=== PATIENT | male | born 1935 | race Caucasian/White ===

== ENCOUNTER 2016-08-05 13:19 | Inpatient (IN) ==
[2016-08-05] MEDS ORDERED: ASPIRIN 325 MG TABLET PO STA (14:08)
[2016-08-05] MEDS ORDERED: ONDANSETRON ODT 4 MG TABLET PO STA (14:08)
[2016-08-05] MEDS ORDERED: MORPHINE 2 MG/1 ML SYRINGE IV STA (14:08)
[2016-08-05] MEDS ORDERED: ALBUTEROL 2.5 MG/3 ML NEB RESP TX STA ×2 (14:12→15:45)
--- NOTE | 2016-08-05 14:13 | EKG Report ---
Stationary ECG Study 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
[2016-08-05] MEDS ORDERED: MORPHINE 2 MG/1 ML SYRINGE ONE (14:18)
[2016-08-05] MEDS ORDERED: ASPIRIN 325 MG TABLET ONE (14:18)
[2016-08-05] MEDS ORDERED: ONDANSETRON ODT 4 MG TABLET PO ONE (14:18)
[2016-08-05 14:23] LABS: Basophils % 0.2 % (0.0-0.8); Hematocrit 39.7 VOL% (42.0-52.0); Hemoglobin 13.1 GM/DL (14.0-18.0); Immature Granulocytes % 1.2 %; Immature Granulocytes Absolute 0.17 #; Lymphocytes # 0.8 10*3/uL (1.4-4.0); Lymphocytes % 5.3 % (21.2-54.2); Mean Corpuscular Hemoglobin 31 PG (27-34); Mean Platelet Volume 10.5 FL (9.6-12.0); Monocytes # 0.3 10*3/uL (0.11-0.8); Monocytes % 2.1 % (1.7-12.7); Neutrophils % 91.2 % (38.7-73.9); Platelet Count 160 T/CUMM (130-400); Red Blood Count 4.18 MC/CUMM (3.8-5.5); Red Cell Distribution Width 13.8 % (9.3-17.3); White Blood Count 14.3 T/CUMM (4-12)
[2016-08-05 14:35] LABS: INR 1.4; PT Patient Result 15.1 SECS
--- NOTE | 2016-08-05 14:35 | XRay Report ---
XR chest 1V portable Indication: Shortness of breath, chest pain Comparison: 02 Sep 2015 Findings: The heart and mediastinum are stable in size and configuration with cardiac surgery changes. The pulmonary vascularity is normal in caliber. There is hazy increased pulmonary density on the left. No other lung infiltrates, effusions, pneumothorax or other abnormality is demonstrated. Impression: Hazy increased left lung pulmonary density, may indicate pneumonia. PROCEDURE INTERPRETED AT [facility] DEPARTMENT OF RADIOLOGY Final Report Signed by: Dr. Ramakrishna Andino
--- NOTE | 2016-08-05 14:36 | Emergency Department Note ---
Osmin Best Hilary, am scribing for, and in the presence of, Elier Rey MD 14: 20. Krissy Best James D, MD, personally performed the services described in this documentation, ascribed by Madhuri Solorio in my presence, and it is both accurate and complete 436 . Arrival - Arrival Chief Complaint: Shortness of Breath Stated Complaint: fever,chest pain congestion nausea ED Nursing Triage Note: PT C/O COUGH AND CONGESTION WITH PAIN TO CHEST WALL WHEN COUGHING. PT STATES WAS SEEN YESTERDAY IN ER FOR C/O NAUSEA AND VOMITING BUT HE HAS NOT GOTTEN ANY BETTER. Mode of Arrival: Wheelchair Limitations: No Limitations Source: Patient, RN Notes Reviewed Time Seen by Provider: 08/05/16 14:02 - History of Present Illness HPI Narrative: Pt is a 81 y/o white male presenting to the ED with c/o cough and congestion with pain to the chest wall when coughing. Pts states that he started having nausea and vomiting after being seen in the ED yesterday. Pt confirms nausea, vomiting, congestion, cough, and chest wall tenderness but denies abdominal pain. No other complaints or problems stated in the ED. Pt was in the ED for nausea and vomiting yesterday and states that the zofran has been helping. Onset (ago): day(s) Allergies/Adverse Reactions: Allergies Allergy/AdvReac Type Severity Reaction Status Date / Time codeine Allergy Unknown/Unable Verified 08/05/16 13:40 to obtain latex Allergy Unknown/Unable Verified 08/05/16 13:40 to obtain sulfacetamide Allergy Unknown/Unable Verified 08/05/16 13:40 to obtain sumatriptan Allergy Unknown/Unable Verified 08/05/16 13:40 to obtain Home Medications: Home Medications Medication Instructions Recorded Confirmed Type Polyethylene Glycol Powder 17 gm PO DAILY 07/18/14 08/05/16 History [Miralax] amLODIPine [Norvasc] 10 mg PO DAILY 07/18/14 08/05/16 History Aspirin EC Tab 1 tablet PO DAILY 02/06/15 08/05/16 History Albuterol Neb [Proventil Neb] 2.5 mg RESP TX Q4H PRN 03/12/15 08/05/16 History Clopidogrel [Plavix] 75 mg PO DAILY 08/24/15 08/05/16 History Butalbital/Acet/Caff 50-325-40 1 tablet PO BID 08/04/16 08/05/16 History [Fioricet 50-325-40 mg Tablet] Dabigatran [Pradaxa] 75 mg PO BID 08/04/16 08/05/16 History Ondansetron [Ondansetron Odt] 4 mg PO Q4H PRN #10 tab.rapdis 08/04/16 08/05/16 Rx Valsartan 160 mg PO DAILY 08/04/16 08/05/16 History Review of System - Review of System 12 point system: reviewed and no additional remarkable complaints except as stated - Review of System Constitutional: Absent: fever Respiratory: Present: cough, wheezing Cardiovascular: Present: chest pain Gastrointestinal: Absent: abdominal pain Medical,Surgical,& Family Hx - Medical History Cardio: History of: Cerebrovascular Disease, Congenital Heart Disease (PFO), CAD , Hypertension, PVD (Right leg) Psychological: History of: Anxiety Disorders Neurology: History of: Cerebrovascular Accident, TIA No history of: Seizures HEENT: History of: Eye Problem (macular degeneration) Endocrine: History of: Dyslipidemia Respiratory: History of: Bronchitis, COPD, Pneumonia Genitourinary: History of: Bladder Problem (bladder ca), Prostate Problems ( radiation, ca 2007) Gastrointestinal: History of: GERD, Hemorrhoids, Polyps Musculoskeletal: History of: Back/Neck Problems, Musculoskeletal Problems ( arthritis) Hematology: No history of: Blood Transfusion Reaction Other: History of: Cancer (prostate & bladder), Eczema, Skin Problems (Rosechia) No history of: Anesthesia Reactions - Surgical History Cardiac Surgeries: Sugical HX of: Femoral-Popliteal Bypass Graft, Cardiac Catheterization (stent), Cardiac Surgery (CABG 2001) HEENT Surgeries: Surgical HX of: Eye Surgery (bilateral cataracts.) Abdominal Surgeries: Surgical HX of: Colonoscopy, EGD Reproductive Surgeries: Surgical HX of;: Prostate Surgery (TURP) - Family History Family History: Reports;: Family Cancer (brother had lung cancer, son had lung) , Family Hypertension (mother, two sisters), Family Stroke (mother, son) - Social History Smoking Status: Former smoker Frequency of Alcohol Use: None Type of Drug Use: None Exam Physical Examination: GENERAL: This is a well-nourished, well-developed male in no apparent distress. VITAL SIGNS: Temperature: 97 Pulse: 114H Respiratory: 18 Blood Pressure: 101/49 Pulse O2 saturation: 84 HEENT: Head is normocephalic and atraumatic. Pupils are equally round and reactive to light. Extraocular movement are intact. Oropharynx is benign with moist mucous membranes. NECK: Neck is soft and supple without tenderness. There are no masses. There is no lymphadenopathy. LUNGS: Course breath sounds bilaterally. Chest rises symmetrically. There is slight chest wall tenderness. CV: Heart is regular rate and rhythm without murmurs, rubs, or gallops. ABDOMEN: Abdomen is soft, non-tender to palpation. There are no abnormal masses palpated. There is no organomegaly. Bowel sounds are present and active. SKIN: Skin is warm and dry. No rash. EXTREMITIES: Patient has full range of motion without tenderness. There is no pedal edema. NEUROLOGIC: Awake, alert, and oriented x4. Cranial nerves II through XII are grossly intact. There are no motorsensory deficits. PSYCHIATRIC: Normal affect. Normal mood. Vital Signs: Vital Signs Temperature 97 F L 08/05/16 13:35 Pulse Rate 104 H 08/05/16 14:40 Respiratory Rate 30 H 08/05/16 14:40 Blood Pressure 114/78 08/05/16 14:30 O2 Sat by Pulse Oximetry 95 08/05/16 14:40 Results - Labs CBC & BMP: 08/05/16 14:08 08/05/16 14:08 Lab Results: I have reviewed the patients labs Labs: Laboratory Tests 08/05/16 14:08 WBC 14.3 H RBC 4.18 Hgb 13.1 L Hct 39.7 L Neut % (Auto) 91.2 H Lymph % (Auto) 5.3 L Neut # (Auto) 13.0 H Lymph # (Auto) 0.8 L Laboratory Tests 08/05/16 14:08 Circ Anticoag PTT 43.5 H D Laboratory Tests 08/05/16 14:08 B-Natriuretic Peptide 883 H Laboratory Tests 08/05/16 08/05/16 14:08 14:08 Troponin I 0.168 H B-Natriuretic Peptide 883 H Laboratory Tests 08/05/16 14:08 Sodium 135 L Carbon Dioxide 20 L Anion Gap 16.8 H BUN 41 H Creatinine 2.30 H Calcium 8.2 L Alkaline Phosphatase 43 L Troponin I 0.168 H Albumin 3.0 L Globulin 4.1 H Albumin/Globulin Ratio 0.7 L - EKG EKG results: interpreted by ERMD - Impressions EKG: Sinus tachycardia with rate of 116, short OH interval, ST segment depression and T-wave inversion laterally, normal axis. - Diagnostic Findings Procedure: Chest x-ray: report reviewed by me (Hazy increased left lung pulmonary density, may indicate pneumonia.) Disposition Clinical Impression: Chest pain, Chronic headache Case discussed with: patient, patient's family Disposition: Still a Patient Condition: Stable
[2016-08-05 14:39] LABS: Partial Thromboplastin Time 43.5 SECS (0-40)
[2016-08-05 15:06] LABS: Bilirubin,Total 0.5 MG/DL (0.2-1.0); Calcium 8.2 MG/DL (8.5-10.1); Osmolality,Calculated 279.1 MOS/KG (273-304); Potassium 4.8 MMOL/L (3.5-5.1); Total Protein 7.1 G/DL (6.4-8.3)
[2016-08-05 15:14] LABS: Troponin I Only 0.168 NG/ML (0.00-0.045)
[2016-08-05] MEDS ORDERED: FUROSEMIDE 40 MG/4 ML VIAL IV STA (15:39)
[2016-08-05] MEDS ORDERED: FUROSEMIDE 40 MG/4 ML VIAL ONE (15:49)
--- NOTE | 2016-08-05 15:57 | Hospitalist History & Physical ---
<Kimberly Kimda - Last Filed: 08/05/16 18:05> History of Present Illness Chief complaint: "chest pain; nausea and vomiting" History of present illness: This a 81 year old male that presented to the ED today with a chief complaint of shortness of breath, chest pain, and nausea/vomiting. The patient has a very impressive medical history of hypertension, chronic obstructive pulmonary disease, corany artery disease,and cerebral vascular accident. He has a surgical history of cardiac stent placement; for which he is on life-long coagulant use and cardiac bypass graft. He reported an onset of symptoms on yesterday. In addition, he reports that he was evaluted on yesterday for the same above complaints, he was evaluated and sent home. He was given Zofran at the time of discharge and the nausea and vomiting subsided momentarily. Home Medications Medication Instructions Recorded Confirmed Type Polyethylene Glycol Powder 17 gm PO DAILY 07/18/14 08/05/16 History [Miralax] amLODIPine [Norvasc] 10 mg PO DAILY 07/18/14 08/05/16 History Aspirin EC Tab 1 tablet PO DAILY 02/06/15 08/05/16 History Albuterol Neb [Proventil Neb] 2.5 mg RESP TX Q4H PRN 03/12/15 08/05/16 History Clopidogrel [Plavix] 75 mg PO DAILY 08/24/15 08/05/16 History Butalbital/Acet/Caff 50-325-40 1 tablet PO BID 08/04/16 08/05/16 History [Fioricet 50-325-40 mg Tablet] Dabigatran [Pradaxa] 75 mg PO BID 08/04/16 08/05/16 History Ondansetron [Ondansetron Odt] 4 mg PO Q4H PRN #10 tab.rapdis 08/04/16 08/05/16 Rx Valsartan 160 mg PO DAILY 08/04/16 08/05/16 History Budesonide/Formoterol 160-4.5 2 puff INH BID 08/05/16 08/05/16 History [Symbicort 160-4.5] Allergies Allergy/AdvReac Type Severity Reaction Status Date / Time codeine Allergy Unknown/Unable Verified 08/05/16 13:40 to obtain latex Allergy Unknown/Unable Verified 08/05/16 13:40 to obtain sulfacetamide Allergy Unknown/Unable Verified 08/05/16 13:40 to obtain sumatriptan Allergy Unknown/Unable Verified 08/05/16 13:40 to obtain Medical,Surgical,& Family Hx - Medical History Cardio: History of: Cerebrovascular Disease, Congenital Heart Disease (PFO), CAD , Hypertension, PVD (Right leg) Psychological: History of: Anxiety Disorders Neurology: History of: Cerebrovascular Accident, TIA No history of: Seizures HEENT: History of: Eye Problem (macular degeneration) Endocrine: History of: Dyslipidemia Respiratory: History of: Bronchitis, COPD, Pneumonia Genitourinary: History of: Bladder Problem (bladder ca), Prostate Problems ( radiation, ca 2007) Gastrointestinal: History of: GERD, Hemorrhoids, Polyps Musculoskeletal: History of: Back/Neck Problems, Musculoskeletal Problems ( arthritis) Hematology: No history of: Blood Transfusion Reaction Other: History of: Cancer (prostate & bladder), Eczema, Skin Problems (Rosechia) No history of: Anesthesia Reactions - Surgical History Cardiac Surgeries: Sugical HX of: Femoral-Popliteal Bypass Graft, Cardiac Catheterization (stent), Cardiac Surgery (CABG 2001) HEENT Surgeries: Surgical HX of: Eye Surgery (bilateral cataracts.) Abdominal Surgeries: Surgical HX of: Colonoscopy, EGD Reproductive Surgeries: Surgical HX of;: Prostate Surgery (TURP) - Family History Family History: Reports;: Family Cancer (brother had lung cancer, son had lung) , Family Hypertension (mother, two sisters), Family Stroke (mother, son) - Social History Smoking Status: Former smoker Frequency of Alcohol Use: None Type of Drug Use: None Exam - Constitutional Vitals: Period Temp Pulse Resp BP Sys/Chen Pulse Ox Last 24 Hr 97 F-97 F 104-114 18-30 101-117/49-78 84-95 Results - Labs CBC & BMP: 08/05/16 14:08 08/05/16 14:08 <Mehul Thorne - Last Filed: 08/05/16 18:11> Assessment and Plan (1) Pneumonia Status: Acute Assessment and plan: The patient is admitted to the hospital with left upper lobe pneumonia superimposed upon COPD exacerbation and causing the patient to have chest pain due to angina. The patient may also be having pleuritic component of chest pain. The patient will be placed on pneumonia pathway with IV antibiotics including Levaquin and Rocephin. The patient will have IV steroid and inhaled beta agonist nebulized breathing medicines. I have coordinated care with Dr. Poole. We will also have consultation with a director intelligence analysis programs. The patient will receive morphine to reduce pleuritic chest discomfort, reduced dyspnea, And treat angina. I coordinated care and explained the plan of care to the patient and his family at the bedside. Current Visit: Yes Qualifiers: Pneumonia type: due to Pneumococcus Laterality: left Lung location: upper lobe of lung Qualified Code(s): J13 - Pneumonia due to Streptococcus pneumoniae (2) COPD exacerbation Status: Acute Current Visit: Yes (3) Coronary artery disease Status: Acute Current Visit: No History of Present Illness History of present illness: The patient's shortness of breath is accompanied with cough and upper airway congestion consistent with COPD exacerbation. The patient is having left chest discomfort which is moderate, continuous, and improved in the emergency room with some morphine. The patient does not complain of fever, chills, swelling. The patient's last coronary arteriogram was in April 2016 and at that time the major vessels were open. Exam - Constitutional Vitals: Period Temp Pulse Resp BP Sys/Chen Pulse Ox Last 24 Hr 99.1 F 107-114 23-33 99-123/57-60 90-96 Exam: Constitutional System: Mild to moderate distress. Mild tremulousness. Head: Normocephalic, atraumatic. Ears, Nose and Throat System: No evidence of Otitis or Mastoiditis. No epistaxis or discharge Eyes System: Pupils equal, round, and reactive. Extraocular muscles intact. Neck: Supple, without adenopathy, No jugular venous distention. No thyromegaly , neck mass, or prior surgery apparent. Respiratory System: Chest moderate upper airway congestion to auscultation. Cardiovascular System: Heart with regular rate and rhythm. No murmur. Status post bypass grafting with healed thoracotomy GI System: Abdomen soft, nontender. Normo active bowel sounds present. Musculoskeletal System: limbs with no pedal edema. Full distal pulses. Neurological System: No discernable sensory deficit. No aphasia Psychiatric System: Conversation is rational Results - Labs CBC & BMP: 08/05/16 14:08 08/05/16 14:08 Lab Results: I have reviewed the past 24 hour labs - EKG EKG results: sinus rhythm EKG shows: tachycardia - Diagnostic Findings Procedure: Chest x-ray: image reviewed by me, report reviewed by me (Left upper lobe pneumonia)
[2016-08-05 16:30] LABS: Apearance,Urine Slightly Hazy (Clear); Bilirubin,Urine Negative (Negative); Blood, Urine Negative (Negative); Glucose,Urine (UA) Negative (Negative); Ketones,Urine Negative (Negative); Mucus,Urine Occasional /LPF (Occasional); Nitrite,Urine Negative (Negative); Protein,Urine Negative; RBC,Urine 1 /HPF (0-4); Urine Urobilinogen < 2.0 EU/DL (0.2-1.0); WBC,Urine 2 /HPF (0-6)
[2016-08-05 16:31] LABS: Urine Color Yellow (Yellow)
[2016-08-05 16:31] LABS: Band Neutrophils 14 % (0-10); Burr Cells Few; Lymphocytes 4 % (20-55); Platelet Estimate Normal; Poikilocytosis 1+; Segmented Neutrophils 77 % (50-85); Total Cells Counted 100
[2016-08-05] MEDS ORDERED: MAGNESIUM SULF RIDER 2 GM in PREMIX 1 EACH IV PRN (16:50)
[2016-08-05] MEDS ORDERED: INSULIN REGULAR 100 UNIT/ML SUBCUT ONE (16:50)
[2016-08-05] MEDS ORDERED: POTASSIUM CHLORIDE 20 MEQ TABLET PO PRN (16:50)
[2016-08-05] MEDS: ONDANSETRON 4 MG/2 ML VIAL IV PRN ×2 (17:14→23:51)
--- NOTE | 2016-08-05 17:14 | EKG Report ---
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
[2016-08-05 17:48] LABS: Magnesium 1.9 MG/DL (1.8-2.4); Risk Ratio 2.79; VLDL CHOLESTEROL 26.8 MG/DL
[2016-08-05] MEDS ORDERED: ONDANSETRON ODT 4 MG TABLET PO PRN (17:57)
--- NOTE | 2016-08-05 17:59 | Pulmonology Consult Note ---
Assessment and Plan (1) Pneumonia Status: Acute Assessment and plan: The patient comes in short of breath and has left-sided pleurisy. He has developed a left upper lobe pneumonia. We will continue broad-spectrum antibiotics. Current Visit: Yes (2) COPD exacerbation Status: Acute Assessment and plan: The patient is having considerable problems with bronchospasm is very short of breath. Will continue with vigorous respiratory therapy. Current Visit: Yes (3) Renal insufficiency Status: Acute Assessment and plan: Patient's creatinine is up to 2.3 Current Visit: Yes (4) Coronary artery disease Status: Acute Assessment and plan: Patient has known coronary artery disease with previous stents. Current Visit: No History of Present Illness Chief complaint: Shortness of breath History of present illness: Mr. Boo is a 81 year old white male has known coronary artery disease and long history of COPD. He also has a history of hypertension. He states the last 2 days he has had coughing and chest congestion and more shortness of breath. Today apparently he is very short of breath and came in as considerable left upper lobe pneumonia. He has been having some pleuritic left chest pain and just does not feel very well. He has been coughing up some thick sputum. He has bronchodilators at home but does not use them very regularly. His last hospitalization last year was for a stent. Home Medications Medication Instructions Recorded Confirmed Type Polyethylene Glycol Powder 17 gm PO DAILY 07/18/14 08/05/16 History [Miralax] amLODIPine [Norvasc] 10 mg PO DAILY 07/18/14 08/05/16 History Aspirin EC Tab 1 tablet PO DAILY 02/06/15 08/05/16 History Albuterol Neb [Proventil Neb] 2.5 mg RESP TX Q4H PRN 03/12/15 08/05/16 History Clopidogrel [Plavix] 75 mg PO DAILY 08/24/15 08/05/16 History Butalbital/Acet/Caff 50-325-40 1 tablet PO BID 08/04/16 08/05/16 History [Fioricet 50-325-40 mg Tablet] Dabigatran [Pradaxa] 75 mg PO BID 08/04/16 08/05/16 History Ondansetron [Ondansetron Odt] 4 mg PO Q4H PRN #10 tab.rapdis 04/18/17 04/19/17 Rx Valsartan 160 mg PO DAILY 08/04/16 08/05/16 History Budesonide/Formoterol 160-4.5 2 puff INH BID 08/05/16 08/05/16 History [Symbicort 160-4.5] Allergies Allergy/AdvReac Type Severity Reaction Status Date / Time codeine Allergy Unknown/Unable Verified 08/05/16 13:40 to obtain latex Allergy Unknown/Unable Verified 08/05/16 13:40 to obtain sulfacetamide Allergy Unknown/Unable Verified 08/05/16 13:40 to obtain sumatriptan Allergy Unknown/Unable Verified 08/05/16 13:40 to obtain - Constitutional Constitutional: Present: chills, fever(s), weakness - EENT Eyes: Absent: loss of vision Ears: Present: decreased hearing Nose, mouth and throat: Absent: headache(s), sinus pressure - Cardiovascular Cardiovascular: Present: chest pain at rest, dyspnea. Absent: edema, orthopnea - Respiratory Respiratory: Present: cough, wheezing, pain on inspiration, change in phlegm color - Genitourinary Genitourinary: Absent: difficulty urinating, hematuria - Musculoskeletal Musculoskeletal: Absent: arthralgias, muscle weakness - Neurological Neurological: Absent: abnormal speech, confusion, focal weakness Exam (Pulmonay) H&P - Constitutional Vitals: Period Temp Pulse Resp BP Sys/Chen Pulse Ox Last 24 Hr 99.1 F 107-114 23-33 99-123/57-60 90-96 General appearance: mild distress (The patient obviously looks somewhat short of breath with marked rhonchi.), under weight - Head Head exam: Present: normal inspection, normocephalic - Eye Eye exam: Present: EOMI. Absent: scleral icterus Pupils: Present: NEVILLE - ENT ENT exam: Present: normal exam - Neck Neck exam: Present: normal inspection. Absent: lymphadenopathy, thyromegaly - Respiratory Respiratory exam: Present: prolonged expiratory phase, rhonchi, wheezes - Cardiovascular Cardiovascular exam: Present: regular rate and rhythm, tachycardia. Absent: gallop, systolic murmur - GI/Abdominal GI/Abdominal exam: Present: normal bowel sounds, soft. Absent: organomegaly, tenderness - Extremities Exam Extremities exam: Absent: calf tenderness, edema - Neurological Exam Neurological exam: Present: alert, oriented X3 - Psychiatric Psychiatric exam: Present: anxious - Skin Skin exam: Present: warm, dry Medical,Surgical,& Family Hx - Medical History Cardio: History of: Cerebrovascular Disease, Congenital Heart Disease (PFO), CAD , Hypertension, PVD (Right leg) Psychological: History of: Anxiety Disorders Neurology: History of: Cerebrovascular Accident, TIA No history of: Seizures HEENT: History of: Eye Problem (macular degeneration) Endocrine: History of: Dyslipidemia Respiratory: History of: Bronchitis, COPD, Pneumonia Genitourinary: History of: Bladder Problem (bladder ca), Prostate Problems ( radiation, ca 2007) Gastrointestinal: History of: GERD, Hemorrhoids, Polyps Musculoskeletal: History of: Back/Neck Problems, Musculoskeletal Problems ( arthritis) Hematology: No history of: Blood Transfusion Reaction Other: History of: Cancer (prostate & bladder), Eczema, Skin Problems (Rosechia) No history of: Anesthesia Reactions - Surgical History Cardiac Surgeries: Sugical HX of: Femoral-Popliteal Bypass Graft, Cardiac Catheterization (stent), Cardiac Surgery (CABG 2001) HEENT Surgeries: Surgical HX of: Eye Surgery (bilateral cataracts.) Abdominal Surgeries: Surgical HX of: Colonoscopy, EGD Reproductive Surgeries: Surgical HX of;: Prostate Surgery (TURP) - Family History Family History: Reports;: Family Cancer (brother had lung cancer, son had lung) , Family Hypertension (mother, two sisters), Family Stroke (mother, son) - Social History Smoking Status: Former smoker Frequency of Alcohol Use: None Type of Drug Use: None Results - Labs CBC & BMP: 08/05/16 14:08 08/05/16 14:08 - Diagnostic Findings Procedure: Chest x-ray: image reviewed by me, report reviewed by me (Chest x- ray shows diffuse infiltrate in the left upper lobe)
[2016-08-05] MEDS ORDERED: methylPREDNISolone SOD SUC 40 MG/1 ML VIAL IV SCH (18:00)
[2016-08-05] MEDS: MORPHINE 2 MG/1 ML SYRINGE IV PRN ×2 (18:05→23:51)
[2016-08-05] MEDS: LEVOFLOXACIN INJ 500 MG in PREMIX 1 EACH IV SCH (18:15)
[2016-08-05] MEDS: methylPREDNISolone SOD SUC 40 MG/1 ML VIAL IV SCH (18:17)
[2016-08-05] MEDS ORDERED: ALBUTEROL/IPRATROPIUM 3 ML NEB RESP TX SCH (19:00)
--- NOTE | 2016-08-05 19:18 | Cardiology Consult Note ---
Assessment and Plan (1) Acute renal insufficiency Status: Acute Assessment and plan: Patient's BUN/creatinine were normal yesterday with him not elevated. Current Visit: Yes (2) Pleuritic chest pain Status: Acute Assessment and plan: Pain does not sound cardiac. Would not treat as such. Current Visit: Yes (3) Elevated brain natriuretic peptide (BNP) level Status: Acute Assessment and plan: This lady multifactorial. We will await his echocardiogram. Chest x-ray is not indicative of primary vascular congestion or heart failure. Last year his ejection fraction was 70%. Current Visit: Yes (4) Abnormal ECG Status: Acute Assessment and plan: This is left ventricle hypertrophy and repolarization abnormalities. Current Visit: Yes (5) Left ventricular hypertrophy by electrocardiogram Status: Acute Assessment and plan: He has LVH and ECG is old. Will await echocardiogram. Current Visit: Yes (6) Coronary artery disease Status: Acute Assessment and plan: He has had bypass surgery and stents. Clinically he is stable and his symptoms are not angina. His slightly elevated troponins are nondiagnostic and flat. Current Visit: No (7) Essential hypertension Status: Acute Assessment and plan: His his blood pressures are stable at this time. Current Visit: No (8) Pneumonia Status: Acute Assessment and plan: This is as per chest x-ray. He does have elevated white count. Current Visit: Yes Qualifiers: Pneumonia type: due to Pneumococcus Laterality: left Lung location: upper lobe of lung Qualified Code(s): J13 - Pneumonia due to Streptococcus pneumoniae (9) COPD exacerbation Status: Acute Assessment and plan: He has a history of COPD and now exacerbation of this. Current Visit: Yes History of Present Illness - Data of Consult Patient: known to practice within the last 3 years Consult date: 08/05/16 Requesting Physician: Mehul Thorne - Consult Narrative Reason for consult: chest pain History of present illness: Mr. Boo is a 81 year old male who is known to Dr. Ronaldo Frias having coronary disease and previous bypass surgery 2001. Last year he had stents placed. He is since then done fairly well. He denies any anginal symptomatology in recent history. Yesterday he was here apparently at the hospital ER with nausea vomiting or diarrhea. He was evaluated and sent home. Since yesterday he has developed progressive shortness of breath and pleuritic type left chest pain but continued to have some nausea but not vomiting and he was having. The chest pain is worse with deep breath cough and somewhat tender in his left chest and states this one area. It does not radiate. He is developed a lot of congestion in his chest. He does carry a history of COPD. He states his chest pain is nothing like he had prior to his stents. He and his indicates that he has had subjective fever and chills. His ECG reveals sinus tachycardia with left ventricular hypertrophy with repolarization abnormalities. This is very similar to his prior ECGs. Chest x- ray per radiology report indicates a left lung pulmonary density that may indicate pneumonia. His lab work with elevated white count and left shift. His chemistries are noted with potassium stable. Since yesterday his BUN and creatinine have increased significantly from a BUN of 16-41 and creatinine 1.0 2.3. His troponin level is flat today at 0.168 and 0.178. His BNP is elevated at 883. Should be noted one year ago that his ejection fraction was 70% on coronary angiography/ventriculogram. Dr. Poole primary medicine physician has pneumonia and COPD exacerbation. CC: Mehul Thorne MD - Home Medications and Allergies Home Medications: Home Medications Medication Instructions Recorded Confirmed Type Polyethylene Glycol Powder 17 gm PO DAILY 07/18/14 08/05/16 History [Miralax] amLODIPine [Norvasc] 10 mg PO DAILY 07/18/14 08/05/16 History Aspirin EC Tab 1 tablet PO DAILY 02/06/15 08/05/16 History Albuterol Neb [Proventil Neb] 2.5 mg RESP TX Q4H PRN 03/12/15 08/05/16 History Clopidogrel [Plavix] 75 mg PO DAILY 08/24/15 08/05/16 History Butalbital/Acet/Caff 50-325-40 1 tablet PO BID 08/04/16 08/05/16 History [Fioricet 50-325-40 mg Tablet] Dabigatran [Pradaxa] 75 mg PO BID 08/04/16 08/05/16 History Ondansetron [Ondansetron Odt] 4 mg PO Q4H PRN #10 tab.rapdis 08/04/16 08/05/16 Rx Valsartan 160 mg PO DAILY 08/04/16 08/05/16 History Budesonide/Formoterol 160-4.5 2 puff INH BID 08/05/16 08/05/16 History [Symbicort 160-4.5] Allergies/Adverse Reactions: Allergies Allergy/AdvReac Type Severity Reaction Status Date / Time codeine Allergy Unknown/Unable Verified 08/05/16 13:40 to obtain latex Allergy Unknown/Unable Verified 08/05/16 13:40 to obtain sulfacetamide Allergy Unknown/Unable Verified 08/05/16 13:40 to obtain sumatriptan Allergy Unknown/Unable Verified 08/05/16 13:40 to obtain Review of systems: Constitutional: Subjective fever and chills the last 24-48 hours. Eyes: Denies visual changes or loss of vision Ears: Denies decreased hearing, vertigo Nose, mouth and throat: Denies dysphagia, epistaxis, neck pain, tongue swelling , but he has been having a headache. Neck: Denies thyromegaly or masses. No stiffness. Cardiovascular: as per HPI Respiratory: The last 24 hours she has developed coughing and congestion and an element of shortness of breath and wheezing as well as began to cough up some sputum. Denies hemoptysis Gastrointestinal: The last 20 448 hours he has had nausea vomiting or diarrhea. Some nonspecific discomfort in the abdomen. Genitourinary: Denies dysuria, hematuria, nocturia Musculoskeletal: He has had some arthritis symptoms. Neurological: denies abnormal gait, abnormal speech, confusion, convulsions, frequent falls, headaches, memory loss, syncope Psychiatric: Denies anxiety, confusion, depression Endocrine: Denies cold intolerance, fatigue, heat intolerance Hematologic/Lymphatic: Denies easy bleeding, easy bruising Dermatologic: Denies Rash, itching, shingles Medical,Surgical,& Family Hx - Medical History Cardio: History of: Cerebrovascular Disease, Congenital Heart Disease (PFO), CAD , Hypertension, PVD (Right leg) Psychological: History of: Anxiety Disorders Neurology: History of: Cerebrovascular Accident, TIA No history of: Seizures HEENT: History of: Eye Problem (macular degeneration) Endocrine: History of: Dyslipidemia Respiratory: History of: Bronchitis, COPD, Pneumonia Genitourinary: History of: Bladder Problem (bladder ca), Prostate Problems ( radiation, ca 2007) Gastrointestinal: History of: GERD, Hemorrhoids, Polyps Musculoskeletal: History of: Back/Neck Problems, Musculoskeletal Problems ( arthritis) Hematology: No history of: Blood Transfusion Reaction Other: History of: Cancer (prostate & bladder), Eczema, Skin Problems ([place]) No history of: Anesthesia Reactions - Surgical History Cardiac Surgeries: Sugical HX of: Femoral-Popliteal Bypass Graft, Cardiac Catheterization (stent), Cardiac Surgery (CABG 2001) HEENT Surgeries: Surgical HX of: Eye Surgery (bilateral cataracts.) Abdominal Surgeries: Surgical HX of: Colonoscopy, EGD Reproductive Surgeries: Surgical HX of;: Prostate Surgery (TURP) - Family History Family History: Reports;: Family Cancer (brother had lung cancer, son had lung) , Family Hypertension (mother, two sisters), Family Stroke (mother, son) - Social History Smoking Status: Former smoker Frequency of Alcohol Use: None Type of Drug Use: None Marital Status: Lives With:: Spouse Functional capacity: independent ambulation Physical Examination Vital Signs Temp Pulse Resp BP Pulse Ox 97 F L 114 H 18 101/49 84 L 08/05/16 13:35 08/05/16 13:35 08/05/16 13:35 08/05/16 13:35 08/05/16 13:35 Other: General appearance: Thin man who appears frail at least mild E0. Head exam: normal inspection, atraumatic Eye exam: Pupils are equal and reactive. EOMI. There is no trauma. Ear exam: Anatomically normal. Normal auditory acuity to conversation. Oral exam: No significant oral lesions. Neck exam: normal inspection no JVD. No carotid bruit. Trachea is in midline. Respiratory exam: Patient is a little tachypnic as well as marked rhonchi and congestion and slight wheezing. Cardiovascular exam: Tachycardic but regular rate and rhythm, no murmur or gallop or rub. Heart sounds was cured by his breath sounds. No precordial lift. No bruits over the major arteries. Chest wall/torso: Anatomically normal. Mild tenderness in the left upper chest that reproduces his chest pain. Peripheral Pulses: Pulses are 1-2+ in the upper extremities. GI/Abdominal exam: Slightly diminished bowel sounds, soft and nontender, no abdominal bruits or pulsatile masses. Musculoskeletal/Extremities exam: normal inspection without edema or cyanosis. No deformities or trauma. Neurological exam: alert, oriented X3. There is no gross neurologic deficits. Psychiatric exam: normal affect, normal mood. Cognitive function is grossly intact. Skin exam: normal color, warm. No rashes or other skin lesions. Result/EKG - Labs CBC & BMP: 08/05/16 14:08 08/05/16 14:08 Lab Results: I have reviewed the past 24 hour labs Labs: Laboratory Results - last 24 hr 08/05/16 08/05/16 08/05/16 15:52 16:57 16:57 POC Glucose Magnesium 1.9 Troponin I B-Natriuretic Peptide 704 H Triglycerides 134 Cholesterol 106 LDL Cholesterol 38.0 VLDL Cholesterol 26.8 HDL Cholesterol 38 L Heart Disease Risk Ratio 2.79 Urine Color Yellow Urine Appearance Slightly hazy Urine pH 5.0 Ur Specific [place] 1.020 Urine Protein Negative Urine Glucose (UA) Negative Urine Ketones Negative Urine Blood Negative Urine Nitrate Negative Urine Bilirubin Negative Urine Urobilinogen < 2.0 H Urine Leukocytes Negative Urine RBC 1 Urine WBC 2 Urine Mucus Occasional Ur Culture Indicated? Ordered separately 08/05/16 08/05/16 16:57 17:15 POC Glucose 111 H Magnesium Troponin I 0.178 H B-Natriuretic Peptide Triglycerides Cholesterol LDL Cholesterol VLDL Cholesterol HDL Cholesterol Heart Disease Risk Ratio Urine Color Urine Appearance Urine pH Ur Specific [place] Urine Protein Urine Glucose (UA) Urine Ketones Urine Blood Urine Nitrate Urine Bilirubin Urine Urobilinogen Urine Leukocytes Urine RBC Urine WBC Urine Mucus Ur Culture Indicated? - Impressions Impressions: ECG with sinus tachycardia left ventricle per Trippi repolarization abnormality secondary to this.
[2016-08-05] MEDS: ALBUTEROL/IPRATROPIUM 3 ML NEB RESP TX SCH ×2 (19:28→22:40)
[2016-08-05] MEDS: cefTRIAXone 1,000 MG in SODIUM CHLORIDE 0.9% 100 ML IV SCH (20:01)
[2016-08-05] MEDS: DABIGATRAN 75 MG CAPSULE PO SCH (20:28)
[2016-08-05] MEDS: BUDESONIDE/FORMOTEROL 160-4.5 INHALER 6 GM INH SCH (20:28)
[2016-08-05] MEDS: BUTALBITAL/ACETAMIN/CAFFEINE 50-325-40 MG TABLET PO SCH (20:28)
[2016-08-05] MEDS: ZALEPLON 5 MG CAPSULE PO PRN (23:45)
[2016-08-06] MEDS: methylPREDNISolone SOD SUC 40 MG/1 ML VIAL IV SCH ×4 (00:33→18:17)
[2016-08-06] MEDS: ALBUTEROL/IPRATROPIUM 3 ML NEB RESP TX SCH ×6 (02:22→23:43)
[2016-08-06 04:05] LABS: Basophils % 0.2 % (0.0-0.8); Hemoglobin 11.7 GM/DL (14.0-18.0); Immature Granulocytes % 0.5 %; Immature Granulocytes Absolute 0.05 #; Lymphocytes # 0.1 10*3/uL (1.4-4.0); Lymphocytes % 1.4 % (21.2-54.2); Mean Corpuscular HGB Conc 33.4 GM/DL (32-36); Mean Corpuscular Hemoglobin 31 PG (27-34); Mean Corpuscular Volume 92.1 FL (87-102); Mean Platelet Volume 10.5 FL (9.6-12.0); Monocytes # 0.1 10*3/uL (0.11-0.8); Monocytes % 1.4 % (1.7-12.7); Neutrophils # 9.4 10*3/uL (1.4-7.4); Neutrophils % 96.5 % (38.7-73.9); Platelet Count 127 T/CUMM (130-400); Red Cell Distribution Width 13.8 % (9.3-17.3); White Blood Count 9.8 T/CUMM (4-12)
[2016-08-06 04:39] LABS: Albumin 2.6 G/DL (3.4-5.0); Bilirubin,Total 0.6 MG/DL (0.2-1.0); Calcium 7.7 MG/DL (8.5-10.1); Magnesium 2.1 MG/DL (1.8-2.4); Osmolality,Calculated 286.8 MOS/KG (273-304); Potassium 4.6 MMOL/L (3.5-5.1); Total Protein 6.2 G/DL (6.4-8.3)
[2016-08-06 05:27] LABS: Band Neutrophils 17 % (0-10); Lymphocytes 3 % (20-55); Myelocytes 1 %; Platelet Estimate Normal; Segmented Neutrophils 77 % (50-85); Total Cells Counted 100
[2016-08-06 05:28] LABS: Hypochromasia Slight; Ovalocytes Slight
[2016-08-06] MEDS: ONDANSETRON 4 MG/2 ML VIAL IV PRN (06:18)
[2016-08-06] MEDS: DABIGATRAN 75 MG CAPSULE PO SCH ×2 (08:29→21:22)
[2016-08-06] MEDS: ASPIRIN EC 81 MG TABLET PO SCH (08:30)
[2016-08-06] MEDS: BUTALBITAL/ACETAMIN/CAFFEINE 50-325-40 MG TABLET PO SCH ×2 (08:30→21:22)
[2016-08-06] MEDS: amLODIPine 10 MG TABLET PO SCH (08:30)
[2016-08-06] MEDS: CLOPIDOGREL 75 MG TABLET PO SCH (08:30)
[2016-08-06] MEDS: POLYETHYLENE GLYCOL POWDER 17 GM PACK PO SCH (08:32)
[2016-08-06] MEDS: BUDESONIDE/FORMOTEROL 160-4.5 INHALER 6 GM INH SCH ×2 (08:33→21:22)
[2016-08-06] MEDS ORDERED: PANTOPRAZOLE 40 MG TABLET PO SCH (09:00)
[2016-08-06] MEDS ORDERED: ASPIRIN EC 81 MG TABLET PO SCH (09:00)
[2016-08-06] MEDS ORDERED: VALSARTAN 160 MG TABLET PO SCH (09:00)
[2016-08-06] MEDS ORDERED: CLOPIDOGREL 75 MG TABLET PO SCH (09:00)
--- NOTE | 2016-08-06 10:05 | Pulmonology Progress Note ---
Pulmonary - PN: Subj Interval history: Patient is an 81-year-old that has coronary artery disease and COPD. He came in with left-sided chest pleurisy and shortness of breath and has a left upper lobe pneumonia. He is sitting up in a chair today and looks like his breathing a little better. He says he is not able to produce much sputum. His left chest still hurts to breathe. His wheezing and shortness of breath are better. His chest x-ray looks about the same. Exam (Progress Note) - Constitutional Vitals: Period Temp Pulse Resp BP Sys/Chen Pulse Ox Last 24 Hr 96.7 F-99.1 F 95-116 16-33 99-135/50-91 89-98 Exam: General appearance: mild distress (The patient looks much more comfortable sitting up today and is not having as much distress.) - Head Head exam: Present: normal inspection, normocephalic - Eye Eye exam: Present: EOMI. Absent: scleral icterus Pupils: Present: [place] - ENT ENT exam: Present: normal exam - Neck Neck exam: Present: normal inspection. Absent: lymphadenopathy, thyromegaly - Respiratory Respiratory exam: Present: Patient has coarse breath sounds with just some minimal rhonchi now. - Cardiovascular Cardiovascular exam: Present: regular rate and rhythm, tachycardia. Absent: gallop, systolic murmur - GI/Abdominal GI/Abdominal exam: Present: normal bowel sounds, soft. Absent: organomegaly, tenderness - Extremities Exam Extremities exam: Absent: calf tenderness, edema - Neurological Exam Neurological exam: Present: alert, oriented X3, he moves his extremities okay - Psychiatric Psychiatric exam: Present: anxious - Skin Skin exam: Present: warm, dry Results - Labs CBC & BMP: 08/06/16 03:38 08/06/16 03:38 - Diagnostic Findings Procedure: Chest x-ray: image reviewed by me, report reviewed by me (Chest x- ray shows left upper lobe pneumonia.) Assessment and Plan (1) Pneumonia Status: Acute Assessment and plan: The patient comes in short of breath and has left-sided pleurisy. He has developed a left upper lobe pneumonia. We will continue broad-spectrum antibiotics. He seems to be doing a little better today. Current Visit: Yes Qualifiers: Pneumonia type: due to Pneumococcus Laterality: left Lung location: upper lobe of lung Qualified Code(s): J13 - Pneumonia due to Streptococcus pneumoniae (2) COPD exacerbation Status: Acute Assessment and plan: The patient is breathing much better and having less wheezing. He will continue with present therapy. Current Visit: Yes (3) Renal insufficiency Status: Acute Assessment and plan: Patient's creatinine is 2.2 today. Current Visit: Yes (4) Coronary artery disease Status: Acute Assessment and plan: Patient has known coronary artery disease with previous stents. His chest pain sounds like pleurisy however. Current Visit: No Specialty Discharge - Follow Up or Referrals
--- NOTE | 2016-08-06 10:41 | XRay Report ---
XR chest 1V portable Indication: Chest pain Comparison: 05 August 2016 Findings: The heart and mediastinum are stable in size and configuration with cardiac surgery changes. The pulmonary vascularity is normal in caliber. Left lung infiltrate is present similar to previous exam. No other lung infiltrates, effusions, pneumothorax or other abnormality is demonstrated. Impression: No significant changes. PROCEDURE INTERPRETED AT [facility] DEPARTMENT OF RADIOLOGY Final Report Signed by: Dr. Ramakrishna Andino
--- NOTE | 2016-08-06 12:53 | Hospitalist Progress Note ---
Assessment and Plan (1) Pneumonia Status: Acute Assessment and plan: The patient is admitted to the hospital with left upper lobe pneumonia superimposed upon COPD exacerbation and causing the patient to have chest pain due to pleurisy. The patient will be placed on pneumonia pathway with IV antibiotics including Levaquin and Rocephin. The patient will have IV steroid and inhaled beta agonist nebulized breathing medicines. I have coordinated care with Dr. Poole. The patient will continue treatment of pneumonia through the weekend and anticipate home Wednesday or Wednesday Current Visit: Yes Qualifiers: Pneumonia type: due to Pneumococcus Laterality: left Lung location: upper lobe of lung Qualified Code(s): J13 - Pneumonia due to Streptococcus pneumoniae (2) COPD exacerbation Status: Acute Current Visit: Yes (3) Coronary artery disease Status: Acute Current Visit: No Hospitalist: Subjective Interval history: The patient has somewhat less pleuritic chest discomfort today. He has less sputum production but still with shortness of breath. The patient has no angina or palpitations. Exam - Constitutional Vitals: Period Temp Pulse Resp BP Sys/Chen Pulse Ox Last 24 Hr 96.7 F-99.1 F 95-116 16-33 99-135/50-91 88-98 Exam: Constitutional System: Mild distress. Mild tremulousness. Head: Normocephalic, atraumatic. Ears, Nose and Throat System: No evidence of Otitis or Mastoiditis. No epistaxis or discharge Eyes System: Pupils equal, round, and reactive. Extraocular muscles intact. Neck: Supple, without adenopathy, No jugular venous distention. No thyromegaly , neck mass, or prior surgery apparent. Respiratory System: Chest moderate upper airway congestion to auscultation. Cardiovascular System: Heart with regular rate and rhythm. No murmur. Status post bypass grafting with healed thoracotomy GI System: Abdomen soft, nontender. Normo active bowel sounds present. Musculoskeletal System: limbs with no pedal edema. Full distal pulses. Neurological System: No discernable sensory deficit. No aphasia Psychiatric System: Conversation is rational Results - Labs CBC & BMP: 08/06/16 03:38 08/06/16 03:38 Lab Results: I have reviewed the past 24 hour labs Specialty Discharge - Follow Up or Referrals
--- NOTE | 2016-08-06 13:27 | Cardiology Progress Note ---
Assessment and Plan (1) Pleuritic chest pain Status: Acute Assessment and plan: 1. 81 year-old WM well known to me with remote history of strokes, significant CAD with CABG in 2001 (grafts closed) status post left main stent in 2008, and subsequent restenting distal left main and LAD August 2015 with good result and resolution of symptoms. He now presented with fever, increasing dyspnea with significant wheezing, left-sided infiltrate suggesting pneumonia (leukocytosis on admission) 2. Acute renal failure, possibly related to diuresis? Holding ARB and diuretics for now. 3. Previously normal LV systolic function; will check echocardiogram 4. Trivial troponin elevation is likely due to his illness (0.1), and not ACS 5. Elevated BNP noted Current Visit: Yes (2) Pneumonia Status: Acute Current Visit: Yes Qualifiers: Pneumonia type: due to Pneumococcus Laterality: left Lung location: upper lobe of lung Qualified Code(s): J13 - Pneumonia due to Streptococcus pneumoniae (3) Renal insufficiency Status: Acute Current Visit: Yes (4) Dyslipidemia Status: Acute Current Visit: No Cardiology - PN: Subj Interval history: Thomas still has dyspnea, and has chest discomfort intermittently that is reproducible. He is not having nausea currently he was previously. Exam (Progress Note) - Constitutional Vitals: Period Temp Pulse Resp BP Sys/Chen Pulse Ox Last 24 Hr 96.7 F-99.1 F 95-116 16-33 99-135/50-91 88-98 General appearance: normal weight, no acute distress - Head Head exam: Present: normal inspection, normocephalic, atraumatic - Respiratory Respiratory exam: Present: rales, wheezes - Cardiovascular Cardiovascular exam: Present: regular rate and rhythm. Absent: diastolic murmur , rubs - GI/Abdominal GI/Abdominal exam: Present: soft. Absent: tenderness - Extremities Exam Extremities exam: Absent: edema Result/EKG - Labs CBC & BMP: 08/06/16 03:38 08/06/16 03:38 Labs: Laboratory Results - last 24 hr 08/05/16 08/05/16 08/05/16 15:52 16:57 16:57 WBC RBC Hgb Hct MCV MCH MCHC RDW Plt Count MPV Neut % (Auto) Lymph % (Auto) [place] % (Auto) Eos % (Auto) Baso % (Auto) Neut # (Auto) Lymph # (Auto) [place] # (Auto) Eos # (Auto) Baso # (Auto) Total Counted Immature Gran % Nucleated RBC % Immature Gran # Segmented Neutrophils Band Neutrophils Lymphocytes Monocytes Myelocytes Nucleated RBCs # Platelet Estimate Hypochromasia Ovalocytes Morphology Comment Sodium Potassium Chloride Carbon Dioxide Anion Gap BUN Creatinine GFR Calculation BUN/Creatinine Ratio Glucose POC Glucose Calculated Osmolality Calcium Magnesium 1.9 Total Bilirubin AST ALT Alkaline Phosphatase Troponin I B-Natriuretic Peptide 704 H Total Protein Albumin Globulin Albumin/Globulin Ratio Triglycerides 134 Cholesterol 106 LDL Cholesterol 38.0 VLDL Cholesterol 26.8 HDL Cholesterol 38 L Heart Disease Risk Ratio 2.79 Urine Color Yellow Urine Appearance Slightly hazy Urine pH 5.0 Ur Specific [place] 1.020 Urine Protein Negative Urine Glucose (UA) Negative Urine Ketones Negative Urine Blood Negative Urine Nitrate Negative Urine Bilirubin Negative Urine Urobilinogen < 2.0 H Urine Leukocytes Negative Urine RBC 1 Urine WBC 2 Urine Mucus Occasional Ur Culture Indicated? Ordered separately 08/05/16 08/05/16 08/05/16 16:57 17:15 19:38 WBC RBC Hgb Hct MCV MCH MCHC RDW Plt Count MPV Neut % (Auto) Lymph % (Auto) [place] % (Auto) Eos % (Auto) Baso % (Auto) Neut # (Auto) Lymph # (Auto) [place] # (Auto) Eos # (Auto) Baso # (Auto) Total Counted Immature Gran % Nucleated RBC % Immature Gran # Segmented Neutrophils Band Neutrophils Lymphocytes Monocytes Myelocytes Nucleated RBCs # Platelet Estimate Hypochromasia Ovalocytes Morphology Comment Sodium Potassium Chloride Carbon Dioxide Anion Gap BUN Creatinine GFR Calculation BUN/Creatinine Ratio Glucose POC Glucose 111 H Calculated Osmolality Calcium Magnesium Total Bilirubin AST ALT Alkaline Phosphatase Troponin I 0.178 H 0.154 H B-Natriuretic Peptide Total Protein Albumin Globulin Albumin/Globulin Ratio Triglycerides Cholesterol LDL Cholesterol VLDL Cholesterol HDL Cholesterol Heart Disease Risk Ratio Urine Color Urine Appearance Urine pH Ur Specific [place] Urine Protein Urine Glucose (UA) Urine Ketones Urine Blood Urine Nitrate Urine Bilirubin Urine Urobilinogen Urine Leukocytes Urine RBC Urine WBC Urine Mucus Ur Culture Indicated? 08/05/16 08/05/16 08/06/16 20:09 22:33 03:38 WBC 9.8 D RBC 3.80 Hgb 11.7 L Hct 35.0 L MCV 92.1 MCH 31 MCHC 33.4 RDW 13.8 Plt Count 127 L D MPV 10.5 Neut % (Auto) 96.5 H Lymph % (Auto) 1.4 L [place] % (Auto) 1.4 L Eos % (Auto) 0.0 Baso % (Auto) 0.2 Neut # (Auto) 9.4 H Lymph # (Auto) 0.1 L [place] # (Auto) 0.1 L Eos # (Auto) 0.0 Baso # (Auto) 0.0 Total Counted 100 Immature Gran % 0.5 Nucleated RBC % 0.0 Immature Gran # 0.05 Segmented Neutrophils 77 Band Neutrophils 17 H Lymphocytes 3 L Monocytes 2 Myelocytes 1 Nucleated RBCs # 0.00 Platelet Estimate Normal Hypochromasia Slight Ovalocytes Slight Morphology Comment Sodium Potassium Chloride Carbon Dioxide Anion Gap BUN Creatinine GFR Calculation BUN/Creatinine Ratio Glucose POC Glucose 110 H Calculated Osmolality Calcium Magnesium Total Bilirubin AST ALT Alkaline Phosphatase Troponin I 0.123 H D B-Natriuretic Peptide Total Protein Albumin Globulin Albumin/Globulin Ratio Triglycerides Cholesterol LDL Cholesterol VLDL Cholesterol HDL Cholesterol Heart Disease Risk Ratio Urine Color Urine Appearance Urine pH Ur Specific [place] Urine Protein Urine Glucose (UA) Urine Ketones Urine Blood Urine Nitrate Urine Bilirubin Urine Urobilinogen Urine Leukocytes Urine RBC Urine WBC Urine Mucus Ur Culture Indicated? 08/06/16 08/06/16 08/06/16 03:38 07:51 11:34 WBC RBC Hgb Hct MCV MCH MCHC RDW Plt Count MPV Neut % (Auto) Lymph % (Auto) [place] % (Auto) Eos % (Auto) Baso % (Auto) Neut # (Auto) Lymph # (Auto) [place] # (Auto) Eos # (Auto) Baso # (Auto) Total Counted Immature Gran % Nucleated RBC % Immature Gran # Segmented Neutrophils Band Neutrophils Lymphocytes Monocytes Myelocytes Nucleated RBCs # Platelet Estimate Hypochromasia Ovalocytes Morphology Comment Sodium 137 Potassium 4.6 Chloride 102 Carbon Dioxide 22 Anion Gap 17.6 H BUN 48 H Creatinine 2.20 H GFR Calculation 32 BUN/Creatinine Ratio 21.00 H Glucose 110 H POC Glucose 105 136 H Calculated Osmolality 286.8 Calcium 7.7 L Magnesium 2.1 Total Bilirubin 0.60 AST 43 H ALT 19 Alkaline Phosphatase 35 L Troponin I B-Natriuretic Peptide Total Protein 6.2 L Albumin 2.6 L Globulin 3.6 H Albumin/Globulin Ratio 0.7 L Triglycerides Cholesterol LDL Cholesterol VLDL Cholesterol HDL Cholesterol Heart Disease Risk Ratio Urine Color Urine Appearance Urine pH Ur Specific [place] Urine Protein Urine Glucose (UA) Urine Ketones Urine Blood Urine Nitrate Urine Bilirubin Urine Urobilinogen Urine Leukocytes Urine RBC Urine WBC Urine Mucus Ur Culture Indicated? Specialty Discharge - Follow Up or Referrals
--- NOTE | 2016-08-06 13:52 | EKG Report ---
Stationary ECG Study [facility] Test Date: 08/06/2016 1:48:46 PM Pat Name: RENUKA AVENDANO Department: Room: 281 Gender: M [employer]: : [id number] Requested by: Phil Mejia Order Number: [id number] Reading MD: RUFINO VAZQUEZ Intervals [place] Rate: 152 P: 999 AR: 0 QRS: 50 QRSD: 98 T: 213 QT: 270 QTc: 356 Interpretive Statements ATRIAL FIBRILLATION WITH RAPID VENTRICULAR RESPONSE MINIMAL VOLTAGE CRITERIA FOR LVH, MAY BE NORMAL VARIANT ISCHEMIA OR DIGITALIS EFFECT Electronically Signed On 08-10-16 11:57:27 CDT by RUFINO VAZQUEZ [email or web address]
--- NOTE | 2016-08-06 14:38 | ECHO Report ---
Thomas Boo Exam Date: 08/06/2016 10:12 Referring Physician: Technologist: Jennifer Cook Age: 81 Ht (in): 72 Wt (lb): 172 Gender: M Exam Location: [facility] Echo Indications: LVH, Abn ekg, chest pain, renal insuff., headache, pneumonia, copd BP: 129 / 66 HR: 113 Rhythm: tachy Technical Quality: IMPRESSIONS Technically difficult study 1-2+ left atrial enlargement 2+ concentric LVH Normal LV systolic function with ejection fraction of at least 55% Aortic sclerosis without stenosis 1+ mitral and tricuspid regurgitation with RVSP 60 mmHg plus RAP Grade 1 diastolic dysfunction MEASUREMENTS (Male / Female) Normal Values 2D ECHO LV Diastolic Diameter PLAX 3.9 cm 4.2 - 5.9 / 3.9 - 5.3 cm LV Systolic Diameter PLAX 3.2 cm LV Fractional Shortening PLAX 18.8 % IVS Diastolic Thickness 1.6 cm 0.6 - 1.0 / 0.6 - 0.9 cm LVPW Diastolic Thickness 1.6 cm 0.6 - 1.0 / 0.6 - 0.9 cm Aortic Root Diameter 3.1 cm LA Systolic Diameter LX 4.3 cm 3.0 - 4.0 / 2.7 - 3.8 cm DOPPLER TR Peak Velocity 200.0 cm/s TR Peak Gradient 16.0 mmHg FINDINGS Left Ventricle Moderately increased septal wall thickness. Moderate concentric left ventricular hypertrophy with diastolic dysfunction. Left ventricular ejection fraction is estimated at 50-55%. Right Ventricle Mildly increased right ventricular size. Right Atrium Left Atrium Mildly increased left atrial diameter. Mitral Valve Mild mitral valve sclerosis. Mild mitral valve regurgitation. Aortic Valve Mild aortic valve sclerosis. Trace to mild aortic valve regurgitation. Tricuspid Valve Morphologically normal tricuspid valve. Mild tricuspid valve regurgitation. Tricuspid regurgitation velocities suggest a PAP of 16.0 mmHg + RAP. Pulmonic Valve Pulmonic valve not well visualized. Pericardium No pericardial effusion. Aorta Normal size aortic root and proximal ascending aorta. Phil Moy (Electronically Signed) Final Date: 06 August 2016 14:37
[2016-08-06] MEDS ORDERED: FUROSEMIDE 40 MG/4 ML VIAL IV ONE (16:04)
[2016-08-06] MEDS: LEVOFLOXACIN INJ 500 MG in PREMIX 1 EACH IV SCH (17:13)
[2016-08-06] MEDS: cefTRIAXone 1,000 MG in SODIUM CHLORIDE 0.9% 100 ML IV SCH (18:18)
[2016-08-06] MEDS: ZALEPLON 5 MG CAPSULE PO PRN (21:22)
[2016-08-07] MEDS: methylPREDNISolone SOD SUC 40 MG/1 ML VIAL IV SCH ×4 (01:08→21:09)
[2016-08-07] MEDS: ONDANSETRON 4 MG/2 ML VIAL IV PRN (01:08)
[2016-08-07] MEDS: ALBUTEROL/IPRATROPIUM 3 ML NEB RESP TX SCH ×6 (02:50→23:56)
[2016-08-07] MEDS: MORPHINE 2 MG/1 ML SYRINGE IV PRN (03:40)
[2016-08-07 06:16] LABS: Basophils % 0.2 % (0.0-0.8); Hematocrit 32.2 VOL% (42.0-52.0); Immature Granulocytes % 0.2 %; Immature Granulocytes Absolute 0.03 #; Lymphocytes # 0.3 10*3/uL (1.4-4.0); Lymphocytes % 2.1 % (21.2-54.2); Mean Corpuscular HGB Conc 34.2 GM/DL (32-36); Mean Corpuscular Hemoglobin 31 PG (27-34); Mean Corpuscular Volume 89.7 FL (87-102); Monocytes # 0.2 10*3/uL (0.11-0.8); Monocytes % 1.8 % (1.7-12.7); Neutrophils # 11.5 10*3/uL (1.4-7.4); Neutrophils % 95.7 % (38.7-73.9); Platelet Count 133 T/CUMM (130-400); Red Blood Count 3.59 MC/CUMM (3.8-5.5); Red Cell Distribution Width 13.7 % (9.3-17.3); White Blood Count 12.1 T/CUMM (4-12)
[2016-08-07 06:45] LABS: Band Neutrophils 5 % (0-10); Hypochromasia 1+; Platelet Estimate Normal; Segmented Neutrophils 93 % (50-85); Total Cells Counted 100
[2016-08-07 07:14] LABS: Calcium 7.8 MG/DL (8.5-10.1); Magnesium 2.5 MG/DL (1.8-2.4); Potassium 3.9 MMOL/L (3.5-5.1)
--- NOTE | 2016-08-07 09:10 | Hospitalist Progress Note ---
Assessment and Plan (1) Pneumonia Status: Acute Assessment and plan: The patient is admitted to the hospital with left upper lobe pneumonia superimposed upon COPD exacerbation and causing the patient to have chest pain due to pleurisy. The patient continues on pneumonia pathway with IV antibiotics including Levaquin and Rocephin. The patient will have IV steroid and inhaled beta agonist nebulized breathing medicines. I have coordinated care with Dr. Poole. The patient will continue treatment of pneumonia through the weekend and anticipate Dr. Real will assume his care on Wednesday. I am going to add some Ativan for anxiety today and some Robitussin-AC to help with his cough. I am going to increase his Protonix to twice daily to reduce reflux symptoms. Current Visit: Yes Qualifiers: Pneumonia type: due to Pneumococcus Laterality: left Lung location: upper lobe of lung Qualified Code(s): J13 - Pneumonia due to Streptococcus pneumoniae (2) COPD exacerbation Status: Acute Current Visit: Yes (3) Coronary artery disease Status: Acute Current Visit: No Hospitalist: Subjective Interval history: The patient complains of continued pleurisy left chest. The patient has insomnia. The patient has increased congestion today and anxiety. I coordinated care with Dr. Real his primary care physician. Exam - Constitutional Vitals: Period Temp Pulse Resp BP Sys/Chen Pulse Ox Last 24 Hr 97.1 F-100.0 F 96-143 16-22 114-130/58-68 85-99 Exam: Constitutional System: Mild distress. Mild tremulousness. Head: Normocephalic, atraumatic. Ears, Nose and Throat System: No evidence of Otitis or Mastoiditis. No epistaxis or discharge Eyes System: Pupils equal, round, and reactive. Extraocular muscles intact. Neck: Supple, without adenopathy, No jugular venous distention. No thyromegaly , neck mass, or prior surgery apparent. Respiratory System: Chest moderate upper airway congestion to auscultation. Cardiovascular System: Heart with regular rate and rhythm. No murmur. Status post bypass grafting with healed thoracotomy GI System: Abdomen soft, nontender. Normo active bowel sounds present. Musculoskeletal System: limbs with no pedal edema. Full distal pulses. Neurological System: No discernable sensory deficit. No aphasia Psychiatric System: Conversation is rational Results - Labs CBC & BMP: 08/07/16 04:55 04/21/17 04:55 Lab Results: I have reviewed the past 24 hour labs Specialty Discharge - Follow Up or Referrals
[2016-08-07] MEDS: POLYETHYLENE GLYCOL POWDER 17 GM PACK PO SCH (09:35)
[2016-08-07] MEDS: amLODIPine 10 MG TABLET PO SCH (09:36)
[2016-08-07] MEDS: DABIGATRAN 75 MG CAPSULE PO SCH ×2 (09:36→21:08)
[2016-08-07] MEDS: BUTALBITAL/ACETAMIN/CAFFEINE 50-325-40 MG TABLET PO SCH ×2 (09:36→21:08)
[2016-08-07] MEDS: ASPIRIN EC 81 MG TABLET PO SCH (09:37)
[2016-08-07] MEDS: guaiFENesin/CODEINE 5 ML LIQUID PO PRN ×3 (09:37→21:11)
[2016-08-07] MEDS: LORazepam 1 MG TABLET PO PRN ×3 (09:37→21:16)
[2016-08-07] MEDS: CLOPIDOGREL 75 MG TABLET PO SCH (09:37)
[2016-08-07] MEDS: PANTOPRAZOLE 40 MG TABLET PO SCH ×2 (09:37→21:09)
[2016-08-07] MEDS: BUDESONIDE/FORMOTEROL 160-4.5 INHALER 6 GM INH SCH ×2 (09:40→21:16)
--- NOTE | 2016-08-07 10:14 | Pulmonology Progress Note ---
Pulmonary - PN: Subj Interval history: Patient is an 81-year-old that has coronary artery disease and COPD. He came in with left-sided chest pleurisy and shortness of breath and has a left upper lobe pneumonia. He says he has not slept very well and still has some mild pleurisy. His cough and congestion are little better. He does look like he is breathing comfortably. He is tolerating treatments fairly well. He has significant COPD with pneumonia. He will continue treatment through the weekend. Exam (Progress Note) - Constitutional Vitals: Period Temp Pulse Resp BP Sys/Chen Pulse Ox Last 24 Hr 97.1 F-100.0 F 96-143 16-24 114-130/58-68 85-99 Exam: General appearance: no distress (The patient looks much more comfortable lying in bed and does not appear to be in any distress.) - Head Head exam: Present: normal inspection, normocephalic - Eye Eye exam: Present: EOMI. Absent: scleral icterus Pupils: Present: NEVILLE - ENT ENT exam: Present: normal exam - Neck Neck exam: Present: normal inspection. Absent: lymphadenopathy, thyromegaly - Respiratory Respiratory exam: Present: Patient has coarse breath sounds but is moving air fairly well with less wheezing. - Cardiovascular Cardiovascular exam: Present: regular rate and rhythm, tachycardia. Absent: gallop, systolic murmur - GI/Abdominal GI/Abdominal exam: Present: normal bowel sounds, soft. Absent: organomegaly, tenderness - Extremities Exam Extremities exam: Absent: calf tenderness, edema - Neurological Exam Neurological exam: Present: alert, oriented X3, he moves his extremities okay - Psychiatric Psychiatric exam: Present: He looks less anxious today. - Skin Skin exam: Present: warm, dry Results - Labs CBC & BMP: 08/07/16 04:55 08/07/16 04:55 Assessment and Plan (1) Pneumonia Status: Acute Assessment and plan: The patient comes in short of breath and has left-sided pleurisy. He has developed a left upper lobe pneumonia. We will continue broad-spectrum antibiotics. Clinically he looks like he is doing better at present. Current Visit: Yes Qualifiers: Pneumonia type: due to Pneumococcus Laterality: left Lung location: upper lobe of lung Qualified Code(s): J13 - Pneumonia due to Streptococcus pneumoniae (2) COPD exacerbation Status: Acute Assessment and plan: The patient is breathing much better and having less wheezing. He will continue with present therapy. He does look reasonably comfortable Current Visit: Yes (3) Renal insufficiency Status: Acute Assessment and plan: Patient's creatinine is 1.6 today. Current Visit: Yes (4) Coronary artery disease Status: Acute Assessment and plan: Patient has known coronary artery disease with previous stents. His chest pain sounds like pleurisy however. Current Visit: No Specialty Discharge - Follow Up or Referrals
[2016-08-07] MEDS ORDERED: DIGOXIN 0.5 MG/2 ML AMP IV ONE (13:41)
--- NOTE | 2016-08-07 13:50 | Cardiology Progress Note ---
Assessment and Plan (1) Pleuritic chest pain Status: Acute Assessment and plan: 1. 81 year-old WM well known to me with remote history of strokes, significant CAD with CABG in 2001 (grafts closed) status post left main stent in 2008, and subsequent restenting distal left main and LAD August 2015 with good result and resolution of symptoms. He now presented with fever, increasing dyspnea with significant wheezing, left-sided infiltrate suggesting pneumonia (leukocytosis on admission) 2. Acute renal failure, possibly related to diuresis? Holding ARB and diuretics for now. 3. Previously normal LV systolic function; will check echocardiogram 4. Trivial troponin elevation is likely due to his illness (0.1), and not ACS 5. Elevated BNP noted August 07 update: 1. Clinically diagonals improve modestly although he developed new atrial fibrillation with RVR yesterday afternoon (started CPAP last year but is been less compliant in recent weeks; this may be a contributor) 2. Left-sided pneumonia 3. Normal LV systolic function and an echocardiogram 4. Add low-dose amiodarone and Toprol to control rate (improved from the 140s to the 120 range today) 5. Creatinine is improved to 1.6 from 2.2 Current Visit: Yes (2) Pneumonia Status: Acute Current Visit: Yes Qualifiers: Pneumonia type: due to Pneumococcus Laterality: left Lung location: upper lobe of lung Qualified Code(s): J13 - Pneumonia due to Streptococcus pneumoniae (3) Renal insufficiency Status: Acute Current Visit: Yes (4) Dyslipidemia Status: Acute Current Visit: No Cardiology - PN: Subj Interval history: I'll feels a bit better today although he still feels tired and is coughing a lot. He has a little bit of shortness of breath at rest which is improved. He is not having chest discomfort. He developed A. fib RVR yesterday afternoon. Exam (Progress Note) - Constitutional Vitals: Period Temp Pulse Resp BP Sys/Chen Pulse Ox Last 24 Hr 97.1 F-100.0 F 102-143 16-24 114-130/58-68 85-99 General appearance: normal weight, mild distress - Respiratory Respiratory exam: Present: rhonchi, wheezes (mild decreased breathing) - Cardiovascular Cardiovascular exam: Present: irregular rhythm, tachycardia. Absent: diastolic murmur, rubs - GI/Abdominal GI/Abdominal exam: Present: soft. Absent: tenderness - Extremities Exam Extremities exam: Absent: edema Result/EKG - Labs CBC & BMP: 08/07/16 04:55 08/07/16 04:55 Labs: Laboratory Results - last 24 hr 08/06/16 08/06/16 08/07/16 15:58 19:50 04:55 WBC 12.1 H RBC 3.59 L Hgb 11.0 L Hct 32.2 L MCV 89.7 MCH 31 MCHC 34.2 RDW 13.7 Plt Count 133 MPV 11.0 Neut % (Auto) 95.7 H Lymph % (Auto) 2.1 L [place] % (Auto) 1.8 Eos % (Auto) 0.0 Baso % (Auto) 0.2 Neut # (Auto) 11.5 H Lymph # (Auto) 0.3 L [place] # (Auto) 0.2 Eos # (Auto) 0.0 Baso # (Auto) 0.0 Total Counted 100 Immature Gran % 0.2 Nucleated RBC % 0.0 Immature Gran # 0.03 Segmented Neutrophils 93 H Band Neutrophils 5 Monocytes 2 Nucleated RBCs # 0.00 Platelet Estimate Normal Hypochromasia 1+ Morphology Comment Sodium Potassium Chloride Carbon Dioxide Anion Gap BUN Creatinine GFR Calculation BUN/Creatinine Ratio Glucose POC Glucose 152 H 147 H Calculated Osmolality Calcium Magnesium 08/07/16 08/07/16 08/07/16 04:55 07:42 11:19 WBC RBC Hgb Hct MCV MCH MCHC RDW Plt Count MPV Neut % (Auto) Lymph % (Auto) [place] % (Auto) Eos % (Auto) Baso % (Auto) Neut # (Auto) Lymph # (Auto) [place] # (Auto) Eos # (Auto) Baso # (Auto) Total Counted Immature Gran % Nucleated RBC % Immature Gran # Segmented Neutrophils Band Neutrophils Monocytes Nucleated RBCs # Platelet Estimate Hypochromasia Morphology Comment Sodium 136 Potassium 3.9 Chloride 102 Carbon Dioxide 22 Anion Gap 15.9 H BUN 51 H Creatinine 1.60 H GFR Calculation 46 BUN/Creatinine Ratio 31.00 H Glucose 125 H POC Glucose 169 H 219 H Calculated Osmolality 286.0 Calcium 7.8 L Magnesium 2.5 H Specialty Discharge - Follow Up or Referrals
[2016-08-07] MEDS ORDERED: METOPROLOL SUCCINATE XL 50 MG TABLET PO SCH (14:00)
[2016-08-07] MEDS: AMIODARONE 200 MG TABLET PO SCH ×2 (16:14→21:08)
[2016-08-07] MEDS: METOPROLOL SUCCINATE XL 25 MG TABLET PO SCH ×2 (16:14→21:08)
[2016-08-07] MEDS: LEVOFLOXACIN INJ 500 MG in PREMIX 1 EACH IV SCH (17:33)
[2016-08-07] MEDS: cefTRIAXone 1,000 MG in SODIUM CHLORIDE 0.9% 100 ML IV SCH (17:34)
[2016-08-07] MEDS: ZOLPIDEM 5 MG PO SCH (21:09)
[2016-08-08] MEDS: guaiFENesin/CODEINE 5 ML LIQUID PO PRN ×3 (02:06→14:33)
[2016-08-08] MEDS: LORazepam 1 MG TABLET PO PRN ×3 (02:51→21:03)
[2016-08-08] MEDS: ALBUTEROL/IPRATROPIUM 3 ML NEB RESP TX SCH ×6 (03:35→23:56)
[2016-08-08 04:25] LABS: Basophils % 0.1 % (0.0-0.8); Hematocrit 31.7 VOL% (42.0-52.0); Hemoglobin 10.9 GM/DL (14.0-18.0); Immature Granulocytes % 0.6 %; Lymphocytes # 0.3 10*3/uL (1.4-4.0); Lymphocytes % 1.6 % (21.2-54.2); Mean Corpuscular HGB Conc 34.4 GM/DL (32-36); Mean Corpuscular Hemoglobin 31 PG (27-34); Mean Platelet Volume 11.1 FL (9.6-12.0); Monocytes # 0.6 10*3/uL (0.11-0.8); Monocytes % 3.8 % (1.7-12.7); Neutrophils # 14.7 10*3/uL (1.4-7.4); Neutrophils % 93.9 % (38.7-73.9); Platelet Count 155 T/CUMM (130-400); Red Blood Count 3.56 MC/CUMM (3.8-5.5); White Blood Count 15.6 T/CUMM (4-12)
[2016-08-08 05:22] LABS: Band Neutrophils 4 % (0-10); Lymphocytes 4 % (20-55); Segmented Neutrophils 90 % (50-85); Total Cells Counted 100
[2016-08-08 05:24] LABS: Calcium 7.7 MG/DL (8.5-10.1); Magnesium 2.7 MG/DL (1.8-2.4); Osmolality,Calculated 293.7 MOS/KG (273-304); Potassium 3.8 MMOL/L (3.5-5.1)
[2016-08-08 05:27] LABS: Platelet Estimate Adequate
[2016-08-08 05:35] LABS: Troponin I Only 0.067 NG/ML (0.00-0.045)
[2016-08-08] MEDS: methylPREDNISolone SOD SUC 40 MG/1 ML VIAL IV SCH ×3 (06:27→21:01)
[2016-08-08] MEDS: CLOPIDOGREL 75 MG TABLET PO SCH (08:34)
[2016-08-08] MEDS: AMIODARONE 200 MG TABLET PO SCH ×3 (08:34→20:53)
[2016-08-08] MEDS: METOPROLOL SUCCINATE XL 25 MG TABLET PO SCH (08:34)
[2016-08-08] MEDS: BUTALBITAL/ACETAMIN/CAFFEINE 50-325-40 MG TABLET PO SCH ×2 (08:34→22:04)
[2016-08-08] MEDS: PANTOPRAZOLE 40 MG TABLET PO SCH ×2 (08:34→21:03)
[2016-08-08] MEDS: POLYETHYLENE GLYCOL POWDER 17 GM PACK PO SCH (08:34)
[2016-08-08] MEDS: DABIGATRAN 75 MG CAPSULE PO SCH ×2 (08:35→21:04)
[2016-08-08] MEDS: BUDESONIDE/FORMOTEROL 160-4.5 INHALER 6 GM INH SCH ×2 (08:35→21:06)
[2016-08-08] MEDS: amLODIPine 10 MG TABLET PO SCH (08:35)
[2016-08-08] MEDS: ASPIRIN EC 81 MG TABLET PO SCH (08:35)
[2016-08-08] MEDS ORDERED: MAGNESIUM HYDROXIDE SUSP 30 ML UDCUP PO ONE (09:44)
[2016-08-08] MEDS ORDERED: MAGNESIUM HYDROXIDE SUSP 30 ML UDCUP PO PRN (09:45)
--- NOTE | 2016-08-08 10:04 | Cardiology Progress Note ---
Assessment and Plan (1) Pleuritic chest pain Status: Acute Assessment and plan: 1. 81 year-old WM well known to me with remote history of strokes, significant CAD with CABG in 2001 (grafts closed) status post left main stent in 2008, and subsequent restenting distal left main and LAD August 2015 with good result and resolution of symptoms. He now presented with fever, increasing dyspnea with significant wheezing, left-sided infiltrate suggesting pneumonia (leukocytosis on admission) 2. Acute renal failure, possibly related to diuresis? Holding ARB and diuretics for now. 3. Previously normal LV systolic function; will check echocardiogram 4. Trivial troponin elevation is likely due to his illness (0.1), and not ACS 5. Elevated BNP noted August 07 update: 1. Clinically diagonals improve modestly although he developed new atrial fibrillation with RVR yesterday afternoon (started CPAP last year but is been less compliant in recent weeks; this may be a contributor) 2. Left-sided pneumonia 3. Normal LV systolic function and an echocardiogram 4. Add low-dose amiodarone and Toprol to control rate (improved from the 140s to the 120 range today) 5. Creatinine is improved to 1.6 from 2.2 August 08 uptake: 1. Clinically Thomas seems to be slowly improving, but still has some wheezing bilaterally that persists 2. Continue to have atrial fibrillation with intermittent mild RVR; continue amiodarone, with low-dose Toprol 3. Creatinine is now normalized 4. Normal ejection fraction 5. Restart ARB 6. Cardioversion could be considered as he is on anticoagulation chronically, however at this point, I prefer not to sedate him to avoid complications from that. Current Visit: Yes (2) Pneumonia Status: Acute Current Visit: Yes Qualifiers: Pneumonia type: due to Pneumococcus Laterality: left Lung location: upper lobe of lung Qualified Code(s): J13 - Pneumonia due to Streptococcus pneumoniae (3) Renal insufficiency Status: Acute Current Visit: Yes (4) Dyslipidemia Status: Acute Current Visit: No Cardiology - PN: Subj Interval history: Thomas is feeling a bit better overall, but his reports he gets a little confused at times. This is happening the past with hospitalizations. He is not having any chest discomfort palpitations or dizziness. He still has cough and shortness of breath. He seemed to rest comfortably. Exam (Progress Note) - Constitutional Vitals: Period Temp Pulse Resp BP Sys/Chen Pulse Ox Last 24 Hr 96.8 F-98.0 F 80-125 16-28 108-150/57-74 83-97 General appearance: normal weight, no acute distress - Head Head exam: Present: normal inspection, normocephalic, atraumatic - Respiratory Respiratory exam: Present: rhonchi, wheezes - Cardiovascular Cardiovascular exam: Present: irregular rhythm, tachycardia. Absent: diastolic murmur, rubs - GI/Abdominal GI/Abdominal exam: Present: soft. Absent: tenderness - Extremities Exam Extremities exam: Absent: edema Result/EKG - Labs CBC & BMP: 08/08/16 03:47 08/08/16 03:47 Labs: Laboratory Results - last 24 hr 08/07/16 08/07/16 08/07/16 11:19 15:39 19:22 WBC RBC Hgb Hct MCV MCH MCHC RDW Plt Count MPV Neut % (Auto) Lymph % (Auto) [place] % (Auto) Eos % (Auto) Baso % (Auto) Neut # (Auto) Lymph # (Auto) [place] # (Auto) Eos # (Auto) Baso # (Auto) Total Counted Immature Gran % Nucleated RBC % Immature Gran # Segmented Neutrophils Band Neutrophils Lymphocytes Monocytes Nucleated RBCs # Platelet Estimate Morphology Comment Sodium Potassium Chloride Carbon Dioxide Anion Gap BUN Creatinine GFR Calculation BUN/Creatinine Ratio Glucose POC Glucose 219 H 172 H 213 H Calculated Osmolality Calcium Magnesium Total Creatine Kinase Troponin I 08/08/16 08/08/16 08/08/16 03:47 03:47 07:16 WBC 15.6 H RBC 3.56 L Hgb 10.9 L Hct 31.7 L MCV 89.0 MCH 31 MCHC 34.4 RDW 14.0 Plt Count 155 MPV 11.1 Neut % (Auto) 93.9 H Lymph % (Auto) 1.6 L [place] % (Auto) 3.8 Eos % (Auto) 0.0 Baso % (Auto) 0.1 Neut # (Auto) 14.7 H Lymph # (Auto) 0.3 L [place] # (Auto) 0.6 Eos # (Auto) 0.0 Baso # (Auto) 0.0 Total Counted 100 Immature Gran % 0.6 Nucleated RBC % 0.0 Immature Gran # 0.10 Segmented Neutrophils 90 H Band Neutrophils 4 Lymphocytes 4 L Monocytes 2 Nucleated RBCs # 0.00 Platelet Estimate Adequate Morphology Comment Sodium 138 Potassium 3.8 Chloride 105 Carbon Dioxide 21 Anion Gap 15.8 H BUN 51 H Creatinine 1.30 GFR Calculation 59 BUN/Creatinine Ratio 39.00 H Glucose 192 H POC Glucose 166 H Calculated Osmolality 293.7 Calcium 7.7 L Magnesium 2.7 H Total Creatine Kinase 294 Troponin I 0.067 H D Specialty Discharge - Follow Up or Referrals
--- NOTE | 2016-08-08 12:40 | Hospitalist Progress Note ---
Assessment and Plan (1) Pneumonia Status: Acute Assessment and plan: The patient is admitted to the hospital with left upper lobe pneumonia superimposed upon COPD exacerbation and causing the patient to have chest pain due to pleurisy. The patient continues on pneumonia pathway with IV antibiotics including Levaquin and Rocephin. The patient will have IV steroid and inhaled beta agonist nebulized breathing medicines. The patient will continue treatment of pneumonia through the weekend and anticipate Dr. Real will assume his care on Wednesday. I am going to continue some Ativan for anxiety today and some Robitussin-AC to help with his cough. I am going to continue his Protonix to twice daily to reduce reflux symptoms. Current Visit: Yes Qualifiers: Pneumonia type: due to Pneumococcus Laterality: left Lung location: upper lobe of lung Qualified Code(s): J13 - Pneumonia due to Streptococcus pneumoniae (2) COPD exacerbation Status: Acute Current Visit: Yes (3) Coronary artery disease Status: Acute Current Visit: No Hospitalist: Subjective Interval history: The patient has less shortness of breath than yesterday. The patient does not appear tremulous. The patient had some delirium during the night after taking Ambien due to complaints of insomnia. The patient has no angina or palpitation today. He remains in atrial fibrillation. Exam - Constitutional Vitals: Period Temp Pulse Resp BP Sys/Chen Pulse Ox Last 24 Hr 96.8 F-98.0 F 78-125 16-28 108-150/57-74 83-97 Exam: Constitutional System: Minimal distress. No tremulousness. Head: Normocephalic, atraumatic. Ears, Nose and Throat System: No evidence of Otitis or Mastoiditis. No epistaxis or discharge Eyes System: Pupils equal, round, and reactive. Extraocular muscles intact. Neck: Supple, without adenopathy, No jugular venous distention. No thyromegaly , neck mass, or prior surgery apparent. Respiratory System: Chest minimal upper airway congestion to auscultation. Cardiovascular System: Heart with regular rate and rhythm. No murmur. Status post bypass grafting with healed thoracotomy GI System: Abdomen soft, nontender. Normo active bowel sounds present. Musculoskeletal System: limbs with no pedal edema. Full distal pulses. Neurological System: No discernable sensory deficit. No aphasia Psychiatric System: Conversation is rational Results - Labs CBC & BMP: 08/08/16 03:47 08/08/16 03:47 Lab Results: I have reviewed the past 24 hour labs Specialty Discharge - Follow Up or Referrals
[2016-08-08] MEDS ORDERED: DIGOXIN 0.125 MG TABLET PO SCH (13:00)
--- NOTE | 2016-08-08 13:05 | XRay Report ---
History: Pneumonia Date: 08/08/2016 Study: Chest x-ray AP portable Comparison exam: August 06, 2016 There is continued patchy and hazy infiltrate bilaterally. The left lung is similar to the previous study. The right upper lung infiltrate is increased. The cardiomediastinal silhouette is unchanged. There is no layering pleural effusion. There is no pneumothorax. Osseous structures are similar. Impression: Continued bilateral infiltrate compatible with pneumonia. The right lung infiltrate is worsened PROCEDURE INTERPRETED AT [facility] DEPARTMENT OF RADIOLOGY Final Report Signed by: Dr. Bhargavi Abraham
[2016-08-08] MEDS: LEVOFLOXACIN INJ 500 MG in PREMIX 1 EACH IV SCH (17:08)
--- NOTE | 2016-08-08 17:50 | Pulmonology Progress Note ---
Pulmonary - PN: Subj Interval history: 81-year-old male with CAD and COPD admitted with left-sided chest pleurisy and left upper lobe pneumonia. Overnight patient had no acute events. This morning patient states he continues to have cough and congestion and difficulty breathing limiting his mobility. He does not feel these are significantly worsened from yesterday. No new acute issues. Exam (Progress Note) - Constitutional Vitals: Period Temp Pulse Resp BP Sys/Chen Pulse Ox Last 24 Hr 96.8 F-97.9 F 71-125 18-28 108-150/57-74 85-97 General appearance: normal weight, mild distress - Head Head exam: Present: normal inspection - Eye Eye exam: Present: EOMI Pupils: Present: [place]EVIL[place] - ENT ENT exam: Present: normal exam - Neck Neck exam: Present: normal inspection - Respiratory Respiratory exam: Present: prolonged expiratory phase, rhonchi (Bilaterally), wheezes (Scattered expiratory wheezes bilaterally) - Cardiovascular Cardiovascular exam: Present: irregular rhythm - GI/Abdominal GI/Abdominal exam: Present: normal bowel sounds, soft - Extremities Exam Extremities exam: Absent: edema - Neurological Exam Neurological exam: Present: alert, oriented X3, CN II-XII intact - Psychiatric Psychiatric exam: Present: depressed - Skin Skin exam: Present: warm, dry Results - Labs CBC & BMP: 08/08/16 03:47 08/08/16 03:47 - Diagnostic Findings Procedure: Chest x-ray: image reviewed by me (Improved left upper lobe opacification from admission) Assessment and Plan (1) Pneumonia Status: Acute Assessment and plan: Slowly improving on current therapy. Chest x-ray improved. Continue current therapies. Current Visit: Yes Qualifiers: Pneumonia type: due to Pneumococcus Laterality: left Lung location: upper lobe of lung Qualified Code(s): J13 - Pneumonia due to Streptococcus pneumoniae (2) COPD exacerbation Status: Acute Assessment and plan: Also slowly improving. Continue current therapies. Will increase airway clearance therapies with addition of CPT/Acapella. Current Visit: Yes (3) Renal insufficiency Status: Acute Assessment and plan: Creatinine improved this morning. BUN increased, likely due to steroid therapy. Continue to monitor urine output and creatinine Current Visit: Yes Specialty Discharge - Follow Up or Referrals
[2016-08-08] MEDS: cefTRIAXone 1,000 MG in SODIUM CHLORIDE 0.9% 100 ML IV SCH (18:23)
[2016-08-08] MEDS: MORPHINE 2 MG/1 ML SYRINGE IV PRN ×2 (20:10→20:14)
[2016-08-08] MEDS: VALSARTAN 80 MG TABLET PO SCH (21:02)
[2016-08-08] MEDS: METOPROLOL SUCCINATE XL 50 MG TABLET PO SCH (21:03)
[2016-08-08 21:06] LABS: ABG Base Excess -0.8 MMOL/L (-2.5-2.5); ABG HCO3 21.4 MMOL/L (20-26); ABG PCO2 28.7 MM HG (35-48); ABG PH 7.491 (7.35-7.45); ABG PO2 55.1 MM HG (80-95); ABG TCO2 22.3 MMOL/L (23-27); Allen Test Positive; Pt O2 Delivery Device Simple Mask
--- NOTE | 2016-08-08 21:46 | XRay Report ---
History: Shortness of breath Date: 08/08/2016 at 8:49 PM Study: Chest x-ray single view portable Comparison exam: 08/08/2016 at 6:39 AM There is continued hazy and patchy infiltrate bilaterally, scattered throughout the left lung and also in the right mid to upper lung. This is grossly unchanged. There is no pleural effusion or pneumothorax. The cardiomediastinal silhouette is unchanged. The osseous structures are unchanged. Impression: Continued bilateral pneumonia without significant interval change PROCEDURE INTERPRETED AT [facility] DEPARTMENT OF RADIOLOGY Final Report Signed by: Dr. Bhargavi Abraham
[2016-08-08] MEDS: ZOLPIDEM 5 MG PO SCH (22:04)
[2016-08-08] MEDS ORDERED: VANCOMYCIN INJ 1,000 MG in SODIUM CHLORIDE 0.9% 250 ML IV ONE (22:08)
[2016-08-09] MEDS: guaiFENesin/CODEINE 5 ML LIQUID PO PRN ×2 (00:20→06:13)
[2016-08-09] MEDS: MORPHINE 2 MG/1 ML SYRINGE IV PRN (00:25)
[2016-08-09] MEDS: ALBUTEROL/IPRATROPIUM 3 ML NEB RESP TX SCH ×5 (03:36→19:13)
[2016-08-09 05:33] LABS: Basophils % 0.2 % (0.0-0.8); Hematocrit 33.9 VOL% (42.0-52.0); Hemoglobin 11.5 GM/DL (14.0-18.0); Immature Granulocytes % 1.3 %; Immature Granulocytes Absolute 0.25 #; Lymphocytes # 0.7 10*3/uL (1.4-4.0); Lymphocytes % 3.9 % (21.2-54.2); Mean Corpuscular HGB Conc 33.9 GM/DL (32-36); Mean Corpuscular Hemoglobin 31 PG (27-34); Mean Corpuscular Volume 90.4 FL (87-102); Mean Platelet Volume 10.8 FL (9.6-12.0); Monocytes # 0.9 10*3/uL (0.11-0.8); Monocytes % 4.9 % (1.7-12.7); NRBC # 0.02 10*3/uL; Neutrophils # 16.8 10*3/uL (1.4-7.4); Neutrophils % 89.7 % (38.7-73.9); Platelet Count 168 T/CUMM (130-400); Red Blood Count 3.75 MC/CUMM (3.8-5.5); Red Cell Distribution Width 14.4 % (9.3-17.3); White Blood Count 18.7 T/CUMM (4-12)
[2016-08-09] MEDS: methylPREDNISolone SOD SUC 40 MG/1 ML VIAL IV SCH ×3 (06:06→22:07)
[2016-08-09 06:41] LABS: Calcium 7.7 MG/DL (8.5-10.1); Magnesium 3.1 MG/DL (1.8-2.4); Osmolality,Calculated 290.8 MOS/KG (273-304); Potassium 4.4 MMOL/L (3.5-5.1)
[2016-08-09 07:10] LABS: Lymphocytes 3 % (20-55); Segmented Neutrophils 94 % (50-85)
[2016-08-09 07:11] LABS: Burr Cells 1+; Platelet Estimate Normal; Total Cells Counted 100
[2016-08-09] MEDS ORDERED: SUCCINYLCHOLINE 200 MG/10 ML VIAL ONE (07:15)
[2016-08-09] MEDS ORDERED: PROPOFOL 1,000 MG/100 ML BOTTLE IV ONE (07:15)
--- NOTE | 2016-08-09 07:34 | Cardiology Progress Note ---
Assessment and Plan (1) Pleuritic chest pain Status: Acute Assessment and plan: 1. 81 year-old WM well known to me with remote history of strokes, significant CAD with CABG in 2001 (grafts closed) status post left main stent in 2008, and subsequent restenting distal left main and LAD August 2015 with good result and resolution of symptoms. He now presented with fever, increasing dyspnea with significant wheezing, left-sided infiltrate suggesting pneumonia (leukocytosis on admission) 2. Acute renal failure, possibly related to diuresis? Holding ARB and diuretics for now. 3. Previously normal LV systolic function; will check echocardiogram 4. Trivial troponin elevation is likely due to his illness (0.1), and not ACS 5. Elevated BNP noted August 07 update: 1. Clinically diagonals improve modestly although he developed new atrial fibrillation with RVR yesterday afternoon (started CPAP last year but is been less compliant in recent weeks; this may be a contributor) 2. Left-sided pneumonia 3. Normal LV systolic function and an echocardiogram 4. Add low-dose amiodarone and Toprol to control rate (improved from the 140s to the 120 range today) 5. Creatinine is improved to 1.6 from 2.2 August 08 uptake: 1. Clinically Thomas seems to be slowly improving, but still has some wheezing bilaterally that persists 2. Continue to have atrial fibrillation with intermittent mild RVR; continue amiodarone, with low-dose Toprol 3. Creatinine is now normalized 4. Normal ejection fraction 5. Restart ARB 6. Cardioversion could be considered as he is on anticoagulation chronically, however at this point, I prefer not to sedate him to avoid complications from that. August 09 update: 1. Bilateral pneumonia with increasing respiratory embarrassment; 100% Nonrebreather and Is Being Considered for Intubation Later This Morning 2. Atrial Fibrillation Persisted, but Rate Is Controlled; If He Stays Rhythm, Cardioversion Could Be Considered a Later Time 3. Normal LV systolic function noted this hospitalization with EF 55% 4. No new recommendations Current Visit: Yes (2) Pneumonia Status: Acute Current Visit: Yes Qualifiers: Pneumonia type: due to Pneumococcus Laterality: left Lung location: upper lobe of lung Qualified Code(s): J13 - Pneumonia due to Streptococcus pneumoniae (3) Renal insufficiency Status: Acute Current Visit: Yes (4) Dyslipidemia Status: Acute Current Visit: No Cardiology - PN: Subj Interval history: Thomas became short of breath with drop in his oxygen saturation which required 100% oxygen nonrebreather and is moved. Unit for closer care. He is being considered for intubation. Shortness of breath is really his COMPLAINT. He was given some Ativan for anxiety which is helped. Exam (Progress Note) - Constitutional Vitals: Period Temp Pulse Resp BP Sys/Chen Pulse Ox Last 24 Hr 96.8 F-98.7 F 71-125 18-35 108-162/58-87 78-92 General appearance: normal weight, mild distress - Head Head exam: Present: normal inspection, normocephalic, atraumatic - Respiratory Respiratory exam: Present: rhonchi, wheezes - Cardiovascular Cardiovascular exam: Present: irregular rhythm. Absent: diastolic murmur - GI/Abdominal GI/Abdominal exam: Present: soft. Absent: tenderness - Extremities Exam Extremities exam: Present: edema - Neurological Exam Neurological exam: Present: alert, oriented X3 Result/EKG - Labs CBC & BMP: 08/09/16 05:20 08/09/16 05:20 Labs: Laboratory Results - last 24 hr 08/08/16 08/08/16 08/08/16 07:16 11:30 15:22 WBC RBC Hgb Hct MCV MCH MCHC RDW Plt Count MPV Neut % (Auto) Lymph % (Auto) Scott % (Auto) Eos % (Auto) Baso % (Auto) Neut # (Auto) Lymph # (Auto) Scott # (Auto) Eos # (Auto) Baso # (Auto) Total Counted Immature Gran % Nucleated RBC % Immature Gran # Segmented Neutrophils Lymphocytes Monocytes Nucleated RBCs # Platelet Estimate Anderson Cells ABG pH ABG pCO2 ABG pO2 ABG HCO3 ABG Total CO2 ABG O2 Saturation ABG Base Excess FiO2 Sodium Potassium Chloride Carbon Dioxide Anion Gap BUN Creatinine GFR Calculation BUN/Creatinine Ratio Glucose POC Glucose 166 H 219 H 211 H Calculated Osmolality Calcium Magnesium 08/08/16 08/08/16 08/09/16 20:30 20:54 05:20 WBC 18.7 H RBC 3.75 L Hgb 11.5 L Hct 33.9 L MCV 90.4 MCH 31 MCHC 33.9 RDW 14.4 Plt Count 168 MPV 10.8 Neut % (Auto) 89.7 H Lymph % (Auto) 3.9 L Scott % (Auto) 4.9 Eos % (Auto) 0.0 Baso % (Auto) 0.2 Neut # (Auto) 16.8 H Lymph # (Auto) 0.7 L Scott # (Auto) 0.9 H Eos # (Auto) 0.0 Baso # (Auto) 0.0 Total Counted 100 Immature Gran % 1.3 Nucleated RBC % 0.1 Immature Gran # 0.25 Segmented Neutrophils 94 H Lymphocytes 3 L Monocytes 3 Nucleated RBCs # 0.02 Platelet Estimate Normal Nicole Cells 1+ ABG pH 7.491 H ABG pCO2 28.7 L ABG pO2 55.1 L ABG HCO3 21.4 ABG Total CO2 22.3 L ABG O2 Saturation 88.0 L ABG Base Excess -0.8 FiO2 60.00 Sodium Potassium Chloride Carbon Dioxide Anion Gap BUN Creatinine GFR Calculation BUN/Creatinine Ratio Glucose POC Glucose 159 H Calculated Osmolality Calcium Magnesium 08/09/16 05:20 WBC RBC Hgb Hct MCV MCH MCHC RDW Plt Count MPV Neut % (Auto) Lymph % (Auto) Scott % (Auto) Eos % (Auto) Baso % (Auto) Neut # (Auto) Lymph # (Auto) Scott # (Auto) Eos # (Auto) Baso # (Auto) Total Counted Immature Gran % Nucleated RBC % Immature Gran # Segmented Neutrophils Lymphocytes Monocytes Nucleated RBCs # Platelet Estimate Anderson Cells ABG pH ABG pCO2 ABG pO2 ABG HCO3 ABG Total CO2 ABG O2 Saturation ABG Base Excess FiO2 Sodium 137 Potassium 4.4 Chloride 105 Carbon Dioxide 23 Anion Gap 13.4 BUN 48 H Creatinine 1.20 GFR Calculation 65 BUN/Creatinine Ratio 40.00 H Glucose 189 H POC Glucose Calculated Osmolality 290.8 Calcium 7.7 L Magnesium 3.1 H Specialty Discharge - Follow Up or Referrals
--- NOTE | 2016-08-09 07:54 | EKG Report ---
Stationary ECG Study [facility] Test Date: 08/09/2016 7:36:35 AM Pat Name: RENUKA AVENDANO Department: Room: 109 Gender: M Search Lead: LALIT : 1935 Requested by: Phil Mejia Order Number: [id number] Reading MD: RUFINO VAZQUEZ Intervals [place] Rate: 85 P: 999 NC: 0 QRS: 64 QRSD: 102 T: 202 QT: 351 QTc: 393 Interpretive Statements ATRIAL FIBRILLATION WITH ABERRANT CONDUCTION OR VENTRICULAR PREMATURE COMPLEX ST DEVIATION AND MODERATE T-WAVE ABNORMALITY, CONSIDER ANTEROLATERAL ISCHEMIA Electronically Signed On 08-13-16 09:25:49 CDT by RUFINO VAZQUEZ [email or web address]
--- NOTE | 2016-08-09 09:02 | Hospitalist Progress Note ---
Assessment and Plan (1) Pneumonia Status: Acute Assessment and plan: The patient is admitted to the hospital with bilateral upper lobe pneumonia superimposed upon COPD exacerbation and causing the patient to have chest pain due to pleurisy. The patient continues on pneumonia pathway with IV antibiotics including Levaquin and Rocephin. The patient will have IV steroid and inhaled beta agonist nebulized breathing medicines. The patient will continue treatment of pneumonia through the weekend and anticipate Dr. Real will assume his care on Wednesday. I am going to continue some Ativan for anxiety today and some Robitussin-AC to help with his cough. I am going to continue his Protonix to twice daily to reduce reflux symptoms. The patient is now mechanically ventilated we will continue treatment for pneumonia. I coordinated care with Dr. Frias who is treating the patient's atrial fibrillation. Current Visit: Yes Qualifiers: Pneumonia type: due to Pneumococcus Laterality: left Lung location: upper lobe of lung Qualified Code(s): J13 - Pneumonia due to Streptococcus pneumoniae (2) COPD exacerbation Status: Acute Current Visit: Yes (3) Coronary artery disease Status: Acute Current Visit: No Hospitalist: Subjective Interval history: The patient had progressive hypoxia through the night despite appropriate repositioning, nebulized breathing therapies, and diuresis. The patient's oxygen saturation is insufficient this morning. After obtaining informed consent from the patient's the patient was intubated. Critical care time 75 minutes Procedure performed oral endotracheal intubation and initiation of mechanical ventilation: The patient was repositioned in bed and the procedure was explained. The patient gave verbal consent. When the team had been assembled and prepared, the patient was hyperventilated with oxygen via bag valve mask by the respiratory therapist. The patient's nerves administered 5 cc of Diprivan followed by 50 mg succinylcholine. The patient had appropriate sedation and relaxation. Webster scope was used to place a 7.5 endotracheal tube through the vocal cords. Placement was confirmed by color change cube and mechanical ventilation was established. Chest x-ray was obtained. The chest x-ray reveals increasing infiltrates in the right upper and left upper lung price. The patient's endotracheal tube is appropriately placed. No evidence of pneumothorax. Exam - Constitutional Vitals: Period Temp Pulse Resp BP Sys/Chen Pulse Ox Last 24 Hr 96.9 F-98.7 F 71-125 18-35 108-162/58-87 78-92 Exam: Constitutional System: No l distress. No tremulousness. The patient is now appropriately sedated, orally intubated, and mechanically ventilated. Head: Normocephalic, atraumatic. Ears, Nose and Throat System: No evidence of Otitis or Mastoiditis. No epistaxis or discharge Eyes System: Pupils equal, round, and reactive. Extraocular muscles intact. Neck: Supple, without adenopathy, No jugular venous distention. No thyromegaly , neck mass, or prior surgery apparent. Respiratory System: Chest minimal upper airway congestion to auscultation, with rhonchi bilateral upper lobes anteriorly. Cardiovascular System: Heart with irregular rate and rhythm consistent with atrial fibrillation. No murmur. Status post bypass grafting with healed thoracotomy GI System: Abdomen soft, nontender. Normo active bowel sounds present. Musculoskeletal System: limbs with no pedal edema. Full distal pulses. Neurological System: No discernable sensory deficit. No aphasia prior to intubation Psychiatric System: Conversation is rational on examination prior to intubation Results - Labs CBC & BMP: 08/09/16 05:20 08/09/16 05:20 Lab Results: I have reviewed the past 24 hour labs - Diagnostic Findings Procedure: Chest x-ray: image reviewed by me, report reviewed by me (Increasing infiltrates and now intubated) Specialty Discharge - Follow Up or Referrals
[2016-08-09] MEDS ORDERED: SODIUM CHLORIDE 0.9% 250 ML IV ONE (09:03)
--- NOTE | 2016-08-09 09:06 | XRay Report ---
History: Endotracheal tube placement. Pneumonia Date: 08/09/2016 at 8:34 AM Study: Chest x-ray AP portable Comparison exam: 08/08/2016 The endotracheal tube is well-positioned. The cardiomediastinal silhouette is unchanged. There is continued patchy and hazy pneumonia throughout the left lung and also in the right mid upper lung, mildly increased. There is no increasing pleural effusion. There is no pneumothorax. Osseous structures are unchanged. Impression: The endotracheal tube is well-positioned. Continued bilateral pneumonia, mildly worsened PROCEDURE INTERPRETED AT [facility] DEPARTMENT OF RADIOLOGY Final Report Signed by: Dr. Bhargavi Abraham
[2016-08-09] MEDS ORDERED: VALSARTAN 80 MG TABLET PER TUBE SCH (09:09)
[2016-08-09 09:20] LABS: ABG Base Excess -4.2 MMOL/L (-2.5-2.5); ABG HCO3 20.9 MMOL/L (20-26); ABG Oxygen Saturation 93.9 % (95-100); ABG PH 7.285 (7.35-7.45); ABG TCO2 20.6 MMOL/L (23-27)
[2016-08-09] MEDS: PROPOFOL 1,000 MG/100 ML BOTTLE IV SCH (09:30)
[2016-08-09] MEDS ORDERED: VECURONIUM 10 MG VIAL IV PRN (09:36)
[2016-08-09] MEDS: LORazepam 2 MG/1 ML VIAL IV PRN ×2 (09:40→10:55)
[2016-08-09] MEDS ORDERED: fentaNYL INJ 1,250 MCG in SODIUM CHLORIDE 0.9% 225 ML IV SCH (10:30)
--- NOTE | 2016-08-09 10:31 | Pulmonology Progress Note ---
Pulmonary - PN: Subj Interval history: 81-year-old male with CAD and COPD admitted with respiratory distress from pneumonia with slow improvement until last night. Overnight patient had significant worsening in hypoxic respiratory distress requiring intubation this morning. Since intubation patient has been agitated requiring propofol and Ativan but oxygenation is significantly improved. Chest x-ray this morning shows significant worsening in bilateral diffuse patchy opacities concerning for development of ARDS. Exam (Progress Note) - Constitutional Vitals: Period Temp Pulse Resp BP Sys/Chen Pulse Ox Last 24 Hr 96.9 F-98.7 F 71-125 14-35 108-162/58-87 78-92 General appearance: normal weight - Head Head exam: Present: normal inspection - Eye Pupils: Present: NEVILLE - Respiratory Respiratory exam: Present: prolonged expiratory phase, rhonchi (Bilaterally). Absent: accessory muscle use - Cardiovascular Cardiovascular exam: Present: regular rate and rhythm - GI/Abdominal GI/Abdominal exam: Present: normal bowel sounds, soft. Absent: tenderness - Extremities Exam Extremities exam: Present: normal inspection - Neurological Exam Neurological exam: Present: other (sedated on the ventilator) - Skin Skin exam: Present: warm, dry Results - Labs CBC & BMP: 08/09/16 05:20 08/09/16 05:20 - Diagnostic Findings Procedure: Chest x-ray: image reviewed by me (Worsened bilateral diffuse patchy infiltrates upper lobes greater than lower lobes.) Assessment and Plan (1) Acute respiratory failure with hypoxemia Status: Acute Assessment and plan: Significant worsening in respiratory status overnight requiring intubation. Chest x-ray this morning shows significant worsening concerning for development of ARDS. Will broaden antibiotics today to meropenem and vancomycin and obtain repeat blood cultures and sputum cultures. Continue mechanical ventilation with adjusted vent settings of tidal volume 6 ml/kg, FiO2 titrated to maintain sats greater than 90%, PEEP of 5 for now though he may require higher PEEP depending on oxygenation. Fentanyl and propofol for sedation/analgesia. PPI and DVT prophylaxis. Chest x-ray and ABG every morning. Current Visit: Yes (2) Pneumonia Status: Acute Assessment and plan: As above we will broaden antibiotics today to meropenem and vancomycin and repeat cultures. If significant worsening, patient may require bronchoscopy. Chest x-ray and ABG every morning. Current Visit: Yes Qualifiers: Pneumonia type: due to Pneumococcus Laterality: left Lung location: upper lobe of lung Qualified Code(s): J13 - Pneumonia due to Streptococcus pneumoniae (3) COPD exacerbation Status: Acute Assessment and plan: Continue steroids, antibiotics and bronchodilator therapy. Current Visit: Yes (4) Renal insufficiency Status: Acute Assessment and plan: Creatinine improved this morning. BUN increased, likely due to steroid therapy. Continue to monitor urine output and creatinine Current Visit: Yes Specialty Discharge - Follow Up or Referrals
[2016-08-09] MEDS: PANTOPRAZOLE 40 MG VIAL IV SCH ×2 (10:39→22:01)
[2016-08-09] MEDS: fentaNYL INJ 1,250 MCG in SODIUM CHLORIDE 0.9% 225 ML IV SCH (11:15)
[2016-08-09] MEDS: MEROPENEM 1,000 MG in SODIUM CHLORIDE 0.9% 100 ML IV SCH ×2 (11:49→18:25)
[2016-08-09] MEDS: VANCOMYCIN INJ 1,000 MG in SODIUM CHLORIDE 0.9% 250 ML IV SCH ×2 (11:50→22:09)
[2016-08-09] MEDS: METOPROLOL SUCCINATE XL 50 MG TABLET PO SCH (12:06)
[2016-08-09] MEDS: BUDESONIDE/FORMOTEROL 160-4.5 INHALER 6 GM INH SCH (12:07)
[2016-08-09] MEDS: PANTOPRAZOLE 40 MG TABLET PO SCH (12:07)
[2016-08-09] MEDS: CLOPIDOGREL 75 MG TABLET PO SCH (12:08)
[2016-08-09] MEDS: VALSARTAN 80 MG TABLET PO SCH (12:08)
[2016-08-09] MEDS: BUTALBITAL/ACETAMIN/CAFFEINE 50-325-40 MG TABLET PO SCH (12:08)
[2016-08-09] MEDS: AMIODARONE 200 MG TABLET PO SCH (12:08)
[2016-08-09] MEDS: amLODIPine 10 MG TABLET PO SCH (12:08)
[2016-08-09 12:32] LABS: ABG Base Excess -2.7 MMOL/L (-2.5-2.5); ABG HCO3 22.2 MMOL/L (20-26); ABG Oxygen Saturation 97.7 % (95-100); ABG PCO2 37.1 MM HG (35-48); ABG TCO2 19.3 MMOL/L (23-27); Allen Test Positive; Pt O2 Delivery Device Ventilator
[2016-08-09] MEDS: METOPROLOL TARTRATE 50 MG TABLET PER TUBE SCH ×2 (15:47→23:42)
[2016-08-09] MEDS: POLYETHYLENE GLYCOL POWDER 17 GM PACK PO SCH (16:15)
[2016-08-09] MEDS: ASPIRIN EC 81 MG TABLET PO SCH (16:15)
[2016-08-09] MEDS: DABIGATRAN 75 MG CAPSULE PO SCH ×2 (16:15→21:08)
[2016-08-09] MEDS: AMIODARONE 200 MG TABLET PER TUBE SCH ×2 (16:16→22:00)
[2016-08-09] MEDS: LEVOFLOXACIN INJ 500 MG in PREMIX 1 EACH IV SCH (18:25)
[2016-08-09] MEDS: ZOLPIDEM 5 MG PO SCH (21:45)
[2016-08-09] MEDS: BUTALBITAL/ACETAMIN/CAFFEINE 50-325-40 MG TABLET PER TUBE SCH (22:19)
[2016-08-10] MEDS: ALBUTEROL/IPRATROPIUM 3 ML NEB RESP TX SCH ×6 (00:24→20:02)
[2016-08-10] MEDS: MEROPENEM 1,000 MG in SODIUM CHLORIDE 0.9% 100 ML IV SCH ×3 (03:13→18:32)
[2016-08-10 03:38] LABS: Allen Test Positive; Pt O2 Delivery Device Ventilator
[2016-08-10 03:40] LABS: ABG HCO3 20.2 MMOL/L (20-26); ABG Oxygen Saturation 96.3 % (95-100); ABG PCO2 42.3 MM HG (35-48); ABG PH 7.306 (7.35-7.45); ABG PO2 96.9 MM HG (80-95); ABG TCO2 19.1 MMOL/L (23-27)
[2016-08-10 05:08] LABS: Basophils % 0.2 % (0.0-0.8); Hematocrit 33.5 VOL% (42.0-52.0); Immature Granulocytes % 1.4 %; Immature Granulocytes Absolute 0.27 #; Lymphocytes # 0.4 10*3/uL (1.4-4.0); Mean Corpuscular HGB Conc 32.8 GM/DL (32-36); Mean Corpuscular Hemoglobin 31 PG (27-34); Mean Corpuscular Volume 92.8 FL (87-102); Monocytes # 0.6 10*3/uL (0.11-0.8); Monocytes % 3.2 % (1.7-12.7); Neutrophils # 18.2 10*3/uL (1.4-7.4); Neutrophils % 93.2 % (38.7-73.9); Platelet Count 186 T/CUMM (130-400); Red Blood Count 3.61 MC/CUMM (3.8-5.5); Red Cell Distribution Width 14.9 % (9.3-17.3); White Blood Count 19.5 T/CUMM (4-12)
[2016-08-10 05:40] LABS: Anisocytosis 1+; Band Neutrophils 1 % (0-10); Lymphocytes 3 % (20-55); Macrocytosis 1+; Metamyelocytes 1 %; Platelet Estimate Normal; Segmented Neutrophils 93 % (50-85); Total Cells Counted 100
[2016-08-10 05:50] LABS: Calcium 7.5 MG/DL (8.5-10.1); Osmolality,Calculated 302.7 MOS/KG (273-304); Potassium 5.6 MMOL/L (3.5-5.1); Prealbumin 11.8 MG/DL (20-40)
[2016-08-10] MEDS: methylPREDNISolone SOD SUC 40 MG/1 ML VIAL IV SCH ×3 (06:28→21:46)
--- NOTE | 2016-08-10 07:17 | XRay Report ---
XR chest 1V portable Indication: Pneumonia Comparison: Chest x-ray 08/09/2016 Technique: Portable AP chest was performed. Findings: Little if any change is demonstrated in the appearance of the lung parenchyma. Confluent airspace opacities bilaterally present within the upper lungs. Additionally within the mid left lung and lung base are demonstrated. Multiple tubes and medical support devices appear stable. Chest is otherwise unchanged. Impression: 1. Little change in the lung parenchyma has occurred since comparison study. 08/10/2016 7:14 AM PROCEDURE INTERPRETED AT [facility] DEPARTMENT OF RADIOLOGY Final Report Signed by: Dr. Johann Manzo
[2016-08-10] MEDS: fentaNYL INJ 1,250 MCG in SODIUM CHLORIDE 0.9% 225 ML IV SCH ×2 (07:27→18:38)
--- NOTE | 2016-08-10 08:30 | Pulmonology Progress Note ---
Pulmonary - PN: Subj Interval history: Patient is an 81-year-old that has coronary artery disease and COPD. He came in with left-sided chest pleurisy and shortness of breath and has a left upper lobe pneumonia. His cultures have grown pneumococcal pneumonia. Over the weekend he had more respiratory distress and had to be intubated. He did develop more right upper lobe pneumonia also. His lung compliance is stable. He is still requiring a high FiO2. He has had trouble clearing his secretions and will plan a therapeutic bronchoscopy. Exam (Progress Note) - Constitutional Vitals: Period Temp Pulse Resp BP Sys/Chen Pulse Ox Last 24 Hr 97.0 F-97.8 F 8-94 14-29 91-131/46-67 88-100 Exam: General appearance: no distress (The patient is sedated on the ventilator now.) - Head Head exam: Present: normal inspection, normocephalic - Eye Eye exam: Present: EOMI. Absent: scleral icterus Pupils: Present: NEVILLE - ENT ENT exam: Present: normal exam, ET tube is in good position - Neck Neck exam: Present: normal inspection. Absent: lymphadenopathy, thyromegaly - Respiratory Respiratory exam: Present: Patient has coarse breath sounds with some bilateral rhonchi present. - Cardiovascular Cardiovascular exam: Present: regular rate and rhythm, tachycardia. Absent: gallop, systolic murmur - GI/Abdominal GI/Abdominal exam: Present: normal bowel sounds, soft. Absent: organomegaly, tenderness - Extremities Exam Extremities exam: Absent: calf tenderness, edema - Neurological Exam Neurological exam: Present: He is sedated now on the ventilator. - Psychiatric Psychiatric exam: Present: He looks comfortable at present. - Skin Skin exam: Present: warm, dry Results - Labs CBC & BMP: 08/10/16 04:44 08/10/16 04:44 Labs: PO2 is 96 on 90% oxygen. PCO2 is 42 with a pH of 7.3 - Diagnostic Findings Procedure: Chest x-ray: image reviewed by me, report reviewed by me (Chest x- ray shows bilateral upper lobe infiltrates.) Assessment and Plan (1) Pneumonia Status: Acute Assessment and plan: The patient comes in short of breath and has left-sided pleurisy. He has developed a left upper lobe pneumonia. Blood cultures positive for pneumococcus. He will continue on antibiotics. He had to be intubated and is stable at present. Current Visit: Yes Qualifiers: Pneumonia type: due to Pneumococcus Laterality: left Lung location: upper lobe of lung Qualified Code(s): J13 - Pneumonia due to Streptococcus pneumoniae (2) COPD exacerbation Status: Acute Assessment and plan: The patient has had problems clearing secretions now is on the ventilator. Will proceed with a therapeutic bronchoscopy. Current Visit: Yes (3) Renal insufficiency Status: Acute Assessment and plan: Patient's creatinine is 1.5 and stable. Current Visit: Yes (4) Coronary artery disease Status: Acute Assessment and plan: Patient has known coronary artery disease with previous stents. His chest pain sounds like pleurisy however. Current Visit: No (5) Acute respiratory failure with hypoxemia Status: Acute Assessment and plan: The patient had more respiratory distress over the weekend and is developed more hypoxemia. He had to be intubated and is now stable on the ventilator. Current Visit: Yes Specialty Discharge - Follow Up or Referrals
[2016-08-10] MEDS: PROPOFOL 1,000 MG/100 ML BOTTLE IV SCH ×2 (08:31→23:26)
--- NOTE | 2016-08-10 09:17 | Operative Note ---
Date of procedure: 08/10/16 Pre-op diagnosis: Pneumonia Post-op diagnosis: same Procedure: The patient is an 81-year-old that came in with pneumonia in the left upper lobe and has worsening infiltrate and had to be intubated. Bronchoscopy will be done to clear airways and to assess airways. He is on the ventilator in the ICU. Procedure: The fiberoptic bronchoscope was passed to the ET tube into the airways. The bronchopulmonary segments were quickly identified but no specimens obtained. Findings: The ET tube is in good position in the trachea. The main bronchi are open. There is some bronchitis present. The secretions were not very purulent or thick at all. Both lungs were washed and cleared of secretions. The right upper lobe, right middle lobe, and right lower lobe are all open. The left upper lobe, lingula, and left lower lobe are open. The secretions were not as bad as expected. Once the airways were clear the procedure was stopped. His ventilator was adjusted. He tolerated the procedure well without problems. Impression: Bilateral upper lobe pneumonia. Plan: We will continue ventilatory support for now. Anesthesia: conscious sedation Surgeon / Physician: Eugene Poole Estimated blood loss: none Specimens: none sent Condition: critical Disposition: ICU Results - Labs CBC & BMP: 08/10/16 04:44 08/10/16 04:44 Discharge Plan - Discharge Medications No Action Polyethylene Glycol Powder [Miralax] 17 gm PO DAILY amLODIPine [Norvasc] 10 mg PO DAILY Aspirin EC Tab 1 tablet PO DAILY Albuterol Neb [Proventil Neb] 2.5 mg RESP TX Q4H PRN PRN Reason: Shortness Of Breath/Wheezing Clopidogrel [Plavix] 75 mg PO DAILY Valsartan 160 mg PO DAILY Dabigatran [Pradaxa] 75 mg PO BID Budesonide/Formoterol 160-4.5 [Symbicort 160-4.5] 2 puff INH BID Butalbital/Acet/Caff 50-325-40 [Fioricet 50-325-40 mg Tablet] 1 tablet PO BID Ondansetron [Ondansetron Odt] 4 mg PO Q4H PRN #10 tab.rapdis PRN Reason: Nausea - Follow Up or Referral - Forms/Instructions Instructions: Chronic Obstructive Pulmonary Disease (GEN)
--- NOTE | 2016-08-10 09:57 | Cardiology Progress Note ---
Taurus Best Vanessa, RN, am scribing for, and in the presence of, Phyllis Black MD 09:57. Assessment and Plan - Time spent with patient Time spent with patient: Greater than 30 minutes (1) Acute respiratory failure with hypoxemia Status: Acute Assessment and plan: Currently he is intubated, sedated, and appears comfortable. Defer primary management to pulmonology. Current Visit: Yes (2) Atrial fibrillation with RVR Status: Acute Assessment and plan: Continues to have intermittent rapid ventricular response. Continue antiarrhythmic. He is currently receiving Lopressor for rate control. Discontinue Pradaxa as this medicine is unable to be crushed. We will initiate Lovenox 1 mg/kg subcutaneously every 12 hours. Echocardiogram this admission shows an LV ejection fraction of 55%. Current Visit: Yes (3) Acute renal insufficiency Status: Acute Assessment and plan: This showed some improvement since admission, but after resuming his ARB yesterday, patient's creatinine noted to have increased from 1.2 to 1.5 today. Patient is also noted to be hyperkalemic. We will hold his Diovan. Current Visit: Yes (4) COPD exacerbation Status: Acute Assessment and plan: Defer primary management to pulmonology. Current Visit: Yes (5) Left ventricular hypertrophy by electrocardiogram Status: Chronic Current Visit: No (6) Pneumonia Status: Acute Assessment and plan: Defer primary management to hospital medicine and pulmonology. Current Visit: Yes Qualifiers: Pneumonia type: due to Pneumococcus Laterality: left Lung location: upper lobe of lung Qualified Code(s): J13 - Pneumonia due to Streptococcus pneumoniae (7) Essential hypertension Status: Chronic Assessment and plan: Blood pressure is fairly well controlled at this time, and he is not currently requiring vasopressors for support. Continue current medication regimen. Current Visit: No (8) Hx of coronary artery disease Status: Chronic Assessment and plan: No clinical findings for ACS at this time. Plavix has been continued. Current Visit: No (9) History of coronary artery stent placement Status: Chronic Assessment and plan: Plavix has been continued. Current Visit: No (10) History of CVA (cerebrovascular accident) Status: Chronic Current Visit: No Cardiology - PN: Subj Interval history: PRIMARY CHROMOSOMAL DISORDERS COUNSELOR: DR. JOSE RUFF Mr. Boo is intubated and sedated in the ICU, appears comfortable with ventilation. Vital signs have been stable overnight. Patient continues to have atrial fibrillation with intermittent rapid ventricular response. The intermittent RVR is not as tachycardic as yesterday, and pulse rate has been no higher than 105 bpm. Labs reviewed. White blood cell count 19.5 noted. Sodium level 138. He is hyperkalemic with a potassium level of 5.6. Patient has had acute renal insufficiency this admission, but creatinine showed some improvement over the past couple days. Today however creatinine noted to be elevated from 1.2-1.5. Exam (Progress Note) - Constitutional Vitals: Period Temp Pulse Resp BP Sys/Chen Pulse Ox Last 24 Hr 97.0 F-97.9 F 8-96 14-29 91-131/46-67 88-100 Exam: General appearance: no distress. Other: intubated and sedated with mechanical ventilation - Head Head exam: Present: normal inspection, normocephalic. Absent: laceration, hematoma - Eye Eye exam: Present: EOMI. Absent: scleral icterus Pupils: Present: VIANCA. Absent: dilated, fixed - ENT ENT exam: Present: normal exam. - Neck Neck exam: Present: normal inspection. Absent: lymphadenopathy, thyromegaly - Respiratory Respiratory exam: Present: Overall clear to auscultation bilaterally, there is normal rise and fall of the chest with ventilated breaths - Cardiovascular Cardiovascular exam: Present: irregular rate and rhythm, tachycardia. Absent: gallop, systolic murmur - GI/Abdominal GI/Abdominal exam: Present: normal bowel sounds, soft. Absent: organomegaly, tenderness, mass - Extremities Exam Extremities exam: Absent: calf tenderness, edema, full ROM - Neurological Exam Neurological exam: Present: Able to follow commands and move all extremities when sedation held. - Psychiatric Psychiatric exam: Present: Unable to adequately assess as he is intubated and sedated;appears comfortable with mechanical ventilation - Skin Skin exam: Present: warm, dry. Absent: cyanosis, diaphoresis, rash, suspicious lesion Result/EKG - Labs CBC & BMP: 08/10/16 04:44 08/10/16 04:44 Lab Results: I have reviewed the past 24 hour labs Labs: Laboratory Results - last 24 hr 08/09/16 08/09/16 08/09/16 09:19 10:43 11:51 WBC RBC Hgb Hct MCV MCH MCHC RDW Plt Count MPV Neut % (Auto) Lymph % (Auto) [place] % (Auto) Eos % (Auto) Baso % (Auto) Neut # (Auto) Lymph # (Auto) [place] # (Auto) Eos # (Auto) Baso # (Auto) Total Counted Immature Gran % Nucleated RBC % Immature Gran # Segmented Neutrophils Band Neutrophils Lymphocytes Monocytes Metamyelocytes Nucleated RBCs # Platelet Estimate Anisocytosis Macrocytosis ABG pH 7.285 L ABG pCO2 48.0 ABG pO2 85.0 ABG HCO3 20.9 ABG Total CO2 20.6 L ABG O2 Saturation 93.9 L ABG Base Excess -4.2 L FiO2 Sodium Potassium Chloride Carbon Dioxide Anion Gap BUN Creatinine GFR Calculation BUN/Creatinine Ratio Glucose POC Glucose 152 H Calculated Osmolality Calcium Prealbumin Vancomycin Trough 4.5 L 08/09/16 08/09/16 08/09/16 12:33 18:06 23:59 WBC RBC Hgb Hct MCV MCH MCHC RDW Plt Count MPV Neut % (Auto) Lymph % (Auto) [place] % (Auto) Eos % (Auto) Baso % (Auto) Neut # (Auto) Lymph # (Auto) [place] # (Auto) Eos # (Auto) Baso # (Auto) Total Counted Immature Gran % Nucleated RBC % Immature Gran # Segmented Neutrophils Band Neutrophils Lymphocytes Monocytes Metamyelocytes Nucleated RBCs # Platelet Estimate Anisocytosis Macrocytosis ABG pH 7.380 ABG pCO2 37.1 ABG pO2 112.0 H ABG HCO3 22.2 ABG Total CO2 19.3 L ABG O2 Saturation 97.7 ABG Base Excess -2.7 L FiO2 90.00 Sodium Potassium Chloride Carbon Dioxide Anion Gap BUN Creatinine GFR Calculation BUN/Creatinine Ratio Glucose POC Glucose 155 H 150 H Calculated Osmolality Calcium Prealbumin Vancomycin Trough 08/10/16 08/10/16 08/10/16 03:20 04:44 04:44 WBC 19.5 H RBC 3.61 L Hgb 11.0 L Hct 33.5 L MCV 92.8 MCH 31 MCHC 32.8 RDW 14.9 Plt Count 186 MPV 11.0 Neut % (Auto) 93.2 H Lymph % (Auto) 2.0 L [place] % (Auto) 3.2 Eos % (Auto) 0.0 Baso % (Auto) 0.2 Neut # (Auto) 18.2 H Lymph # (Auto) 0.4 L [place] # (Auto) 0.6 Eos # (Auto) 0.0 Baso # (Auto) 0.0 Total Counted 100 Immature Gran % 1.4 Nucleated RBC % 0.0 Immature Gran # 0.27 Segmented Neutrophils 93 H Band Neutrophils 1 Lymphocytes 3 L Monocytes 2 Metamyelocytes 1 Nucleated RBCs # 0.00 Platelet Estimate Normal Anisocytosis 1+ Macrocytosis 1+ ABG pH 7.306 L ABG pCO2 42.3 ABG pO2 96.9 H ABG HCO3 20.2 ABG Total CO2 19.1 L ABG O2 Saturation 96.3 ABG Base Excess -5.0 L FiO2 90.00 Sodium 138 Potassium 5.6 H Chloride 110 H Carbon Dioxide 22 Anion Gap 11.6 BUN 79 H D Creatinine 1.50 H GFR Calculation 50 BUN/Creatinine Ratio 52.00 H Glucose 177 H POC Glucose Calculated Osmolality 302.7 Calcium 7.5 L Prealbumin 11.8 L Vancomycin Trough 08/10/16 05:47 WBC RBC Hgb Hct MCV MCH MCHC RDW Plt Count MPV Neut % (Auto) Lymph % (Auto) [place] % (Auto) Eos % (Auto) Baso % (Auto) Neut # (Auto) Lymph # (Auto) [place] # (Auto) Eos # (Auto) Baso # (Auto) Total Counted Immature Gran % Nucleated RBC % Immature Gran # Segmented Neutrophils Band Neutrophils Lymphocytes Monocytes Metamyelocytes Nucleated RBCs # Platelet Estimate Anisocytosis Macrocytosis ABG pH ABG pCO2 ABG pO2 ABG HCO3 ABG Total CO2 ABG O2 Saturation ABG Base Excess FiO2 Sodium Potassium Chloride Carbon Dioxide Anion Gap BUN Creatinine GFR Calculation BUN/Creatinine Ratio Glucose POC Glucose 163 H Calculated Osmolality Calcium Prealbumin Vancomycin Trough - Diagnostic Findings Procedure: Chest x-ray: image reviewed by me, report reviewed by me - EKG EKG results: interpreted by me EKG shows: atrial fibrillation (intermittent RVR; overall pulse rate 80s-90s) Specialty Discharge - Follow Up or Referrals Wayne Best Jennifer, MD, personally performed the services described in this documentation, ascribed by Yashira Condon RN in my presence, and it is both accurate and complete [id number] .
[2016-08-10] MEDS: ENOXAPARIN 80 MG/0.8 ML SYRINGE SUBCUT SCH ×2 (10:31→21:46)
[2016-08-10] MEDS: ASPIRIN EC 81 MG TABLET PO SCH (10:31)
[2016-08-10] MEDS: amLODIPine 10 MG TABLET PER TUBE SCH (10:32)
[2016-08-10] MEDS: PANTOPRAZOLE 40 MG VIAL IV SCH ×2 (10:32→21:46)
[2016-08-10] MEDS: POLYETHYLENE GLYCOL POWDER 17 GM PACK PO SCH (10:32)
[2016-08-10] MEDS: AMIODARONE 200 MG TABLET PER TUBE SCH ×3 (10:32→21:47)
[2016-08-10] MEDS: METOPROLOL TARTRATE 50 MG TABLET PER TUBE SCH ×2 (10:32→21:47)
[2016-08-10] MEDS: CLOPIDOGREL 75 MG TABLET PER TUBE SCH (10:32)
[2016-08-10] MEDS: BUTALBITAL/ACETAMIN/CAFFEINE 50-325-40 MG TABLET PER TUBE SCH ×2 (11:10→21:47)
--- NOTE | 2016-08-10 11:37 | Hospitalist Progress Note ---
Assessment and Plan (1) COPD (chronic obstructive pulmonary disease) Status: Acute Assessment and plan: As per pulmonary. Current Visit: No (2) Pneumonia Status: Acute Assessment and plan: He continues on intravenous levofloxacin, meropenem, and vancomycin, as per pulmonary. Current Visit: Yes Qualifiers: Pneumonia type: due to Pneumococcus Laterality: left Lung location: upper lobe of lung Qualified Code(s): J13 - Pneumonia due to Streptococcus pneumoniae (3) Acute renal insufficiency Status: Acute Assessment and plan: His BUN and creatinine today are 79 and 1.5 respectively. His potassium is 5.6. His valsartan and has been discontinued. Current Visit: Yes (4) Acute respiratory failure with hypoxemia Status: Acute Assessment and plan: Arterial blood gases are as indicated above. He continues on assisted ventilation as per pulmonary. Current Visit: Yes (5) Atrial fibrillation with RVR Status: Acute Assessment and plan: His heart rate is adequately controlled at the present time at 94/min. Continues on intravenous metoprolol as per cardiology. Current Visit: Yes Hospitalist: Subjective Interval history: The patient is an 81-year-old white male with coronary artery disease, atrial fibrillation, and chronic obstructive pulmonary disease. Was hospitalized here with left upper lobe pneumonia. Cultures have demonstrated the pneumonia to be due to pneumococcus.He is presently being treated with levofloxacin, meropenem, and vancomycin. He underwent bronchoscopy today by Dr. Knight demonstrating less than expected secretions. Lavage was performed successfully. The patient is stable status post bronchoscopy. His atrial fibrillation is being controlled with intravenous metoprolol. His anticoagulation is been changed from dabigatran to a enoxaparin. Exam - Constitutional Vitals: Period Temp Pulse Resp BP Sys/Chen Pulse Ox Last 24 Hr 97.0 F-97.9 F 8-119 14-32 91-161/46-120 88-100 General appearance: no acute distress, other (Intubated on assisted ventilation. ) - Head Head exam: Present: normal inspection, normocephalic - Eye Eye exam: Present: EOMI Pupils: Present: [place] - Neck Neck exam: Present: normal inspection - Respiratory Respiratory exam: Present: rhonchi - Cardiovascular Cardiovascular exam: Present: irregular rhythm - GI/Abdominal GI/Abdominal exam: Present: normal bowel sounds, soft - Extremities Exam Extremities exam: Present: normal inspection - Skin Skin exam: Present: normal color, warm, dry Results - Labs CBC & BMP: 08/10/16 04:44 08/10/16 04:44 Specialty Discharge - Follow Up or Referrals
[2016-08-10] MEDS: VANCOMYCIN INJ 1,000 MG in SODIUM CHLORIDE 0.9% 250 ML IV SCH ×2 (12:04→23:00)
[2016-08-10 12:13] LABS: Allen Test Positive; Pt O2 Delivery Device Ventilator
[2016-08-10 12:14] LABS: ABG Base Excess -5.4 MMOL/L (-2.5-2.5); ABG HCO3 19.8 MMOL/L (20-26); ABG Oxygen Saturation 88.9 % (95-100); ABG PCO2 48.3 MM HG (35-48); ABG PH 7.265 (7.35-7.45); ABG PO2 65.6 MM HG (80-95); ABG TCO2 19.8 MMOL/L (23-27)
--- NOTE | 2016-08-10 12:50 | XRay Report ---
XR chest 1V portable Indication: Worsening shortness of breath. Comparison: Chest x-ray 08/10/2016; 0300 hours Technique: Portable AP chest was performed. Findings: Multiple tubes and medical support devices appear stable. Diffusely distributed airspace opacities within the left lung as well as confluent airspace opacities most noticeable within the upper right lung appear to have minimally worsened within the left upper chest and right upper chest. Multiple tubes and medical support devices appear stable. Chest is otherwise unchanged. Impression: 1. Minimal interval worsening of pulmonary edema or infection could be considered. 08/10/2016 12:46 PM PROCEDURE INTERPRETED AT [facility] DEPARTMENT OF RADIOLOGY Final Report Signed by: Dr. Johann Manzo
[2016-08-10] MEDS ORDERED: DEXTROSE 50% 25 GM/50 ML VIAL IV PRN (16:48)
[2016-08-10] MEDS ORDERED: GLUCAGON 1 MG VIAL IM PRN (16:48)
[2016-08-10] MEDS: LEVOFLOXACIN INJ 500 MG in PREMIX 1 EACH IV SCH (17:29)
[2016-08-10] MEDS: INSULIN REGULAR 100 UNIT/ML SUBCUT SCH (18:25)
[2016-08-10] MEDS: ZOLPIDEM 5 MG PO SCH (21:21)
[2016-08-11] MEDS: ALBUTEROL/IPRATROPIUM 3 ML NEB RESP TX SCH ×6 (00:49→20:43)
[2016-08-11] MEDS: INSULIN REGULAR 100 UNIT/ML SUBCUT SCH ×4 (01:04→18:18)
[2016-08-11] MEDS: MEROPENEM 1,000 MG in SODIUM CHLORIDE 0.9% 100 ML IV SCH ×3 (03:53→18:19)
[2016-08-11 04:16] LABS: ABG Base Excess -4.8 MMOL/L (-2.5-2.5); ABG HCO3 20.5 MMOL/L (20-26); ABG Oxygen Saturation 98.1 % (95-100); ABG PCO2 40.7 MM HG (35-48); ABG TCO2 19.2 MMOL/L (23-27); Allen Test Positive; Pt O2 Delivery Device Ventilator
[2016-08-11] MEDS: fentaNYL INJ 1,250 MCG in SODIUM CHLORIDE 0.9% 225 ML IV SCH ×2 (05:11→15:05)
[2016-08-11] MEDS: methylPREDNISolone SOD SUC 40 MG/1 ML VIAL IV SCH ×3 (07:02→21:24)
--- NOTE | 2016-08-11 07:02 | XRay Report ---
Portable chest. Indication: Pneumonia. Comparison: August 10, 2016. The heart is enlarged. Post median sternotomy. The distal tip of a nasogastric tube projects off the field of the film, beyond the GE junction. An endotracheal tube is in satisfactory position. There are bilateral infiltrates present, involving the right upper lobe, and left upper and mid lung price. No pneumothorax or pleural effusion. Stable osseous structures. Impression: No significant interval change is seen. PROCEDURE INTERPRETED AT [facility] DEPARTMENT OF RADIOLOGY Final Report Signed by: Dr. Luli Pearce
[2016-08-11] MEDS: PROPOFOL 1,000 MG/100 ML BOTTLE IV SCH ×4 (07:03→23:05)
[2016-08-11] MEDS: PANTOPRAZOLE 40 MG VIAL IV SCH ×2 (08:34→21:24)
[2016-08-11] MEDS: CLOPIDOGREL 75 MG TABLET PER TUBE SCH (08:35)
[2016-08-11] MEDS: ENOXAPARIN 80 MG/0.8 ML SYRINGE SUBCUT SCH ×2 (08:35→21:24)
[2016-08-11] MEDS: ASPIRIN EC 81 MG TABLET PO SCH (08:35)
[2016-08-11] MEDS: POLYETHYLENE GLYCOL POWDER 17 GM PACK PO SCH (08:35)
[2016-08-11] MEDS: AMIODARONE 200 MG TABLET PER TUBE SCH ×3 (08:35→21:24)
[2016-08-11] MEDS: BUTALBITAL/ACETAMIN/CAFFEINE 50-325-40 MG TABLET PER TUBE SCH ×2 (08:36→21:25)
[2016-08-11] MEDS: METOPROLOL TARTRATE 50 MG TABLET PER TUBE SCH ×2 (08:37→21:24)
[2016-08-11 08:59] LABS: Calcium 7.3 MG/DL (8.5-10.1); Magnesium 3.7 MG/DL (1.8-2.4); Osmolality,Calculated 318.5 MOS/KG (273-304); Potassium 5.4 MMOL/L (3.5-5.1)
[2016-08-11] MEDS: amLODIPine 10 MG TABLET PER TUBE SCH (10:17)
[2016-08-11] MEDS: VANCOMYCIN INJ 1,000 MG in SODIUM CHLORIDE 0.9% 250 ML IV SCH (10:54)
--- NOTE | 2016-08-11 11:40 | Hospitalist Progress Note ---
Assessment and Plan (1) COPD (chronic obstructive pulmonary disease) Status: Acute Assessment and plan: As per pulmonary. Current Visit: No (2) Pneumonia Status: Acute Assessment and plan: He continues on intravenous levofloxacin, meropenem, and vancomycin, as per pulmonary. Current Visit: Yes Qualifiers: Pneumonia type: due to Pneumococcus Laterality: left Lung location: upper lobe of lung Qualified Code(s): J13 - Pneumonia due to Streptococcus pneumoniae (3) Acute renal insufficiency Status: Acute Assessment and plan: His BUN and creatinine today are 112 and 1.6. His potassium is 5.4. His valsartan and has been discontinued. Current Visit: Yes (4) Acute respiratory failure with hypoxemia Status: Acute Assessment and plan: Arterial blood gases are as indicated above. He continues on assisted ventilation as per pulmonary. Current Visit: Yes (5) Atrial fibrillation with RVR Status: Acute Assessment and plan: His heart rate is adequately controlled at the present time at 94/min. Continues on intravenous metoprolol as per cardiology. Current Visit: Yes Hospitalist: Subjective Interval history: Mr. Mcconnell is an 81-year-old white male with coronary artery disease, paroxysmal atrial fibrillation, and chronic obstructive pulmonary disease. He was hospitalized here with a left upper lobe pneumonia and acute respiratory failure. Cultures have demonstrated the pneumonia be due to pneumococcus. He is presently being treated with levofloxacin, meropenem, and vancomycin. Dr. Knight performed bronchoscopy yesterday demonstrating less than expected secretions. Lavage was performed successfully. His cardiac status has been stable. His heart rate is well controlled on an as-needed basis with intravenous metoprolol. There is no evidence of acute coronary syndrome. His anticoagulation presently consist of Lovenox. He continues with propofol and fentanyl sedation while on the ventilator. Exam - Constitutional Vitals: Period Temp Pulse Resp BP Sys/Chen Pulse Ox Last 24 Hr 97.8 F-98.7 F 71-96 12-22 88-138/46-68 80-100 General appearance: no acute distress, other (Intubated on assisted ventilation. ) - Head Head exam: Present: normal inspection, normocephalic - Eye Eye exam: Present: EOMI Pupils: Present: [place] - Neck Neck exam: Present: normal inspection - Respiratory Respiratory exam: Present: clear to auscultation bilaterally - Cardiovascular Cardiovascular exam: Present: regular rate and rhythm, other (No murmur, rub, or gallop.) - GI/Abdominal GI/Abdominal exam: Present: hypoactive bowel sounds, soft - Extremities Exam Extremities exam: Present: normal inspection - Neurological Exam Neurological exam: Present: other (Sedated.) - Skin Skin exam: Present: normal color, warm, dry Results - Labs CBC & BMP: 08/10/16 04:44 08/11/16 04:47 Specialty Discharge - Follow Up or Referrals
[2016-08-11] MEDS: LACTULOSE 20 GM/30 ML UDCUP PO SCH (11:46)
--- NOTE | 2016-08-11 13:17 | Pulmonology Progress Note ---
Pulmonary - PN: Subj Interval history: Patient is an 81-year-old that has coronary artery disease and COPD. He came in with left-sided chest pleurisy and shortness of breath and has a left upper lobe pneumonia. His cultures have grown pneumococcal pneumonia. Over the weekend he had more respiratory distress and had to be intubated. He did develop more right upper lobe pneumonia also. His lung compliance is stable. He had a fairly good night and his oxygenation is a little better. He still has bilateral upper lobe infiltrates. He has been comfortable on the ventilator. Exam (Progress Note) - Constitutional Vitals: Period Temp Pulse Resp BP Sys/Chen Pulse Ox Last 24 Hr 97.4 F-98.7 F 71-96 12-19 88-138/40-67 84-100 Exam: General appearance: no distress (The patient is sedated on the ventilator now. He does have stable vital signs at present.) - Head Head exam: Present: normal inspection, normocephalic - Eye Eye exam: Present: EOMI. Absent: scleral icterus Pupils: Present: NEVILLE - ENT ENT exam: Present: normal exam, ET tube is in good position - Neck Neck exam: Present: normal inspection. Absent: lymphadenopathy, thyromegaly - Respiratory Respiratory exam: Present: Patient has coarse breath sounds with some bilateral rhonchi present. He has some crackles in both upper lungs. - Cardiovascular Cardiovascular exam: Present: regular rate and rhythm, tachycardia. Absent: gallop, systolic murmur - GI/Abdominal GI/Abdominal exam: Present: normal bowel sounds, soft. Absent: organomegaly, tenderness - Extremities Exam Extremities exam: Absent: calf tenderness, edema - Neurological Exam Neurological exam: Present: He is sedated now on the ventilator. - Psychiatric Psychiatric exam: Present: He looks comfortable at present. - Skin Skin exam: Present: warm, dry Results - Labs CBC & BMP: 08/10/16 04:44 08/11/16 04:47 Labs: PO2 is 126 with a PCO2 of 40 and a pH of 7.32. - Diagnostic Findings Procedure: Chest x-ray: image reviewed by me, report reviewed by me (Chest x- ray she does show bilateral upper lobe infiltrates.) Assessment and Plan (1) Pneumonia Status: Acute Assessment and plan: The patient comes in short of breath and has left-sided pleurisy. He has developed a left upper lobe pneumonia. Blood cultures positive for pneumococcus. He developed worsening respiratory failure and is on the ventilator. The now he has infiltrates in both upper lobes. He is getting multiple antibiotics. Current Visit: Yes Qualifiers: Pneumonia type: due to Pneumococcus Laterality: left Lung location: upper lobe of lung Qualified Code(s): J13 - Pneumonia due to Streptococcus pneumoniae (2) COPD exacerbation Status: Acute Assessment and plan: The patient has a component of COPD and will continue with treatment. His oxygenation is better on the ventilator. Current Visit: Yes (3) Renal insufficiency Status: Acute Assessment and plan: Patient's creatinine is 1.6 and stable. Current Visit: Yes (4) Coronary artery disease Status: Acute Assessment and plan: Patient has known coronary artery disease with previous stents. His chest pain sounds like pleurisy however. Current Visit: No (5) Acute respiratory failure with hypoxemia Status: Acute Assessment and plan: The patient had more respiratory distress over the weekend and is developed more hypoxemia. He had to be intubated and is now stable on the ventilator. He is fairly stable on the ventilator at present. Current Visit: Yes Specialty Discharge - Follow Up or Referrals
[2016-08-11] MEDS ORDERED: amLODIPine 5 MG TABLET PER TUBE SCH (13:28)
--- NOTE | 2016-08-11 13:30 | Cardiology Progress Note ---
Taurus Best Vanessa, RN, am scribing for, and in the presence of, Phyllis Black MD 13:29. Assessment and Plan - Time spent with patient Time spent with patient: Greater than 30 minutes (1) Acute respiratory failure with hypoxemia Status: Acute Assessment and plan: He remains intubated, sedated, and appears comfortable. Defer primary management of ventilator and weaning to pulmonology. Current Visit: Yes (2) Atrial fibrillation with RVR Status: Acute Assessment and plan: No significant rapid ventricular response seen overnight or this morning per tele review. Continue antiarrhythmic. Continue IV Lopressor for rate control. Continue Lovenox 1 mg/kg twice daily. Echocardiogram this admission shows an LV ejection fraction of 55%. Current Visit: Yes (3) Acute renal insufficiency Status: Acute Assessment and plan: Diovan has been discontinued after creatinine and potassium noted to be elevated yesterday. Will review BMP results this morning when they are available. Current Visit: Yes (4) COPD exacerbation Status: Acute Assessment and plan: Defer primary management to pulmonology. Current Visit: Yes (5) Left ventricular hypertrophy by electrocardiogram Status: Chronic Current Visit: No (6) Pneumonia Status: Acute Assessment and plan: Defer primary management to hospital medicine and pulmonology. Current Visit: Yes Qualifiers: Pneumonia type: due to Pneumococcus Laterality: left Lung location: upper lobe of lung Qualified Code(s): J13 - Pneumonia due to Streptococcus pneumoniae (7) Essential hypertension Status: Chronic Assessment and plan: Blood pressure is fairly well controlled at this time, and he is not currently requiring vasopressors for support. I'm going to decrease his amlodipine because he is also receiving Cardizem. His hemodynamics will tolerate this change. Current Visit: No (8) Hx of coronary artery disease Status: Chronic Assessment and plan: No clinical findings for ACS at this time. Plavix has been continued. Current Visit: No (9) History of coronary artery stent placement Status: Chronic Assessment and plan: Plavix has been continued. Current Visit: No (10) History of CVA (cerebrovascular accident) Status: Chronic Current Visit: No Cardiology - PN: Subj Interval history: PRIMARY ATHLETIC COACH: DR. JOSE RUFF Mr. Boo remains intubated and sedated this morning under close observation in ICU. There have been no acute changes or new findings overnight in patient's hemodynamic status. Systolic BP ranging 105-135 mmHg, and he is not requiring vasopressors. Remains in atrial fibrillation, and there has been no significant RVR noted overnight. Pulse is well controlled today with rate in the 80s. ABGs noted. Exam (Progress Note) - Constitutional Vitals: Period Temp Pulse Resp BP Sys/Chen Pulse Ox Last 24 Hr 97.8 F-98.7 F 75-119 12-32 88-161/46-120 80-100 Exam: General appearance: no distress. Other: intubated and sedated with mechanical ventilation - Head Head exam: Present: normal inspection, normocephalic. Absent: laceration, hematoma - Eye Eye exam: Present: EOMI. Absent: scleral icterus Pupils: Present: VIANCA. Absent: dilated, fixed - ENT ENT exam: Present: normal exam. - Neck Neck exam: Present: normal inspection. Absent: lymphadenopathy, thyromegaly, mass - Respiratory Respiratory exam: Present: Overall clear to auscultation bilaterally, there is normal rise and fall of the chest with ventilated breaths - Cardiovascular Cardiovascular exam: Present: irregular rate and rhythm, Absent: gallop, systolic murmur, tachycardia, bradycardia, carotid bruit, JVD - GI/Abdominal GI/Abdominal exam: Present: normal bowel sounds, soft. Absent: organomegaly, tenderness, mass - Extremities Exam Extremities exam: Present: normal capillary refill. Absent: calf tenderness, edema, full ROM - Neurological Exam Neurological exam: Present: appropriate and neurologically intact when sedation is held. - Psychiatric Psychiatric exam: Present: Unable to adequately assess as he is intubated and sedated; he does appear comfortable with mechanical ventilation and does not appear to be anxious,agitated - Skin Skin exam: Present: warm, dry, intact. Absent: cyanosis, diaphoresis, rash, suspicious lesion Result/EKG - Labs CBC & BMP: 08/10/16 04:44 08/11/16 04:47 Lab Results: I have reviewed the past 24 hour labs Labs: Laboratory Results - last 24 hr 08/10/16 08/10/16 08/10/16 11:55 12:06 17:59 ABG pH 7.265 L ABG pCO2 48.3 H ABG pO2 65.6 L ABG HCO3 19.8 L ABG Total CO2 19.8 L ABG O2 Saturation 88.9 L ABG Base Excess -5.4 L FiO2 80.00 POC Glucose 202 H 180 H Phosphorus 08/10/16 08/11/16 08/11/16 23:39 04:02 04:47 ABG pH 7.320 L ABG pCO2 40.7 ABG pO2 126.0 H ABG HCO3 20.5 ABG Total CO2 19.2 L ABG O2 Saturation 98.1 ABG Base Excess -4.8 L FiO2 80.00 POC Glucose 189 H Phosphorus 4.6 08/11/16 05:39 ABG pH ABG pCO2 ABG pO2 ABG HCO3 ABG Total CO2 ABG O2 Saturation ABG Base Excess FiO2 POC Glucose 216 H Phosphorus - Diagnostic Findings Procedure: Chest x-ray: image reviewed by me, report reviewed by me (08/11: no significant change; bilateral infiltrates involving RUL, MISSY and mid lung) - EKG EKG results: interpreted by me, no acute changes EKG shows: atrial fibrillation (pulse rate 80s) Specialty Discharge - Follow Up or Referrals I, Phyllis Black MD, personally performed the services described in this documentation, ascribed by Yashira Condon RN in my presence, and it is both accurate and complete [id number] .
[2016-08-11] MEDS: LEVOFLOXACIN INJ 500 MG in PREMIX 1 EACH IV SCH (18:18)
[2016-08-11] MEDS: ZOLPIDEM 5 MG PO SCH (21:07)
[2016-08-12] MEDS: ALBUTEROL/IPRATROPIUM 3 ML NEB RESP TX SCH ×7 (00:43→23:57)
[2016-08-12] MEDS: INSULIN REGULAR 100 UNIT/ML SUBCUT SCH ×5 (01:00→23:49)
[2016-08-12] MEDS: MEROPENEM 1,000 MG in SODIUM CHLORIDE 0.9% 100 ML IV SCH ×3 (03:20→18:30)
[2016-08-12 03:38] LABS: Allen Test Positive; Pt O2 Delivery Device Ventilator
[2016-08-12 03:39] LABS: ABG Base Excess -3.9 MMOL/L (-2.5-2.5); ABG HCO3 21.1 MMOL/L (20-26); ABG Oxygen Saturation 96.5 % (95-100); ABG PCO2 45.5 MM HG (35-48); ABG PH 7.303 (7.35-7.45); ABG PO2 93.8 MM HG (80-95); ABG TCO2 20.5 MMOL/L (23-27)
[2016-08-12] MEDS: PROPOFOL 1,000 MG/100 ML BOTTLE IV SCH ×3 (05:44→19:37)
--- NOTE | 2016-08-12 05:51 | XRay Report ---
XR chest 1V portable Indication: Pneumonia Comparison: Chest x-ray 08/11/2016 Technique: Portable AP chest was performed. Findings: Worsening airspace disease mid to lower left lung is demonstrated. Upper lungs demonstrate little change given the difference in inspiration. Multiple tubes and medical support devices appear stable. Chest is otherwise stable. Impression: 1. Worsening airspace disease left lung. Otherwise little change in the chest. 08/12/2016 5:48 AM PROCEDURE INTERPRETED AT [facility] DEPARTMENT OF RADIOLOGY Final Report Signed by: Dr. Johann Manzo
[2016-08-12] MEDS: methylPREDNISolone SOD SUC 40 MG/1 ML VIAL IV SCH ×3 (06:25→21:45)
[2016-08-12] MEDS: VANCOMYCIN INJ 1,000 MG in SODIUM CHLORIDE 0.9% 250 ML IV SCH ×3 (06:26→23:54)
[2016-08-12] MEDS: LACTULOSE 20 GM/30 ML UDCUP PO SCH (08:08)
[2016-08-12] MEDS: POLYETHYLENE GLYCOL POWDER 17 GM PACK PO SCH (08:10)
[2016-08-12] MEDS: CLOPIDOGREL 75 MG TABLET PER TUBE SCH (08:13)
[2016-08-12] MEDS: METOPROLOL TARTRATE 50 MG TABLET PER TUBE SCH ×2 (08:13→20:06)
[2016-08-12] MEDS: ASPIRIN EC 81 MG TABLET PO SCH (08:13)
[2016-08-12] MEDS: BUTALBITAL/ACETAMIN/CAFFEINE 50-325-40 MG TABLET PER TUBE SCH ×2 (08:14→20:08)
[2016-08-12] MEDS: AMIODARONE 200 MG TABLET PER TUBE SCH ×3 (08:14→20:09)
[2016-08-12] MEDS: ENOXAPARIN 80 MG/0.8 ML SYRINGE SUBCUT SCH ×2 (08:15→20:05)
[2016-08-12] MEDS: PANTOPRAZOLE 40 MG VIAL IV SCH ×2 (08:15→20:05)
--- NOTE | 2016-08-12 08:30 | Pulmonology Progress Note ---
Pulmonary - PN: Subj Interval history: Patient is an 81-year-old that has coronary artery disease and COPD. He came in with left-sided chest pleurisy and shortness of breath and has a left upper lobe pneumonia. His cultures have grown pneumococcal pneumonia. Over the weekend he had more respiratory distress and had to be intubated. He did develop more right upper lobe pneumonia also. His lung compliance is stable. He has been comfortable on the ventilator and his chest x-ray is looking a little better. His PO2 is still on the low side but overall he appears stable. Exam (Progress Note) - Constitutional Vitals: Period Temp Pulse Resp BP Sys/Chen Pulse Ox Last 24 Hr 97.4 F-99.4 F 69-99 12-28 109-156/40-75 93-100 Exam: General appearance: no distress (The patient is sedated on the ventilator now. He does have stable vital signs at present.) - Head Head exam: Present: normal inspection, normocephalic - Eye Eye exam: Present: EOMI. Absent: scleral icterus Pupils: Present: NEVILLE - ENT ENT exam: Present: normal exam, ET tube is in good position - Neck Neck exam: Present: normal inspection. Absent: lymphadenopathy, thyromegaly - Respiratory Respiratory exam: Present: Patient has coarse breath sounds but is moving air fairly well in his lungs sound a little better today. - Cardiovascular Cardiovascular exam: Present: regular rate and rhythm, he is back in a sinus rhythm.. Absent: gallop, systolic murmur - GI/Abdominal GI/Abdominal exam: Present: normal bowel sounds, soft. Absent: organomegaly, tenderness - Extremities Exam Extremities exam: Absent: calf tenderness, edema - Neurological Exam Neurological exam: Present: He is sedated now on the ventilator. - Psychiatric Psychiatric exam: Present: He looks comfortable at present. - Skin Skin exam: Present: warm, dry Results - Labs CBC & BMP: 08/10/16 04:44 08/11/16 04:47 Labs: His PO2 is 93 with a PCO2 of 45 and a pH of 7.3 - Diagnostic Findings Procedure: Chest x-ray: image reviewed by me, report reviewed by me (Right upper lobe infiltrate is better. Still has considerable left upper lobe infiltrate.) Assessment and Plan (1) Pneumonia Status: Acute Assessment and plan: The patient comes in short of breath and has left-sided pleurisy. He has developed a left upper lobe pneumonia. Blood cultures positive for pneumococcus. He developed worsening respiratory failure and is on the ventilator. The now he has infiltrates in both upper lobes. He is getting multiple antibiotics. Clinically he is stable and doing a little better. His x-ray is improving. Current Visit: Yes Qualifiers: Pneumonia type: due to Pneumococcus Laterality: left Lung location: upper lobe of lung Qualified Code(s): J13 - Pneumonia due to Streptococcus pneumoniae (2) COPD exacerbation Status: Acute Assessment and plan: The patient has a component of COPD and will continue with treatment. His oxygenation is better on the ventilator. Current Visit: Yes (3) Renal insufficiency Status: Acute Assessment and plan: Patient's creatinine is 1.6 and stable. Current Visit: Yes (4) Coronary artery disease Status: Acute Assessment and plan: Patient has known coronary artery disease with previous stents. His chest pain sounds like pleurisy however. Current Visit: No (5) Acute respiratory failure with hypoxemia Status: Acute Assessment and plan: The patient had more respiratory distress over the weekend and is developed more hypoxemia. He had to be intubated and is now stable on the ventilator. He is fairly stable on the ventilator at present. He still requires a fairly high FiO2 but his x-rays slowly improving . He is stable on the ventilator. Current Visit: Yes Specialty Discharge - Follow Up or Referrals
--- NOTE | 2016-08-12 08:59 | EKG Report ---
Stationary ECG Study [facility] Test Date: 08/12/2016 9:00:01 AM Pat Name: RENUKA AVENDANO Department: Room: 109 Gender: M Rn Cardiology: DUY : 1935 Requested by: Phyllis Black Order Number: [id number] Reading MD: CAMERON CHEN Intervals Ewen Rate: 60 P: 75 MN: 118 QRS: 30 QRSD: 98 T: 121 QT: 373 QTc: 374 Interpretive Statements SINUS RHYTHM WITH SHORT MN INTERVAL NONSPECIFIC T-WAVE ABNORMALITY Electronically Signed On 08-14-16 13:20:07 CDT by CAMERON CHEN [email or web address]
[2016-08-12 09:20] LABS: Calcium 7.4 MG/DL (8.5-10.1); Magnesium 3.9 MG/DL (1.8-2.4); Osmolality,Calculated 328.7 MOS/KG (273-304); Potassium 5.7 MMOL/L (3.5-5.1)
--- NOTE | 2016-08-12 10:32 | Hospitalist Progress Note ---
Assessment and Plan (1) COPD (chronic obstructive pulmonary disease) Status: Acute Assessment and plan: As per pulmonary. Current Visit: No (2) Pneumonia Status: Acute Assessment and plan: He continues on intravenous levofloxacin, meropenem, and vancomycin, as per pulmonary. Current Visit: Yes Qualifiers: Pneumonia type: due to Pneumococcus Laterality: left Lung location: upper lobe of lung Qualified Code(s): J13 - Pneumonia due to Streptococcus pneumoniae (3) Acute renal insufficiency Status: Acute Assessment and plan: His BUN and creatinine today are 115 and 1.5. His potassium is 5.7. Current Visit: Yes (4) Acute respiratory failure with hypoxemia Status: Acute Assessment and plan: Arterial blood gases are as indicated above. He continues on assisted ventilation as per pulmonary. Current Visit: Yes (5) Atrial fibrillation with RVR Status: Acute Assessment and plan: His heart rate is adequately controlled at the present time at 94/min. Continues on intravenous metoprolol as per cardiology. Current Visit: Yes Hospitalist: Subjective Interval history: Mr. Mcconnell is an 81-year-old white male with coronary artery disease, paroxysmal atrial fibrillation, and chronic obstructive pulmonary disease. He was hospitalized here with a left upper lobe pneumonia and acute respiratory failure. Cultures of demonstrated the pneumonia be due to pneumococcus. He is presently being treated with levofloxacin, meropenem, and vancomycin. He is being followed both by Dr. Caleb Poole of pulmonary and Dr. Black of cardiology. He appears to be stable at the present time. Exam - Constitutional Vitals: Period Temp Pulse Resp BP Sys/Chen Pulse Ox Last 24 Hr 97.4 F-99.4 F 61-99 12-28 97-156/40-75 93-100 General appearance: no acute distress, other (Intubated on assisted ventilation. ) - Head Head exam: Present: normal inspection, normocephalic - Eye Eye exam: Present: EOMI Pupils: Present: NEVILLE - Neck Neck exam: Present: normal inspection - Respiratory Respiratory exam: Present: clear to auscultation bilaterally - Cardiovascular Cardiovascular exam: Present: regular rate and rhythm - GI/Abdominal GI/Abdominal exam: Present: normal bowel sounds, soft - Extremities Exam Extremities exam: Present: normal inspection - Neurological Exam Neurological exam: Present: other (Sedated.) - Skin Skin exam: Present: normal color, warm, dry Results - Labs CBC & BMP: 04/24/17 04:44 08/12/16 08:30 Specialty Discharge - Follow Up or Referrals
[2016-08-12] MEDS: fentaNYL INJ 1,250 MCG in SODIUM CHLORIDE 0.9% 225 ML IV SCH (11:20)
--- NOTE | 2016-08-12 14:19 | Cardiology Progress Note ---
Taurus Best Vanessa, RN, am scribing for, and in the presence of, Phyllis Black MD 14:19. Assessment and Plan - Time spent with patient Time spent with patient: Greater than 30 minutes (1) Acute respiratory failure with hypoxemia Status: Acute Assessment and plan: He remains intubated, sedated, and appears comfortable. Defer primary management of ventilator and weaning to pulmonology. CPAP trials have not been started at this time. Current Visit: Yes (2) Atrial fibrillation with RVR Status: Acute Assessment and plan: No significant rapid ventricular response seen overnight or this morning per tele review. Continue antiarrhythmic. Continue IV Lopressor for rate control. Continue Lovenox 1 mg/kg twice daily. Echocardiogram this admission shows an LV ejection fraction of 55%. He appears to be in a normal sinus rhythm per tele monitor, pulse rate 70s and regular upon exam. Will obtain EKG for further review. Current Visit: Yes (3) Acute renal insufficiency Status: Acute Assessment and plan: We are holding Diovan. His BP remains stable. Current Visit: Yes (4) COPD exacerbation Status: Acute Assessment and plan: Defer primary management to pulmonology. Current Visit: Yes (5) Left ventricular hypertrophy by electrocardiogram Status: Chronic Current Visit: No (6) Pneumonia Status: Acute Assessment and plan: Defer primary management to hospital medicine and pulmonology. Current Visit: Yes Qualifiers: Pneumonia type: due to Pneumococcus Laterality: left Lung location: upper lobe of lung Qualified Code(s): J13 - Pneumonia due to Streptococcus pneumoniae (7) Essential hypertension Status: Chronic Assessment and plan: Blood pressure remains well controlled. He has tolerated Norvasc decrease well. Current Visit: No (8) Hx of coronary artery disease Status: Chronic Assessment and plan: No clinical findings for ACS at this time. Plavix has been continued. Current Visit: No (9) History of coronary artery stent placement Status: Chronic Assessment and plan: Plavix has been continued. Current Visit: No (10) History of CVA (cerebrovascular accident) Status: Chronic Current Visit: No Cardiology - PN: Subj Interval history: PRIMARY PHARMACY TECHNICIAN INSTRUCTOR: DR. JOSE RUFF Mr. Boo continues to be intubated and sedated in the ICU this morning. Appears comfortable at this time. According to nursing reports, he is responsive and able to follow commands when sedation is held, but he does experience quite a bit of agitation and anxiety. CPAP trials have not been initiated yet. He appears to have converted from atrial fibrillation to a sinus rhythm with pulse rate in the 70s this morning. BP is stable and has not required vasopressor support. Treatment for pneumonia continues, and chest x- ray today with worsening of airspace disease in left lung. BMP results pending. Exam (Progress Note) - Constitutional Vitals: Period Temp Pulse Resp BP Sys/Chen Pulse Ox Last 24 Hr 97.4 F-99.4 F 69-99 12-28 109-156/40-75 93-100 Exam: General appearance: no distress. Other: intubated and sedated with mechanical ventilation - Head Head exam: Present: normal inspection, normocephalic. Absent: laceration, hematoma - Eye Eye exam: Present: EOMI. Absent: scleral icterus Pupils: Present: VIANCA. Absent: dilated, fixed - ENT ENT exam: Present: normal exam. - Neck Neck exam: Present: normal inspection. Absent: lymphadenopathy, thyromegaly, mass - Respiratory Respiratory exam: Present: left lung with some coarse rales and slight inspiratory wheeze, right lung clear to auscultation, there is normal rise and fall of the chest with ventilated breaths - Cardiovascular Cardiovascular exam: Present: regular rate and rhythm, Absent: gallop, systolic murmur, tachycardia, bradycardia, carotid bruit, JVD - GI/Abdominal GI/Abdominal exam: Present: normal bowel sounds, soft. Absent: organomegaly, tenderness, mass - Extremities Exam Extremities exam: Present: normal capillary refill. Absent: calf tenderness, edema, full ROM - Neurological Exam Neurological exam: Present: unable to assess this as he is currently sedated with mechanical ventilation. - Psychiatric Psychiatric exam: Present: Unable to adequately assess as he is intubated and sedated; he does appear comfortable with mechanical ventilation and does not appear to be anxious,agitated - Skin Skin exam: Present: warm, dry, intact. Absent: cyanosis, diaphoresis, rash, suspicious lesion Result/EKG - Labs CBC & BMP: 08/10/16 04:44 08/12/16 08:30 Lab Results: I have reviewed the past 24 hour labs Labs: Laboratory Results - last 24 hr 08/11/16 08/11/16 08/11/16 04:47 11:13 18:01 ABG pH ABG pCO2 ABG pO2 ABG HCO3 ABG Total CO2 ABG O2 Saturation ABG Base Excess FiO2 Sodium 139 Potassium 5.4 H Chloride 111 H Carbon Dioxide 22 Anion Gap 11.4 BUN 112 H Creatinine 1.60 H GFR Calculation 46 BUN/Creatinine Ratio 70.00 H Glucose 213 H POC Glucose 181 H 190 H Calculated Osmolality 318.5 H Calcium 7.3 L Magnesium 3.7 H Vancomycin Trough 08/11/16 08/11/16 08/12/16 22:35 23:57 03:25 ABG pH 7.303 L ABG pCO2 45.5 ABG pO2 93.8 ABG HCO3 21.1 ABG Total CO2 20.5 L ABG O2 Saturation 96.5 ABG Base Excess -3.9 L FiO2 70.00 Sodium Potassium Chloride Carbon Dioxide Anion Gap BUN Creatinine GFR Calculation BUN/Creatinine Ratio Glucose POC Glucose 244 H Calculated Osmolality Calcium Magnesium Vancomycin Trough 21.2 H 08/12/16 05:37 ABG pH ABG pCO2 ABG pO2 ABG HCO3 ABG Total CO2 ABG O2 Saturation ABG Base Excess FiO2 Sodium Potassium Chloride Carbon Dioxide Anion Gap BUN Creatinine GFR Calculation BUN/Creatinine Ratio Glucose POC Glucose 180 H Calculated Osmolality Calcium Magnesium Vancomycin Trough - Diagnostic Findings Procedure: Chest x-ray: image reviewed by me, report reviewed by me (08/12: worsening of left lung airspace disease) - EKG EKG results: interpreted by me EKG shows: sinus rhythm Specialty Discharge - Follow Up or Referrals Wayne Best Jennifer, MD, personally performed the services described in this documentation, ascribed by Yashira Condon RN in my presence, and it is both accurate and complete [id number] .
[2016-08-12] MEDS: DILTIAZEM 30 MG TABLET PO SCH ×2 (16:00→20:07)
[2016-08-12] MEDS: LEVOFLOXACIN INJ 500 MG in PREMIX 1 EACH IV SCH (18:30)
[2016-08-12] MEDS: ZOLPIDEM 5 MG PO SCH (20:04)
[2016-08-13] MEDS: MEROPENEM 1,000 MG in SODIUM CHLORIDE 0.9% 100 ML IV SCH ×3 (01:37→19:08)
[2016-08-13] MEDS: ALBUTEROL/IPRATROPIUM 3 ML NEB RESP TX SCH ×6 (02:35→23:51)
[2016-08-13 03:12] LABS: ABG Base Excess -3.3 MMOL/L (-2.5-2.5); ABG HCO3 21.7 MMOL/L (20-26); ABG Oxygen Saturation 99.5 % (95-100); ABG PCO2 45.2 MM HG (35-48); ABG PH 7.313 (7.35-7.45); Pt O2 Delivery Device Ventilator
[2016-08-13] MEDS: PROPOFOL 1,000 MG/100 ML BOTTLE IV SCH ×5 (03:43→21:35)
[2016-08-13 05:53] LABS: Basophils % 0.1 % (0.0-0.8); Hematocrit 31.3 VOL% (42.0-52.0); Hemoglobin 10.3 GM/DL (14.0-18.0); Immature Granulocytes % 4.7 %; Immature Granulocytes Absolute 0.99 #; Lymphocytes # 0.2 10*3/uL (1.4-4.0); Mean Corpuscular HGB Conc 32.9 GM/DL (32-36); Mean Corpuscular Hemoglobin 31 PG (27-34); Mean Corpuscular Volume 94.6 FL (87-102); Mean Platelet Volume 10.3 FL (9.6-12.0); Monocytes # 0.6 10*3/uL (0.11-0.8); Monocytes % 2.8 % (1.7-12.7); Neutrophils # 19.2 10*3/uL (1.4-7.4); Neutrophils % 91.4 % (38.7-73.9); Platelet Count 314 T/CUMM (130-400); Red Blood Count 3.31 MC/CUMM (3.8-5.5); Red Cell Distribution Width 14.8 % (9.3-17.3)
[2016-08-13] MEDS: INSULIN REGULAR 100 UNIT/ML SUBCUT SCH ×3 (06:04→19:06)
[2016-08-13] MEDS: methylPREDNISolone SOD SUC 40 MG/1 ML VIAL IV SCH ×3 (06:04→21:19)
--- NOTE | 2016-08-13 06:14 | XRay Report ---
XR chest 1V portable Indication: Pneumonia Comparison: Chest x-ray 08/12/2016 Technique: Portable AP chest was performed. Findings: Improved appearance of the left lung is demonstrated and improvement in the right upper lung is demonstrated. Multiple tubes and medical support devices appear stable. Chest is otherwise unchanged. Impression: 1. Interval partial clearing of lung parenchyma is demonstrated bilaterally. 08/13/2016 6:11 AM PROCEDURE INTERPRETED AT [facility] DEPARTMENT OF RADIOLOGY Final Report Signed by: Dr. Johann Manzo
[2016-08-13 06:27] LABS: Band Neutrophils 1 % (0-10); Lymphocytes 4 % (20-55); Segmented Neutrophils 92 % (50-85); Total Cells Counted 100
[2016-08-13 06:28] LABS: Hypochromasia 1+; Macrocytosis Slight; Platelet Estimate Adequate
[2016-08-13 07:01] LABS: Calcium 7.8 MG/DL (8.5-10.1); Magnesium 4.1 MG/DL (1.8-2.4); Osmolality,Calculated 333.7 MOS/KG (273-304)
--- NOTE | 2016-08-13 07:19 | Pulmonology Progress Note ---
Pulmonary - PN: Subj Interval history: Patient is an 81-year-old that has coronary artery disease and COPD. He came in with left-sided chest pleurisy and shortness of breath and has a left upper lobe pneumonia. His cultures have grown pneumococcal pneumonia. Over the weekend he had more respiratory distress and had to be intubated. He did develop more right upper lobe pneumonia also. His lung compliance is stable. He has had a fairly good night and his oxygenation is much improved now. His chest x-ray also is much better. Overall he is quite stable and will start weaning. Exam (Progress Note) - Constitutional Vitals: Period Temp Pulse Resp BP Sys/Chen Pulse Ox Last 24 Hr 97.4 F-98.4 F 59-87 14-16 97-168/43-105 96-100 Exam: General appearance: no distress (The patient is sedated on the ventilator now. He does have stable vital signs at present.) - Head Head exam: Present: normal inspection, normocephalic - Eye Eye exam: Present: EOMI. Absent: scleral icterus Pupils: Present: NEVILLE - ENT ENT exam: Present: normal exam, ET tube is in good position - Neck Neck exam: Present: normal inspection. Absent: lymphadenopathy, thyromegaly - Respiratory Respiratory exam: Present: Patient has good breath sounds bilaterally and his lungs are clearer with less rhonchi. - Cardiovascular Cardiovascular exam: Present: regular rate and rhythm, he is back in a sinus rhythm.. Absent: gallop, systolic murmur - GI/Abdominal GI/Abdominal exam: Present: normal bowel sounds, soft. Absent: organomegaly, tenderness - Extremities Exam Extremities exam: Absent: calf tenderness, edema - Neurological Exam Neurological exam: Present: He is sedated now on the ventilator. - Psychiatric Psychiatric exam: Present: He looks comfortable at present. - Skin Skin exam: Present: warm, dry Results - Labs CBC & BMP: 08/13/16 05:39 08/13/16 05:39 Labs: His PO2 is 258 with a PCO2 of 45 and a pH of 7.3 - Diagnostic Findings Procedure: Chest x-ray: image reviewed by me, report reviewed by me (Chest x- ray looks much improved with less infiltrates.) Assessment and Plan (1) Pneumonia Status: Acute Assessment and plan: The patient comes in short of breath and has left-sided pleurisy. He has developed a left upper lobe pneumonia. Blood cultures positive for pneumococcus. He developed worsening respiratory failure and is on the ventilator. He has done fairly well on the ventilator last couple days and his chest x-ray is improved. His oxygenation is also improved. Will adjust his ventilator and start weaning. Current Visit: Yes Qualifiers: Pneumonia type: due to Pneumococcus Laterality: left Lung location: upper lobe of lung Qualified Code(s): J13 - Pneumonia due to Streptococcus pneumoniae (2) COPD exacerbation Status: Acute Assessment and plan: The patient has a component of COPD and will continue with treatment. His oxygenation is better on the ventilator. His chest x-ray is also much better Current Visit: Yes (3) Renal insufficiency Status: Acute Assessment and plan: Patient's creatinine is 1.5 and stable. Current Visit: Yes (4) Coronary artery disease Status: Acute Assessment and plan: Patient has known coronary artery disease with previous stents. His chest pain sounds like pleurisy however. Current Visit: No (5) Acute respiratory failure with hypoxemia Status: Acute Assessment and plan: The patient had more respiratory distress over the weekend and is developed more hypoxemia. He had to be intubated and is now stable on the ventilator. He has been doing better each day and now his chest x-ray is clearing. His oxygenation is much improved. Will start weaning. Current Visit: Yes Specialty Discharge - Follow Up or Referrals
[2016-08-13] MEDS: LACTULOSE 20 GM/30 ML UDCUP PO SCH (08:56)
[2016-08-13] MEDS: POLYETHYLENE GLYCOL POWDER 17 GM PACK PO SCH (08:58)
[2016-08-13] MEDS ORDERED: SODIUM POLYSTYRENE SULFATE 15 GM/60 ML BOTTLE PO ONE (09:00)
[2016-08-13] MEDS: CLOPIDOGREL 75 MG TABLET PER TUBE SCH (09:09)
[2016-08-13] MEDS: ASPIRIN EC 81 MG TABLET PO SCH (09:09)
[2016-08-13] MEDS: BUTALBITAL/ACETAMIN/CAFFEINE 50-325-40 MG TABLET PER TUBE SCH ×2 (09:09→21:18)
[2016-08-13] MEDS: METOPROLOL TARTRATE 50 MG TABLET PER TUBE SCH ×2 (09:10→21:17)
[2016-08-13] MEDS: AMIODARONE 200 MG TABLET PER TUBE SCH ×3 (09:10→21:17)
[2016-08-13] MEDS: ENOXAPARIN 80 MG/0.8 ML SYRINGE SUBCUT SCH ×2 (09:11→21:18)
[2016-08-13] MEDS: PANTOPRAZOLE 40 MG VIAL IV SCH ×2 (09:11→21:33)
--- NOTE | 2016-08-13 10:15 | Hospitalist Progress Note ---
Assessment and Plan (1) COPD (chronic obstructive pulmonary disease) Status: Acute Assessment and plan: As per pulmonary. Current Visit: No (2) Pneumonia Status: Acute Assessment and plan: He continues on intravenous levofloxacin, meropenem, and vancomycin, as per pulmonary. Current Visit: Yes Qualifiers: Pneumonia type: due to Pneumococcus Laterality: left Lung location: upper lobe of lung Qualified Code(s): J13 - Pneumonia due to Streptococcus pneumoniae (3) Acute renal insufficiency Status: Acute Assessment and plan: His BUN and creatinine today are 125 and 1.5. His potassium is 6.0. Current Visit: Yes (4) Acute respiratory failure with hypoxemia Status: Acute Assessment and plan: Arterial blood gases are pH 7.313, PCO2 45.2, PO2 258.0, and arterial oxygen saturation 99.5%. He continues on assisted ventilation as per pulmonary. Pulmonary has initiated weaning and hopes to start CPAP trials this afternoon. Current Visit: Yes (5) Atrial fibrillation with RVR Status: Acute Assessment and plan: His heart rate is adequately controlled at the present time at 85/min. Continues on intravenous metoprolol as per cardiology. Current Visit: Yes Hospitalist: Subjective Interval history: Mr. Mcconnell is an 81-year-old white male with coronary artery disease, paroxysmal atrial fibrillation, and chronic obstructive pulmonary disease. Was hospitalized here with a left upper lobe pneumonia and acute respiratory failure. Cultures have demonstrated the pneumonia be due to pneumococcus. He is presently being treated with levofloxacin, meropenem, and vancomycin. He is being followed by Dr. Poole of pulmonary and Dr. Black of cardiology. Is gradually being weaned from the ventilator. Pulmonary plans to initiate CPAP trials this afternoon. Exam - Constitutional Vitals: Period Temp Pulse Resp BP Sys/Chen Pulse Ox Last 24 Hr 97.4 F-98.4 F 61-99 14-20 102-168/48-105 96-100 General appearance: other (Intubated on assisted ventilation.) - Head Head exam: Present: normal inspection, normocephalic - Eye Eye exam: Present: EOMI Pupils: Present: NEVILLE - Neck Neck exam: Present: normal inspection - Respiratory Respiratory exam: Present: clear to auscultation bilaterally - Cardiovascular Cardiovascular exam: Present: regular rate and rhythm - GI/Abdominal GI/Abdominal exam: Present: normal bowel sounds, soft - Extremities Exam Extremities exam: Present: normal inspection - Neurological Exam Neurological exam: Present: other (Sedated.) - Skin Skin exam: Present: normal color, warm, dry Results - Labs CBC & BMP: 08/13/16 05:39 08/13/16 05:39 Specialty Discharge - Follow Up or Referrals
[2016-08-13] MEDS: DILTIAZEM 30 MG TABLET PO SCH ×3 (12:17→21:17)
--- NOTE | 2016-08-13 17:03 | Cardiology Progress Note ---
Taurus Best Vanessa, RN, am scribing for, and in the presence of, Phyllis Black MD 17:03. Assessment and Plan - Time spent with patient Time spent with patient: Greater than 30 minutes (1) Acute respiratory failure with hypoxemia Status: Acute Assessment and plan: This is primarily managed per pulmonary. Clinically, his respiratory status has improved some, and CPAP trials are to be started this afternoon. Current Visit: Yes (2) Atrial fibrillation with RVR Status: Acute Assessment and plan: He remains in a sinus rhythm today, pulse rate in the 70s, without recurrence of atrial fibrillation or other sustained arrhythmia. Continue antiarrhythmic, beta-steven, and calcium channel steven. Continue to monitor EKG, blood pressure, and pulse rate. Anticoagulated with Lovenox Current Visit: Yes (3) Acute renal insufficiency Status: Acute Assessment and plan: Continue holding Diovan. Creatinine with no significant change, and it has been 1.5 over the last couple days. Kayexalate 30 gm x 1 dose given earlier this morning. Current Visit: Yes (4) COPD exacerbation Status: Acute Assessment and plan: Defer primary management to pulmonology. Current Visit: Yes (5) Left ventricular hypertrophy by electrocardiogram Status: Chronic Current Visit: No (6) Pneumonia Status: Acute Assessment and plan: Defer primary management to hospital medicine and pulmonology. Current Visit: Yes Qualifiers: Pneumonia type: due to Pneumococcus Laterality: left Lung location: upper lobe of lung Qualified Code(s): J13 - Pneumonia due to Streptococcus pneumoniae (7) Essential hypertension Status: Chronic Assessment and plan: Blood pressure overall fairly well controlled at this time. Continue current medication regimen. Current Visit: No (8) Hx of coronary artery disease Status: Chronic Assessment and plan: No clinical findings for ACS at this time. Plavix has been continued. Current Visit: No (9) History of coronary artery stent placement Status: Chronic Assessment and plan: Plavix has been continued. Current Visit: No (10) History of CVA (cerebrovascular accident) Status: Chronic Current Visit: No Cardiology - PN: Subj Interval history: [employer]: DR. JOSE RUFF SUMMARY: Mr. Boo is an 81 year old white male with PMHx including known CAD with previous stenting and CABG in 2001. He also has a history of COPD and remote CVAs. He was admitted to the hospital on 08/05/16 with progressive shortness of breath, congestion, and was found to have a left-sided chest pleurisy and left upper lobe pneumonia. He did have acute respiratory failure and required intubation, and afterward developed right upper lobe pneumonia also. Blood cultures have been positive for pneumococcus, and he is receiving treatment for that. During the course of admission, patient has also developed atrial fibrillation with RVR. Yesterday, patient was noted to have spontaneously converted to normal sinus rhythm. Cardiology is consulted to assist in management of atrial fibrillation and anticoagulation. Patient remains intubated and sedated in the ICU this morning. Clinically, his respiratory status has improved enough that CPAP trials will be started today, and hopefully he will be able to be weaned from the ventilator soon. IV Cardizem was converted to p.o. Cardizem yesterday, and his blood pressure and pulse rate have tolerated this well. Sinus rhythm with pulse rate in the 70s without overt ectopy or arrhythmia. Labs reviewed. H&H is stable. His hyperkalemia elevated today to 6.0, and he did receive 30 g Kayexalate earlier today. He is also hypermagnesemic with a potassium level of 4.1. Renal function is not significantly improved or worsened and creatinine is 1.5 with GFR of 50. Exam (Progress Note) - Constitutional Vitals: Period Temp Pulse Resp BP Sys/Chen Pulse Ox Last 24 Hr 97.4 F-98.4 F 64-99 14-20 119-176/53-105 96-100 Exam: General appearance: no distress. Other: intubated and sedated with mechanical ventilation - Head Head exam: Present: normal inspection, normocephalic. Absent: laceration, hematoma - Eye Eye exam: Present: EOMI. Absent: scleral icterus Pupils: Present: VIANCA. Absent: dilated, fixed - ENT ENT exam: Present: normal exam. - Neck Neck exam: Present: normal inspection. Absent: lymphadenopathy, thyromegaly, mass - Respiratory Respiratory exam: Present: Scattered rhonchi throughout, slight inspirational wheeze. There is normal rise and fall of the chest with ventilated breaths - Cardiovascular Cardiovascular exam: Present: regular rate and rhythm, Absent: gallop, systolic murmur, tachycardia, bradycardia, carotid bruit, JVD - GI/Abdominal GI/Abdominal exam: Present: normal bowel sounds, soft. Absent: organomegaly, tenderness, mass - Extremities Exam Extremities exam: Present: normal capillary refill. Absent: calf tenderness, edema, full ROM - Neurological Exam Neurological exam: Present: unable to assess this as he is currently sedated with mechanical ventilation. He does open his eyes today but does not interact or follow commands. - Psychiatric Psychiatric exam: Present: Unable to adequately assess as he is intubated and sedated; he does appear comfortable with mechanical ventilation and does not appear to be anxious,agitated - Skin Skin exam: Present: warm, dry, intact. Absent: cyanosis, diaphoresis, rash, suspicious lesion Result/EKG - Labs CBC & BMP: 08/13/16 05:39 08/13/16 05:39 Lab Results: I have reviewed the past 24 hour labs Labs: Laboratory Results - last 24 hr 08/12/16 08/12/16 08/13/16 17:50 23:34 03:00 WBC RBC Hgb Hct MCV MCH MCHC RDW Plt Count MPV Neut % (Auto) Lymph % (Auto) [place] % (Auto) Eos % (Auto) Baso % (Auto) Neut # (Auto) Lymph # (Auto) [place] # (Auto) Eos # (Auto) Baso # (Auto) Total Counted Immature Gran % Nucleated RBC % Immature Gran # Segmented Neutrophils Band Neutrophils Lymphocytes Monocytes Nucleated RBCs # Platelet Estimate Hypochromasia Macrocytosis Morphology Comment ABG pH 7.313 L ABG pCO2 45.2 ABG pO2 258.0 H ABG HCO3 21.7 ABG Total CO2 21.0 L ABG O2 Saturation 99.5 ABG Base Excess -3.3 L FiO2 70.00 Sodium Potassium Chloride Carbon Dioxide Anion Gap BUN Creatinine GFR Calculation BUN/Creatinine Ratio Glucose POC Glucose 138 H 206 H Calculated Osmolality Calcium Magnesium Prealbumin 08/13/16 08/13/16 08/13/16 05:39 05:39 05:39 WBC 21.0 H RBC 3.31 L Hgb 10.3 L Hct 31.3 L MCV 94.6 MCH 31 MCHC 32.9 RDW 14.8 Plt Count 314 D MPV 10.3 Neut % (Auto) 91.4 H Lymph % (Auto) 1.0 L [place] % (Auto) 2.8 Eos % (Auto) 0.0 Baso % (Auto) 0.1 Neut # (Auto) 19.2 H Lymph # (Auto) 0.2 L [place] # (Auto) 0.6 Eos # (Auto) 0.0 Baso # (Auto) 0.0 Total Counted 100 Immature Gran % 4.7 Nucleated RBC % 0.0 Immature Gran # 0.99 Segmented Neutrophils 92 H Band Neutrophils 1 Lymphocytes 4 L Monocytes 3 Nucleated RBCs # 0.00 Platelet Estimate Adequate Hypochromasia 1+ Macrocytosis Slight Morphology Comment ABG pH ABG pCO2 ABG pO2 ABG HCO3 ABG Total CO2 ABG O2 Saturation ABG Base Excess FiO2 Sodium 145 Potassium 6.0 H* Chloride 115 H Carbon Dioxide 23 Anion Gap 13.0 BUN 125 H Creatinine 1.50 H GFR Calculation 50 BUN/Creatinine Ratio 83.00 H Glucose 213 H POC Glucose Calculated Osmolality 333.7 H Calcium 7.8 L Magnesium 4.1 H Prealbumin 21.0 08/13/16 05:49 WBC RBC Hgb Hct MCV MCH MCHC RDW Plt Count MPV Neut % (Auto) Lymph % (Auto) [place] % (Auto) Eos % (Auto) Baso % (Auto) Neut # (Auto) Lymph # (Auto) [place] # (Auto) Eos # (Auto) Baso # (Auto) Total Counted Immature Gran % Nucleated RBC % Immature Gran # Segmented Neutrophils Band Neutrophils Lymphocytes Monocytes Nucleated RBCs # Platelet Estimate Hypochromasia Macrocytosis Morphology Comment ABG pH ABG pCO2 ABG pO2 ABG HCO3 ABG Total CO2 ABG O2 Saturation ABG Base Excess FiO2 Sodium Potassium Chloride Carbon Dioxide Anion Gap BUN Creatinine GFR Calculation BUN/Creatinine Ratio Glucose POC Glucose 193 H Calculated Osmolality Calcium Magnesium Prealbumin - Diagnostic Findings Procedure: Chest x-ray: image reviewed by me, report reviewed by me (08/13/16: improvement of left lung infiltrate and right upper lung) - EKG EKG results: interpreted by me EKG shows: sinus rhythm Specialty Discharge - Follow Up or Referrals Wayne Best Jennifer, MD, personally performed the services described in this documentation, ascribed by Yashira Condon RN in my presence, and it is both accurate and complete [id number] .
[2016-08-13] MEDS: LEVOFLOXACIN INJ 500 MG in PREMIX 1 EACH IV SCH (19:07)
[2016-08-13] MEDS: VANCOMYCIN INJ 1,000 MG in SODIUM CHLORIDE 0.9% 250 ML IV SCH (19:08)
[2016-08-13] MEDS: fentaNYL INJ 1,250 MCG in SODIUM CHLORIDE 0.9% 225 ML IV SCH ×2 (19:51→21:35)
[2016-08-13] MEDS: ZOLPIDEM 5 MG PO SCH (21:16)
[2016-08-14] MEDS: INSULIN REGULAR 100 UNIT/ML SUBCUT SCH ×4 (00:12→18:37)
[2016-08-14] MEDS: MEROPENEM 1,000 MG in SODIUM CHLORIDE 0.9% 100 ML IV SCH ×3 (02:10→18:00)
[2016-08-14] MEDS: ALBUTEROL/IPRATROPIUM 3 ML NEB RESP TX SCH ×6 (03:04→22:55)
[2016-08-14] MEDS: PROPOFOL 1,000 MG/100 ML BOTTLE IV SCH ×2 (03:08→09:56)
[2016-08-14 03:14] LABS: ABG Base Excess 1.3 MMOL/L (-2.5-2.5); ABG HCO3 25.7 MMOL/L (20-26); ABG Oxygen Saturation 98.7 % (95-100); ABG PCO2 39.6 MM HG (35-48); ABG PO2 184.9 MM HG (80-95); ABG TCO2 26.9 MMOL/L (23-27); Allen Test Positive; Pt O2 Delivery Device Ventilator
[2016-08-14] MEDS: methylPREDNISolone SOD SUC 40 MG/1 ML VIAL IV SCH ×3 (05:53→22:00)
--- NOTE | 2016-08-14 06:34 | XRay Report ---
XR chest 1V portable Indication: Shortness of breath Comparison: Chest x-ray 08/13/2016 Technique: Portable AP chest was performed. Findings: Multiple tubes and medical support devices appear stable. Interval partial clearing of the airspace opacification of the left lung base and mid mid left lung is suggested. Chest is otherwise stable. Impression: 1. Minimal improvement in the left lung is suggested. Chest is otherwise stable. 08/14/2016 6:31 AM PROCEDURE INTERPRETED AT [facility] DEPARTMENT OF RADIOLOGY Final Report Signed by: Dr. Johann Manzo
[2016-08-14 07:00] LABS: Basophils % 0.1 % (0.0-0.8); Hematocrit 29.5 VOL% (42.0-52.0); Hemoglobin 9.7 GM/DL (14.0-18.0); Immature Granulocytes % 4.2 %; Immature Granulocytes Absolute 0.61 #; Lymphocytes # 0.2 10*3/uL (1.4-4.0); Lymphocytes % 1.6 % (21.2-54.2); Mean Corpuscular HGB Conc 32.9 GM/DL (32-36); Mean Corpuscular Hemoglobin 31 PG (27-34); Mean Corpuscular Volume 94.9 FL (87-102); Mean Platelet Volume 10.3 FL (9.6-12.0); Monocytes # 0.7 10*3/uL (0.11-0.8); Monocytes % 4.7 % (1.7-12.7); Neutrophils # 13.1 10*3/uL (1.4-7.4); Neutrophils % 89.4 % (38.7-73.9); Platelet Count 307 T/CUMM (130-400); Red Blood Count 3.11 MC/CUMM (3.8-5.5); Red Cell Distribution Width 14.8 % (9.3-17.3); White Blood Count 14.6 T/CUMM (4-12)
[2016-08-14 07:23] LABS: Band Neutrophils 5 % (0-10); Hypochromasia Slight; Lymphocytes 1 % (20-55); Myelocytes 2 %; Platelet Estimate Adequate; Segmented Neutrophils 90 % (50-85); Target Cells Slight; Total Cells Counted 100
[2016-08-14 07:38] LABS: Calcium 7.9 MG/DL (8.5-10.1); Potassium 5.4 MMOL/L (3.5-5.1)
--- NOTE | 2016-08-14 08:12 | Pulmonology Progress Note ---
Pulmonary - PN: Subj Interval history: Patient is an 81-year-old that has coronary artery disease and COPD. He came in with left-sided chest pleurisy and shortness of breath and has a left upper lobe pneumonia. His cultures have grown pneumococcal pneumonia. Over the weekend he had more respiratory distress and had to be intubated. He did develop more right upper lobe pneumonia also. His lung compliance is stable. He has been doing better each day on the ventilator. He did do some CPAP trials yesterday. His oxygenation is much improved and his chest x-ray is much better. He should be able to come off the ventilator soon Exam (Progress Note) - Constitutional Vitals: Period Temp Pulse Resp BP Sys/Chen Pulse Ox Last 24 Hr 98.0 F-99.0 F 72-98 13-29 116-179/54-81 99-100 Exam: General appearance: no distress (The patient is sedated on the ventilator now. He does have stable vital signs at present. He does arouse okay) - Head Head exam: Present: normal inspection, normocephalic - Eye Eye exam: Present: EOMI. Absent: scleral icterus Pupils: Present: NEVILLE - ENT ENT exam: Present: normal exam, ET tube is in good position - Neck Neck exam: Present: normal inspection. Absent: lymphadenopathy, thyromegaly - Respiratory Respiratory exam: Present: Patient has good breath sounds bilaterally and his lungs are clearer and he is moving air well now. I do not hear any wheezing now. - Cardiovascular Cardiovascular exam: Present: regular rate and rhythm, he is back in a sinus rhythm.. Absent: gallop, systolic murmur - GI/Abdominal GI/Abdominal exam: Present: normal bowel sounds, soft. Absent: organomegaly, tenderness - Extremities Exam Extremities exam: Absent: calf tenderness, edema - Neurological Exam Neurological exam: Present: He is sedated now on the ventilator. - Psychiatric Psychiatric exam: Present: He looks comfortable at present. - Skin Skin exam: Present: warm, dry Results - Labs CBC & BMP: 08/14/16 05:23 08/14/16 05:23 Labs: The PO2 is 184 with a PCO2 of 39 and a pH of 7.43 - Diagnostic Findings Procedure: Chest x-ray: image reviewed by me, report reviewed by me (Chest x- ray shows minimal residual infiltrate on the left. His x-ray is much improved.) Assessment and Plan (1) Pneumonia Status: Acute Assessment and plan: The patient comes in short of breath and has left-sided pleurisy. He has developed a left upper lobe pneumonia. Blood cultures positive for pneumococcus. He developed worsening respiratory failure and is on the ventilator. He has done well with CPAP trials and his oxygenation and x-ray are much improved. We will try to extubate soon Current Visit: Yes Qualifiers: Qualified Code(s): J13 - Pneumonia due to Streptococcus pneumoniae (2) COPD exacerbation Status: Acute Assessment and plan: The patient has a component of COPD and will continue with treatment. His oxygenation is better on the ventilator. His chest x-ray is also much better Current Visit: Yes (3) Renal insufficiency Status: Acute Assessment and plan: Patient's creatinine is 1.2 and stable. Current Visit: Yes (4) Coronary artery disease Status: Acute Assessment and plan: Patient has known coronary artery disease with previous stents. His chest pain sounds like pleurisy however. He is not in heart failure and he is hemodynamically stable Current Visit: No (5) Acute respiratory failure with hypoxemia Status: Acute Assessment and plan: The patient had more respiratory distress over the weekend and is developed more hypoxemia. He had to be intubated and is now stable on the ventilator. He has been doing better each day and now his chest x-ray is clearing. His chest x-ray looks much better and his oxygenation is much improved. We will try to wean from the ventilator fairly quickly. Current Visit: Yes Specialty Discharge - Follow Up or Referrals
[2016-08-14] MEDS: METOPROLOL TARTRATE 50 MG TABLET PER TUBE SCH ×2 (08:45→20:24)
[2016-08-14] MEDS: ASPIRIN EC 81 MG TABLET PO SCH (08:45)
[2016-08-14] MEDS: CLOPIDOGREL 75 MG TABLET PER TUBE SCH (08:45)
[2016-08-14] MEDS: DILTIAZEM 30 MG TABLET PO SCH ×3 (08:46→20:25)
[2016-08-14] MEDS: AMIODARONE 200 MG TABLET PER TUBE SCH ×3 (08:46→20:25)
[2016-08-14] MEDS: POLYETHYLENE GLYCOL POWDER 17 GM PACK PO SCH (08:47)
[2016-08-14] MEDS: BUTALBITAL/ACETAMIN/CAFFEINE 50-325-40 MG TABLET PER TUBE SCH ×2 (08:47→20:25)
[2016-08-14] MEDS: LACTULOSE 20 GM/30 ML UDCUP PO SCH (08:47)
[2016-08-14] MEDS: ENOXAPARIN 80 MG/0.8 ML SYRINGE SUBCUT SCH ×2 (08:49→20:24)
[2016-08-14] MEDS: PANTOPRAZOLE 40 MG VIAL IV SCH ×2 (08:55→20:25)
[2016-08-14 09:02] LABS: Allen Test Positive; Pt O2 Delivery Device Ventilator
[2016-08-14 09:04] LABS: ABG HCO3 26.2 MMOL/L (20-26); ABG Oxygen Saturation 97.7 % (95-100); ABG PCO2 39.4 MM HG (35-48); ABG PH 7.432 (7.35-7.45); ABG PO2 99.7 MM HG (80-95); ABG TCO2 23.6 MMOL/L (23-27)
--- NOTE | 2016-08-14 10:16 | Hospitalist Progress Note ---
Assessment and Plan (1) COPD (chronic obstructive pulmonary disease) Status: Acute Assessment and plan: As per pulmonary. Current Visit: No (2) Pneumonia Status: Acute Assessment and plan: He continues on intravenous levofloxacin, meropenem, and vancomycin, as per pulmonary. Current Visit: Yes Qualifiers: Pneumonia type: due to Pneumococcus Laterality: left Lung location: upper lobe of lung Qualified Code(s): J13 - Pneumonia due to Streptococcus pneumoniae (3) Acute renal insufficiency Status: Acute Assessment and plan: His BUN and creatinine today are 111 and 1.2. His potassium is 5.4. Current Visit: Yes (4) Acute respiratory failure with hypoxemia Status: Acute Assessment and plan: Arterial blood gases are pH 7.430, PCO2 39.6, PO2 184.9, and arterial oxygen saturation 98.7%. He continues on assisted ventilation as per pulmonary. Pulmonary has initiated weaning and and CPAP trials. Current Visit: Yes (5) Atrial fibrillation with RVR Status: Acute Assessment and plan: His heart rate is adequately controlled at the present time at 85/min. Continues on intravenous metoprolol as per cardiology. He continues to be in normal sinus rhythm. Current Visit: Yes Hospitalist: Subjective Interval history: Mr. Mcconnell is an 81-year-old white male with coronary artery disease, paroxysmal atrial fibrillation, and chronic obstructive pulmonary disease. He was hospitalized here with a left upper lobe pneumonia and acute respiratory failure. Cultures of demonstrated the pneumonia be due to pneumococcus. He is presently being treated with levofloxacin meropenem and vancomycin. He has remained in normal sinus rhythm. He began CPAP trials yesterday which he tolerated well. He is presently being followed by Dr. Amador pulmonary and Dr. Black of cardiology. Exam - Constitutional Vitals: Period Temp Pulse Resp BP Sys/Chen Pulse Ox Last 24 Hr 98.0 F-99.0 F 72-98 13-29 116-179/54-76 98-100 General appearance: no acute distress, other (Intubated on ventilator.) - Head Head exam: Present: normal inspection, normocephalic - Eye Eye exam: Present: EOMI Pupils: Present: NEVILLE - Neck Neck exam: Present: normal inspection - Respiratory Respiratory exam: Present: clear to auscultation bilaterally - Cardiovascular Cardiovascular exam: Present: regular rate and rhythm - GI/Abdominal GI/Abdominal exam: Present: normal bowel sounds, soft - Extremities Exam Extremities exam: Present: normal inspection - Skin Skin exam: Present: normal color, warm, dry Results - Labs CBC & BMP: 08/14/16 05:23 08/14/16 05:23 Specialty Discharge - Follow Up or Referrals
[2016-08-14] MEDS: LORazepam 1 MG TABLET PER TUBE PRN (11:30)
[2016-08-14] MEDS: VANCOMYCIN INJ 1,000 MG in SODIUM CHLORIDE 0.9% 250 ML IV SCH (12:17)
[2016-08-14] MEDS: DESITIN 4OZ/NYSTATIN 15 GRAM MIXTURE PASTE TOP SCH ×2 (12:30→21:00)
[2016-08-14] MEDS: LORazepam 2 MG/1 ML VIAL IV PRN ×2 (13:41→16:04)
[2016-08-14] MEDS: fentaNYL INJ 1,250 MCG in SODIUM CHLORIDE 0.9% 225 ML IV SCH (14:46)
[2016-08-14] MEDS: MORPHINE 2 MG/1 ML SYRINGE IV PRN ×3 (15:05→21:15)
[2016-08-14] MEDS: LEVOFLOXACIN INJ 500 MG in PREMIX 1 EACH IV SCH (17:55)
--- NOTE | 2016-08-14 19:00 | Cardiology Progress Note ---
Taurus Best Vanessa, RN, am scribing for, and in the presence of, Phyllis Black MD 18:59. Assessment and Plan - Time spent with patient Time spent with patient: Greater than 30 minutes (1) Acute respiratory failure with hypoxemia Status: Acute Assessment and plan: This is primarily managed per pulmonary. Ventilator weaning was started yesterday evening, and patient tolerated this well. Current Visit: Yes (2) Atrial fibrillation with RVR Status: Acute Assessment and plan: No recurrence of atrial fibrillation with RVR or other sustained arrhythmia, he continues to maintain sinus rhythm. Continue antiarrhythmic, beta-steven, and calcium channel steven. Continue to monitor EKG, blood pressure, and pulse rate. Anticoagulated with Lovenox. Current Visit: Yes (3) Acute renal insufficiency Status: Acute Assessment and plan: Renal insufficiency continues to improve consecutively, and creatinine today is 1.2 with a GFR of 66. He does remain slightly hyperkalemic, but K+ is improved from 6.02 5.4 today after receiving Kayexalate dose yesterday. Current Visit: Yes (4) COPD exacerbation Status: Acute Assessment and plan: Defer primary management to pulmonology. Current Visit: Yes (5) Left ventricular hypertrophy by electrocardiogram Status: Chronic Current Visit: No (6) Pneumonia Status: Acute Assessment and plan: Defer primary management to hospital medicine and pulmonology. Current Visit: Yes Qualifiers: Pneumonia type: due to Pneumococcus Laterality: left Lung location: upper lobe of lung Qualified Code(s): J13 - Pneumonia due to Streptococcus pneumoniae (7) Essential hypertension Status: Chronic Assessment and plan: Blood pressure is suboptimally controlled. Will adjust medication regimen accordingly. Current Visit: No (8) Hx of coronary artery disease Status: Chronic Assessment and plan: No clinical findings for ACS at this time. Plavix has been continued. Current Visit: No (9) History of coronary artery stent placement Status: Chronic Assessment and plan: Plavix has been continued. Current Visit: No (10) History of CVA (cerebrovascular accident) Status: Chronic Current Visit: No Cardiology - PN: Subj Interval history: PRIMARY INDUSTRIAL ORDER CLERK: DR. JOSE RUFF SUMMARY: Mr. Boo is an 81 year old white male with PMHx including known CAD with previous stenting and CABG in 2001. He also has a history of COPD and remote CVAs. He was admitted to the hospital on 08/05/16 with progressive shortness of breath, congestion, and was found to have a left-sided chest pleurisy and left upper lobe pneumonia. He did have acute respiratory failure and required intubation, and afterward developed right upper lobe pneumonia also. Blood cultures have been positive for pneumococcus, and he is receiving treatment for that. During the course of admission, patient has also developed atrial fibrillation with RVR. Yesterday, patient was noted to have spontaneously converted to normal sinus rhythm. Cardiology is consulted to assist in management of atrial fibrillation and anticoagulation. Patient is resting quietly and appears comfortable on the ventilator. He was started on CPAP trial yesterday evening, and he tolerated this well. There have been no acute changes or findings in patient's hemodynamic status overnight. Remains in a sinus rhythm with pulse rate 70s-80s without recurrence of atrial fibrillation or other sustained arrhythmia. Systolic BP range 150-170 mmHg. Labs reviewed. White blood cell count 14,600 (improved). H&H is 9.7 and 29.5. Sodium 150, potassium is 5.4 (6.0 previously). Creatinine is 1.2 with a GFR of 66. Exam (Progress Note) - Constitutional Vitals: Period Temp Pulse Resp BP Sys/Chen Pulse Ox Last 24 Hr 98.0 F-99.0 F 72-99 13-29 116-179/54-81 99-100 Exam: General appearance: no distress. Other: intubated and sedated with mechanical ventilation - Head Head exam: Present: normal inspection, normocephalic. Absent: laceration, hematoma - Eye Eye exam: Present: EOMI. Absent: scleral icterus Pupils: Present: VIANCA. Absent: dilated, fixed - ENT ENT exam: Present: normal exam. ET tube is intact. - Neck Neck exam: Present: normal inspection. Absent: lymphadenopathy, thyromegaly, mass - Respiratory Respiratory exam: Present: Minimal rhonchi throughout and improved from yesterday's exam. There is normal rise and fall of the chest with ventilated breaths - Cardiovascular Cardiovascular exam: Present: regular rate and rhythm, Absent: gallop, systolic murmur, tachycardia, bradycardia, carotid bruit, JVD - GI/Abdominal GI/Abdominal exam: Present: normal bowel sounds, soft. Absent: organomegaly, tenderness, mass - Extremities Exam Extremities exam: Present: normal capillary refill. Absent: calf tenderness, edema, full ROM - Neurological Exam Neurological exam: Present: unable to assess this as he is currently sedated with mechanical ventilation. Weakly attempts to open eyes and attempts to move head toward verbal stimuli. - Psychiatric Psychiatric exam: Present: Unable to adequately assess as he is intubated and sedated; he does appear comfortable with mechanical ventilation and does not appear to be anxious,agitated - Skin Skin exam: Present: warm, dry, intact. Absent: cyanosis, diaphoresis, rash, suspicious lesion. Other: Ecchymotic bruising to bilateral upper extremities Result/EKG - Labs CBC & BMP: 08/14/16 05:23 08/14/16 05:23 Lab Results: I have reviewed the past 24 hour labs Labs: Laboratory Results - last 24 hr 08/13/16 08/13/16 08/13/16 11:30 16:46 17:41 WBC RBC Hgb Hct MCV MCH MCHC RDW Plt Count MPV Neut % (Auto) Lymph % (Auto) [place] % (Auto) Eos % (Auto) Baso % (Auto) Neut # (Auto) Lymph # (Auto) [place] # (Auto) Eos # (Auto) Baso # (Auto) Total Counted Immature Gran % Nucleated RBC % Immature Gran # Segmented Neutrophils Band Neutrophils Lymphocytes Monocytes Myelocytes Nucleated RBCs # Platelet Estimate Hypochromasia Target Cells ABG pH ABG pCO2 ABG pO2 ABG HCO3 ABG Total CO2 ABG O2 Saturation ABG Base Excess FiO2 Sodium Potassium 5.3 H Chloride Carbon Dioxide Anion Gap BUN Creatinine GFR Calculation BUN/Creatinine Ratio Glucose POC Glucose 232 H Calculated Osmolality Calcium Vancomycin Trough 19.9 08/13/16 08/13/16 08/14/16 18:15 23:37 03:02 WBC RBC Hgb Hct MCV MCH MCHC RDW Plt Count MPV Neut % (Auto) Lymph % (Auto) [place] % (Auto) Eos % (Auto) Baso % (Auto) Neut # (Auto) Lymph # (Auto) [place] # (Auto) Eos # (Auto) Baso # (Auto) Total Counted Immature Gran % Nucleated RBC % Immature Gran # Segmented Neutrophils Band Neutrophils Lymphocytes Monocytes Myelocytes Nucleated RBCs # Platelet Estimate Hypochromasia Target Cells ABG pH 7.430 ABG pCO2 39.6 ABG pO2 184.9 H ABG HCO3 25.7 ABG Total CO2 26.9 ABG O2 Saturation 98.7 ABG Base Excess 1.3 FiO2 50.00 Sodium Potassium Chloride Carbon Dioxide Anion Gap BUN Creatinine GFR Calculation BUN/Creatinine Ratio Glucose POC Glucose 207 H 201 H Calculated Osmolality Calcium Vancomycin Trough 08/14/16 08/14/16 08/14/16 05:23 05:23 05:32 WBC 14.6 H D RBC 3.11 L Hgb 9.7 L Hct 29.5 L MCV 94.9 MCH 31 MCHC 32.9 RDW 14.8 Plt Count 307 MPV 10.3 Neut % (Auto) 89.4 H Lymph % (Auto) 1.6 L [place] % (Auto) 4.7 Eos % (Auto) 0.0 Baso % (Auto) 0.1 Neut # (Auto) 13.1 H Lymph # (Auto) 0.2 L [place] # (Auto) 0.7 Eos # (Auto) 0.0 Baso # (Auto) 0.0 Total Counted 100 Immature Gran % 4.2 Nucleated RBC % 0.0 Immature Gran # 0.61 Segmented Neutrophils 90 H Band Neutrophils 5 Lymphocytes 1 L Monocytes 2 Myelocytes 2 Nucleated RBCs # 0.00 Platelet Estimate Adequate Hypochromasia Slight Target Cells Slight ABG pH ABG pCO2 ABG pO2 ABG HCO3 ABG Total CO2 ABG O2 Saturation ABG Base Excess FiO2 Sodium 150 H Potassium 5.4 H Chloride 118 H Carbon Dioxide 25 Anion Gap 12.4 BUN 111 H D Creatinine 1.20 GFR Calculation 66 BUN/Creatinine Ratio 92.00 H Glucose 198 H POC Glucose 175 H Calculated Osmolality 338.0 H Calcium 7.9 L Vancomycin Trough - Diagnostic Findings Procedure: Chest x-ray: image reviewed by me, report reviewed by me (08/14/16: Slight improvement in left lung base opacification and also left mid lung airspace.) - EKG EKG results: interpreted by me, no acute changes EKG shows: sinus rhythm (Pulse rate 70s-80s; no ectopy or arrhythmia) Specialty Discharge - Follow Up or Referrals Wayne Best Jennifer, MD, personally performed the services described in this documentation, ascribed by Yashira Condon RN in my presence, and it is both accurate and complete [id number] .
[2016-08-14] MEDS: ZOLPIDEM 5 MG PO SCH (21:00)
[2016-08-15] MEDS: INSULIN REGULAR 100 UNIT/ML SUBCUT SCH ×4 (00:30→18:41)
[2016-08-15] MEDS: LORazepam 2 MG/1 ML VIAL IV PRN ×2 (02:55→05:14)
[2016-08-15 03:14] LABS: ABG Base Excess 3.6 MMOL/L (-2.5-2.5); ABG HCO3 27.6 MMOL/L (20-26); ABG Oxygen Saturation 96.5 % (95-100); ABG PCO2 36.8 MM HG (35-48); ABG PH 7.477 (7.35-7.45); ABG PO2 84.4 MM HG (80-95); ABG TCO2 24.2 MMOL/L (23-27); Allen Test Positive
[2016-08-15] MEDS: ALBUTEROL/IPRATROPIUM 3 ML NEB RESP TX SCH ×6 (03:14→23:32)
[2016-08-15] MEDS: MEROPENEM 1,000 MG in SODIUM CHLORIDE 0.9% 100 ML IV SCH ×3 (03:46→19:15)
[2016-08-15 06:28] LABS: Basophils % 0.1 % (0.0-0.8); Hematocrit 28.8 VOL% (42.0-52.0); Hemoglobin 9.5 GM/DL (14.0-18.0); Immature Granulocytes % 3.2 %; Immature Granulocytes Absolute 0.52 #; Lymphocytes # 0.7 10*3/uL (1.4-4.0); Lymphocytes % 4.2 % (21.2-54.2); Mean Corpuscular Hemoglobin 31 PG (27-34); Mean Corpuscular Volume 93.5 FL (87-102); Mean Platelet Volume 10.4 FL (9.6-12.0); Monocytes % 6.4 % (1.7-12.7); Neutrophils # 13.8 10*3/uL (1.4-7.4); Neutrophils % 86.1 % (38.7-73.9); Platelet Count 302 T/CUMM (130-400); Red Blood Count 3.08 MC/CUMM (3.8-5.5); Red Cell Distribution Width 14.7 % (9.3-17.3); White Blood Count 16.1 T/CUMM (4-12)
--- NOTE | 2016-08-15 06:37 | Pulmonology Progress Note ---
Pulmonary - PN: Subj Interval history: This 81-year-old man has COPD and pneumococcal pneumonia. He was ventilated but was extubated yesterday. He is able to answer questions today is arterial blood gases look okay. Voice is still a little hoarse. Exam (Progress Note) - Constitutional Vitals: Period Temp Pulse Resp BP Sys/Chen Pulse Ox Last 24 Hr 98.4 F-100.2 F 67-107 1-29 126-188/48-88 94-100 Exam: Vital signs normal. Pupils react to light. Throat clear. Neck supple no bruits. Chest shows a few expiratory rhonchi. He is not tight. Heart normal rate rhythm no murmurs. Abdomen soft no masses. Extremities no clubbing cyanosis edema. Calves nontender. Results - Labs CBC & BMP: 08/14/16 05:23 08/14/16 05:23 Lab Results: I have reviewed the past 24 hour labs Assessment and Plan (1) COPD (chronic obstructive pulmonary disease) Status: Acute Assessment and plan: Continuing steroids antibiotics and bronchodilators. ABGs look good post extubation. Current Visit: No (2) Acute respiratory failure with hypoxemia Status: Acute Assessment and plan: ABGs look okay on 4 L nasal oxygen. Current Visit: Yes (3) History of coronary artery stent placement Status: Chronic Assessment and plan: No signs of heart failure and no chest pain at present. Current Visit: No (4) History of CVA (cerebrovascular accident) Status: Chronic Assessment and plan: His speech is a little slow but he does answer questions Current Visit: No (5) Pneumonia Status: Acute Assessment and plan: Has positive blood cultures for pneumococcus. On appropriate antibiotics. Levaquin and Merrem cover Current Visit: Yes Qualifiers: Pneumonia type: due to Pneumococcus Laterality: left Lung location: upper lobe of lung Qualified Code(s): J13 - Pneumonia due to Streptococcus pneumoniae Specialty Discharge - Follow Up or Referrals
[2016-08-15 06:58] LABS: Band Neutrophils 1 % (0-10); Calcium 8.1 MG/DL (8.5-10.1); Hypochromasia 1+; Lymphocytes 6 % (20-55); Osmolality,Calculated 328.7 MOS/KG (273-304); Ovalocytes Slight; Platelet Estimate Adequate; Potassium 4.9 MMOL/L (3.5-5.1); Segmented Neutrophils 86 % (50-85); Total Cells Counted 100
[2016-08-15] MEDS: methylPREDNISolone SOD SUC 40 MG/1 ML VIAL IV SCH ×3 (07:01→21:49)
[2016-08-15] MEDS: VANCOMYCIN INJ 1,000 MG in SODIUM CHLORIDE 0.9% 250 ML IV SCH ×2 (07:01→23:55)
[2016-08-15 07:07] LABS: Calcium 8.2 MG/DL (8.5-10.1); Osmolality,Calculated 327.7 MOS/KG (273-304)
[2016-08-15] MEDS: LORazepam 1 MG TABLET PER TUBE PRN ×2 (08:55→21:00)
[2016-08-15] MEDS: PANTOPRAZOLE 40 MG VIAL IV SCH ×2 (08:58→21:49)
[2016-08-15] MEDS: ASPIRIN EC 81 MG TABLET PO SCH (09:02)
[2016-08-15] MEDS: CLOPIDOGREL 75 MG TABLET PER TUBE SCH (09:02)
[2016-08-15] MEDS: BUTALBITAL/ACETAMIN/CAFFEINE 50-325-40 MG TABLET PER TUBE SCH ×2 (09:02→21:49)
[2016-08-15] MEDS: DILTIAZEM 30 MG TABLET PO SCH ×3 (09:02→21:48)
[2016-08-15] MEDS: AMIODARONE 200 MG TABLET PER TUBE SCH ×3 (09:03→21:49)
[2016-08-15] MEDS: POLYETHYLENE GLYCOL POWDER 17 GM PACK PO SCH (09:04)
[2016-08-15] MEDS: ENOXAPARIN 80 MG/0.8 ML SYRINGE SUBCUT SCH ×2 (09:04→21:49)
[2016-08-15] MEDS: LACTULOSE 20 GM/30 ML UDCUP PO SCH (09:04)
[2016-08-15] MEDS: METOPROLOL TARTRATE 50 MG TABLET PER TUBE SCH ×2 (09:04→21:49)
[2016-08-15] MEDS: DESITIN 4OZ/NYSTATIN 15 GRAM MIXTURE PASTE TOP SCH ×2 (09:15→21:49)
--- NOTE | 2016-08-15 10:55 | Hospitalist Progress Note ---
Assessment and Plan (1) COPD (chronic obstructive pulmonary disease) Status: Acute Assessment and plan: As per pulmonary. Current Visit: No (2) Pneumonia Status: Acute Assessment and plan: He continues on intravenous levofloxacin, meropenem, and vancomycin, as per pulmonary. Current Visit: Yes Qualifiers: Pneumonia type: due to Pneumococcus Laterality: left Lung location: upper lobe of lung Qualified Code(s): J13 - Pneumonia due to Streptococcus pneumoniae (3) Acute renal insufficiency Status: Acute Assessment and plan: His BUN and creatinine today are 82 and 1.0. His potassium is 5.0. Current Visit: Yes (4) Acute respiratory failure with hypoxemia Status: Acute Assessment and plan: He is doing well post extubation. His arterial blood gases post extubation are pH 7.477, PCO2 36.8, PCO2 84.4, and arterial oxygen saturation 96.5%. Current Visit: Yes (5) Atrial fibrillation with RVR Status: Acute Assessment and plan: His heart rate is adequately controlled at the present time at 85/min. Continues on intravenous metoprolol as per cardiology. He continues to be in normal sinus rhythm. Current Visit: Yes Hospitalist: Subjective Interval history: Mr. Mcconnell is an 81-year-old white male with coronary artery disease, paroxysmal atrial fibrillation, and chronic obstructive pulmonary disease. Was hospitalized here with a left upper lobe pneumonia and acute respiratory failure. Cultures demonstrated the pneumonia to be due to pneumococcus. He is presently being treated with intravenous levofloxacin, meropenem, and vancomycin. He is remained in normal sinus rhythm. He was successfully extubated yesterday. Is generally doing well today. Exam - Constitutional Vitals: Period Temp Pulse Resp BP Sys/Chen Pulse Ox Last 24 Hr 98.4 F-100.1 F 73-108 10-30 126-188/54-84 94-100 General appearance: no acute distress - Head Head exam: Present: normal inspection, normocephalic - Eye Eye exam: Present: EOMI Pupils: Present: NEVIL[place] - Neck Neck exam: Present: normal inspection - Respiratory Respiratory exam: Present: clear to auscultation bilaterally - Cardiovascular Cardiovascular exam: Present: regular rate and rhythm - GI/Abdominal GI/Abdominal exam: Present: normal bowel sounds, soft, other (Nontender with no palpable masses or hepatosplenomegaly.) - Extremities Exam Extremities exam: Present: normal inspection - Neurological Exam Neurological exam: Present: alert - Skin Skin exam: Present: normal color, warm, dry Results - Labs CBC & BMP: 08/15/16 04:34 08/15/16 04:34 Specialty Discharge - Follow Up or Referrals
[2016-08-15] MEDS ORDERED: ALBUTEROL 2.5 MG/3 ML NEB RESP TX PRN (12:32)
[2016-08-15] MEDS: MORPHINE 2 MG/1 ML SYRINGE IV PRN (17:00)
[2016-08-15] MEDS: LEVOFLOXACIN INJ 500 MG in PREMIX 1 EACH IV SCH (18:26)
[2016-08-16] MEDS: LORazepam 1 MG TABLET PER TUBE PRN ×3 (03:00→21:23)
[2016-08-16] MEDS: ALBUTEROL/IPRATROPIUM 3 ML NEB RESP TX SCH ×6 (03:12→23:50)
[2016-08-16 03:30] LABS: ABG Base Excess 2.6 MMOL/L (-2.5-2.5); ABG HCO3 26.7 MMOL/L (20-26); ABG Oxygen Saturation 96.2 % (95-100); ABG PCO2 30.4 MM HG (35-48); ABG PO2 81.8 MM HG (80-95); ABG TCO2 22.2 MMOL/L (23-27); Allen Test Positive
[2016-08-16] MEDS: INSULIN REGULAR 100 UNIT/ML SUBCUT SCH ×4 (03:56→18:30)
[2016-08-16] MEDS: MEROPENEM 1,000 MG in SODIUM CHLORIDE 0.9% 100 ML IV SCH ×3 (03:56→18:05)
[2016-08-16 05:55] LABS: Hematocrit 25.7 VOL% (42.0-52.0); Immature Granulocytes Absolute 0.22 #; Lymphocytes # 0.3 10*3/uL (1.4-4.0); Lymphocytes % 3.1 % (21.2-54.2); Mean Corpuscular HGB Conc 31.5 GM/DL (32-36); Mean Corpuscular Hemoglobin 31 PG (27-34); Mean Platelet Volume 11.3 FL (9.6-12.0); Monocytes # 0.8 10*3/uL (0.11-0.8); Monocytes % 7.5 % (1.7-12.7); Neutrophils # 9.5 10*3/uL (1.4-7.4); Neutrophils % 87.4 % (38.7-73.9); Platelet Count 208 T/CUMM (130-400); Red Blood Count 2.65 MC/CUMM (3.8-5.5); Red Cell Distribution Width 14.6 % (9.3-17.3); White Blood Count 10.9 T/CUMM (4-12)
[2016-08-16 05:56] LABS: Hemoglobin 8.1 GM/DL (14.0-18.0)
[2016-08-16] MEDS: methylPREDNISolone SOD SUC 40 MG/1 ML VIAL IV SCH ×3 (06:04→21:44)
[2016-08-16 06:12] LABS: Calcium 7.7 MG/DL (8.5-10.1); Magnesium 2.3 MG/DL (1.8-2.4); Osmolality,Calculated 322.7 MOS/KG (273-304); Potassium 4.7 MMOL/L (3.5-5.1)
[2016-08-16 06:47] LABS: Hypochromasia 1+; Lymphocytes 1 % (20-55); Platelet Estimate Adequate; Segmented Neutrophils 93 % (50-85); Total Cells Counted 100
--- NOTE | 2016-08-16 08:13 | Hospitalist Progress Note ---
Assessment and Plan (1) COPD (chronic obstructive pulmonary disease) Status: Acute Assessment and plan: As per pulmonary.He continues to be treated with intravenous methylprednisolone , intravenous antibiotics, and albuterol ipratropium nebulizer treatments. Current Visit: No (2) Pneumonia Status: Acute Assessment and plan: He continues on intravenous levofloxacin, meropenem, and vancomycin, as per pulmonary.Today is day 12 of levofloxacin. I will discontinue that medication. Current Visit: Yes Qualifiers: Pneumonia type: due to Pneumococcus Laterality: left Lung location: upper lobe of lung Qualified Code(s): J13 - Pneumonia due to Streptococcus pneumoniae (3) Acute renal insufficiency Status: Acute Assessment and plan: His BUN and creatinine today are 62 and 1.1. His potassium is 4.7. Current Visit: Yes (4) Acute respiratory failure with hypoxemia Status: Acute Assessment and plan: He is doing well. His arterial blood gases today are pH 7.520, PCO2 30.4, PCO2 81.8, and arterial oxygen saturation 96.2%. Current Visit: Yes (5) Atrial fibrillation with RVR Status: Acute Assessment and plan: He is in normal sinus rhythm.He is presently being treated with amiodarone, diltiazem, and metoprolol. Current Visit: Yes (6) Anemia Status: Acute Assessment and plan: His hematocrit and hemoglobin were 28.8 and 9.5 respectively yesterday. There are 25.7 and 8.1 respectively today. We will continue to monitor his CBC. Current Visit: Yes Qualifiers: Anemia type: unspecified type Qualified Code(s): D64.9 - Anemia, unspecified Hospitalist: Subjective Interval history: Mr. Mcconnell is an 81-year-old white male with coronary artery disease, paroxysmal atrial fibrillation, and chronic obstructive pulmonary disease. He was hospitalized here with a left upper lobe pneumonia and acute respiratory failure. He was intubated and placed on assisted ventilation. Cultures demonstrated the pneumonia to be due to pneumococcus. He was treated with intravenous levofloxacin, meropenem, and vancomycin. He has remained in normal sinus rhythm. He was successfully extubated 2 days ago and transferred from the ICU to the medical floor yesterday. He has been difficult to manage with requiring restraints. His states that he behaves similarly at home. He has no new complaints or problems today. Exam - Constitutional Vitals: Period Temp Pulse Resp BP Sys/Chen Pulse Ox Last 24 Hr 97.8 F-100.6 F 73-108 10-30 137-170/59-89 95-100 General appearance: no acute distress - Head Head exam: Present: normal inspection, normocephalic - Eye Pupils: Present: NEVILLE - Neck Neck exam: Present: normal inspection - Respiratory Respiratory exam: Present: clear to auscultation bilaterally - Cardiovascular Cardiovascular exam: Present: regular rate and rhythm - GI/Abdominal GI/Abdominal exam: Present: normal bowel sounds, soft, other (Nontender with no palpable masses or hepatosplenomegaly.) - Extremities Exam Extremities exam: Present: normal inspection - Back Exam Back exam: Present: normal inspection - Neurological Exam Neurological exam: Present: alert, oriented X3 - Psychiatric Psychiatric exam: Present: normal affect, normal mood - Skin Skin exam: Present: normal color, warm, dry Results - Labs CBC & BMP: 08/16/16 05:20 08/16/16 05:20 Specialty Discharge - Follow Up or Referrals
[2016-08-16] MEDS: PANTOPRAZOLE 40 MG VIAL IV SCH ×2 (09:45→21:23)
[2016-08-16] MEDS: BUTALBITAL/ACETAMIN/CAFFEINE 50-325-40 MG TABLET PER TUBE SCH ×2 (09:47→21:30)
[2016-08-16] MEDS: ENOXAPARIN 80 MG/0.8 ML SYRINGE SUBCUT SCH ×2 (09:47→21:23)
[2016-08-16] MEDS: ASPIRIN EC 81 MG TABLET PO SCH (09:48)
[2016-08-16] MEDS: AMIODARONE 200 MG TABLET PER TUBE SCH ×3 (09:48→21:23)
[2016-08-16] MEDS: CLOPIDOGREL 75 MG TABLET PER TUBE SCH (09:48)
[2016-08-16] MEDS: METOPROLOL TARTRATE 50 MG TABLET PER TUBE SCH ×2 (09:48→21:23)
[2016-08-16] MEDS: DILTIAZEM 30 MG TABLET PO SCH ×3 (09:48→21:22)
[2016-08-16] MEDS: POLYETHYLENE GLYCOL POWDER 17 GM PACK PO SCH (09:48)
[2016-08-16] MEDS: LACTULOSE 20 GM/30 ML UDCUP PO SCH (09:49)
[2016-08-16] MEDS: DESITIN 4OZ/NYSTATIN 15 GRAM MIXTURE PASTE TOP SCH ×2 (09:49→21:24)
--- NOTE | 2016-08-16 11:05 | Pulmonology Progress Note ---
Pulmonary - PN: Subj Interval history: This 81-year-old man has COPD and pneumococcal pneumonia. He was ventilated but was extubated yesterday. He is able to answer questions today is arterial blood gases look okay. Voice is still a little hoarse. 08/16/16 patient tolerating off the ventilator without difficulty. No new complaints. Exam (Progress Note) - Constitutional Vitals: Period Temp Pulse Resp BP Sys/Chen Pulse Ox Last 24 Hr 97.8 F-100.6 F 88-106 16-26 154-161/65-89 95-98 Exam: Vital signs normal. Pupils react to light. Throat clear. Neck supple no bruits. Chest shows a few expiratory rhonchi. He is not tight. Heart normal rate rhythm no murmurs. Abdomen soft no masses. Extremities no clubbing cyanosis edema. Calves nontender. Little change from yesterday. Results - Labs CBC & BMP: 08/16/16 05:20 08/16/16 05:20 Lab Results: I have reviewed the past 24 hour labs Assessment and Plan (1) COPD (chronic obstructive pulmonary disease) Status: Acute Assessment and plan: Continuing steroids antibiotics and bronchodilators. ABGs look good post extubation. 08/16/2016 continuing current medications. Oxygen saturation acceptable. Current Visit: No (2) Acute respiratory failure with hypoxemia Status: Acute Assessment and plan: ABGs look okay on 4 L nasal oxygen. 08/16/2016 continuing to wean oxygen as tolerated Current Visit: Yes (3) History of coronary artery stent placement Status: Chronic Assessment and plan: No signs of heart failure and no chest pain at present. Current Visit: No (4) History of CVA (cerebrovascular accident) Status: Chronic Assessment and plan: His speech is a little slow but he does answer questions 08/16/2016 no difficulty with speech today Current Visit: No (5) Pneumonia Status: Acute Assessment and plan: Has positive blood cultures for pneumococcus. On appropriate antibiotics. Levaquin and Merrem cover 08/16/2016 continuing antibiotics. Current Visit: Yes Qualifiers: Pneumonia type: due to Pneumococcus Laterality: left Lung location: upper lobe of lung Qualified Code(s): J13 - Pneumonia due to Streptococcus pneumoniae Specialty Discharge - Follow Up or Referrals
[2016-08-16] MEDS: VANCOMYCIN INJ 1,000 MG in SODIUM CHLORIDE 0.9% 250 ML IV SCH (21:24)
[2016-08-17] MEDS: INSULIN REGULAR 100 UNIT/ML SUBCUT SCH ×4 (00:45→19:11)
[2016-08-17] MEDS: MEROPENEM 1,000 MG in SODIUM CHLORIDE 0.9% 100 ML IV SCH ×3 (02:45→21:11)
[2016-08-17] MEDS: ALBUTEROL/IPRATROPIUM 3 ML NEB RESP TX SCH ×6 (03:28→23:53)
[2016-08-17] MEDS: methylPREDNISolone SOD SUC 40 MG/1 ML VIAL IV SCH ×2 (06:38→18:08)
[2016-08-17 07:07] LABS: Immature Granulocytes % 1.3 %; Immature Granulocytes Absolute 0.14 #; Lymphocytes # 0.4 10*3/uL (1.4-4.0); Lymphocytes % 3.5 % (21.2-54.2); Mean Corpuscular HGB Conc 33.3 GM/DL (32-36); Mean Corpuscular Hemoglobin 31 PG (27-34); Mean Corpuscular Volume 93.3 FL (87-102); Mean Platelet Volume 11.2 FL (9.6-12.0); Monocytes # 0.7 10*3/uL (0.11-0.8); Monocytes % 6.4 % (1.7-12.7); Neutrophils # 9.9 10*3/uL (1.4-7.4); Neutrophils % 88.8 % (38.7-73.9); Platelet Count 220 T/CUMM (130-400); Red Blood Count 2.25 MC/CUMM (3.8-5.5); Red Cell Distribution Width 14.4 % (9.3-17.3); White Blood Count 11.2 T/CUMM (4-12)
[2016-08-17 07:40] LABS: Calcium 7.7 MG/DL (8.5-10.1); Magnesium 2.1 MG/DL (1.8-2.4); Osmolality,Calculated 317.9 MOS/KG (273-304); Potassium 4.4 MMOL/L (3.5-5.1)
[2016-08-17 07:43] LABS: Phosphorous 4.2 MG/DL (2.5-4.9); Prealbumin 23.9 MG/DL (20-40)
[2016-08-17 07:48] LABS: Hypochromasia 2+; Lymphocytes 1 % (20-55); Microcytosis 1+; Platelet Estimate Adequate; Segmented Neutrophils 96 % (50-85); Total Cells Counted 100
[2016-08-17 08:49] LABS: Basophils % 0.1 % (0.0-0.8); Hematocrit 23.5 VOL% (42.0-52.0); Hemoglobin 7.7 GM/DL (14.0-18.0); Immature Granulocytes % 1.3 %; Immature Granulocytes Absolute 0.18 #; Lymphocytes # 0.4 10*3/uL (1.4-4.0); Lymphocytes % 2.7 % (21.2-54.2); Mean Corpuscular HGB Conc 32.8 GM/DL (32-36); Mean Corpuscular Hemoglobin 31 PG (27-34); Mean Corpuscular Volume 95.9 FL (87-102); Mean Platelet Volume 10.9 FL (9.6-12.0); Monocytes # 0.8 10*3/uL (0.11-0.8); Monocytes % 5.7 % (1.7-12.7); Neutrophils # 12.5 10*3/uL (1.4-7.4); Neutrophils % 90.2 % (38.7-73.9); Platelet Count 232 T/CUMM (130-400); Red Blood Count 2.45 MC/CUMM (3.8-5.5); Red Cell Distribution Width 14.2 % (9.3-17.3); White Blood Count 13.9 T/CUMM (4-12)
--- NOTE | 2016-08-17 09:13 | Pulmonology Progress Note ---
Pulmonary - PN: Subj Interval history: Patient is an 81-year-old that has coronary artery disease and COPD. He came in with left-sided chest pleurisy and shortness of breath and has a left upper lobe pneumonia. His cultures have grown pneumococcal pneumonia. Over the weekend he had more respiratory distress and had to be intubated. He did develop more right upper lobe pneumonia also. His lung compliance is stable. He has been doing better each day on the ventilator. He did do some CPAP trials yesterday. His oxygenation is much improved and his chest x-ray is much better. He was extubated Wednesday and has done well. Over the weekend his breathing has been doing well. He is complaining of a sore throat. He has been moved to a regular room and he has been down in the dumps. Otherwise he has been doing reasonably well. Exam (Progress Note) - Constitutional Vitals: Period Temp Pulse Resp BP Sys/Chen Pulse Ox Last 24 Hr 97 F-100.4 F 21-100 17-102 123-156/59-82 96-100 Exam: General appearance: no distress (The patient is awake and talking and in no distress. ) - Head Head exam: Present: normal inspection, normocephalic - Eye Eye exam: Present: EOMI. Absent: scleral icterus Pupils: Present: NEVILLE - ENT ENT exam: Present: normal exam, he still has an NG tube in place. - Neck Neck exam: Present: normal inspection. Absent: lymphadenopathy, thyromegaly - Respiratory Respiratory exam: Present: Patient has good breath sounds bilaterally and his lungs are clearer and he is moving air well now. I do not hear any wheezing now. - Cardiovascular Cardiovascular exam: Present: regular rate and rhythm, he is back in a sinus rhythm.. Absent: gallop, systolic murmur - GI/Abdominal GI/Abdominal exam: Present: normal bowel sounds, soft. Absent: organomegaly, tenderness - Extremities Exam Extremities exam: Absent: calf tenderness, edema - Neurological Exam Neurological exam: Present: He is moving everything fairly well. - Psychiatric Psychiatric exam: Present: He is somewhat depressed now. - Skin Skin exam: Present: warm, dry Results - Labs CBC & BMP: 08/17/16 08:33 08/17/16 05:43 Assessment and Plan (1) Pneumonia Status: Acute Assessment and plan: The patient comes in short of breath and has left-sided pleurisy. He has developed a left upper lobe pneumonia. Blood cultures positive for pneumococcus. He developed worsening respiratory failure and required ventilatory support. His pneumonia is much better now and is breathing comfortably now. Current Visit: Yes Qualifiers: Pneumonia type: due to Pneumococcus Laterality: left Lung location: upper lobe of lung Qualified Code(s): J13 - Pneumonia due to Streptococcus pneumoniae (2) COPD exacerbation Status: Acute Assessment and plan: The patient has a component of COPD and will continue with treatment. He will continue with bronchodilator therapy. Current Visit: Yes (3) Renal insufficiency Status: Acute Assessment and plan: Patient's creatinine is 0.9 and stable. Current Visit: Yes (4) Coronary artery disease Status: Acute Assessment and plan: Patient has known coronary artery disease with previous stents. His chest pain sounds like pleurisy however. He is not in heart failure and he is hemodynamically stable Current Visit: No (5) Acute respiratory failure with hypoxemia Status: Acute Assessment and plan: The patient had respiratory failure from pneumonia but is much better now. His breathing is much better. Will try to increase his activity. Current Visit: Yes Specialty Discharge - Follow Up or Referrals
[2016-08-17 09:19] LABS: Hypochromasia 1+
[2016-08-17 09:20] LABS: Microcytosis 1+; Platelet Estimate Normal
[2016-08-17] MEDS: PANTOPRAZOLE 40 MG VIAL IV SCH ×2 (10:19→21:09)
[2016-08-17] MEDS: VANCOMYCIN INJ 1,000 MG in SODIUM CHLORIDE 0.9% 250 ML IV SCH ×2 (10:22→21:25)
[2016-08-17] MEDS: LACTULOSE 20 GM/30 ML UDCUP PO SCH (10:28)
[2016-08-17] MEDS: CLOPIDOGREL 75 MG TABLET PER TUBE SCH ×2 (10:28→11:37)
[2016-08-17] MEDS: ASPIRIN EC 81 MG TABLET PO SCH (10:28)
[2016-08-17] MEDS: DILTIAZEM 30 MG TABLET PO SCH ×3 (10:28→21:10)
[2016-08-17] MEDS: BUTALBITAL/ACETAMIN/CAFFEINE 50-325-40 MG TABLET PER TUBE SCH ×3 (10:28→21:10)
[2016-08-17] MEDS: METOPROLOL TARTRATE 50 MG TABLET PER TUBE SCH ×2 (10:28→21:09)
[2016-08-17] MEDS: AMIODARONE 200 MG TABLET PER TUBE SCH ×3 (10:28→21:22)
[2016-08-17] MEDS: POLYETHYLENE GLYCOL POWDER 17 GM PACK PO SCH (10:29)
[2016-08-17] MEDS: DESITIN 4OZ/NYSTATIN 15 GRAM MIXTURE PASTE TOP SCH ×2 (10:29→21:22)
[2016-08-17] MEDS: ENOXAPARIN 80 MG/0.8 ML SYRINGE SUBCUT SCH (11:37)
--- NOTE | 2016-08-17 14:47 | Hospitalist Progress Note ---
Assessment and Plan (1) COPD (chronic obstructive pulmonary disease) Status: Acute Assessment and plan: Pulmonary assisting Current Visit: No (2) Pneumonia Status: Acute Assessment and plan: Pulmonary managing. On vancomycin and merrem Current Visit: Yes Qualifiers: Pneumonia type: due to Pneumococcus Laterality: left Lung location: upper lobe of lung Qualified Code(s): J13 - Pneumonia due to Streptococcus pneumoniae (3) Acute renal insufficiency Status: Acute Current Visit: Yes (4) Acute respiratory failure with hypoxemia Status: Acute Current Visit: Yes (5) Atrial fibrillation with RVR Status: Acute Current Visit: Yes (6) Anemia Status: Acute Assessment and plan: Will continue to monitor. Might require a transfusion tomorrow. Current Visit: Yes Qualifiers: Anemia type: unspecified type Qualified Code(s): D64.9 - Anemia, unspecified Hospitalist: Subjective Interval history: No acute events overnight. Passed his swallow evaluation today. Will start diet and discontinue NGT. Will discontinue lovenox and restart pradaxa. H/H down today, will monitor in am. Exam - Constitutional Vitals: Period Temp Pulse Resp BP Sys/Chen Pulse Ox Last 24 Hr 97 F-100.4 F 21-100 17-102 131-156/59-82 93-100 General appearance: normal weight - Head Head exam: Present: normocephalic, atraumatic - Eye Eye exam: Present: EOMI Pupils: Present: NEVILLE - ENT ENT exam: Present: normal exam - Neck Neck exam: Present: normal inspection - Respiratory Respiratory exam: Present: clear to auscultation bilaterally. Absent: rhonchi, wheezes - Cardiovascular Cardiovascular exam: Present: regular rate and rhythm - GI/Abdominal GI/Abdominal exam: Present: normal bowel sounds, soft. Absent: tenderness, rebound - Extremities Exam Extremities exam: Present: normal inspection - Back Exam Back exam: Present: normal inspection - Neurological Exam Neurological exam: Present: alert - Psychiatric Psychiatric exam: Present: normal affect, normal mood - Skin Skin exam: Present: warm, intact Results - Labs CBC & BMP: 08/17/16 08:33 08/17/16 05:43 Specialty Discharge - Follow Up or Referrals
[2016-08-17] MEDS: PHENOL 1.4% THROAT SPRAY 177 ML BOTTLE PO PRN (18:07)
[2016-08-17] MEDS: DABIGATRAN 75 MG CAPSULE PO SCH (21:12)
[2016-08-18] MEDS: INSULIN REGULAR 100 UNIT/ML SUBCUT SCH ×4 (01:44→17:10)
[2016-08-18] MEDS: ALBUTEROL/IPRATROPIUM 3 ML NEB RESP TX SCH ×5 (03:51→19:47)
[2016-08-18] MEDS: MEROPENEM 1,000 MG in SODIUM CHLORIDE 0.9% 100 ML IV SCH ×3 (04:21→21:18)
[2016-08-18] MEDS: methylPREDNISolone SOD SUC 40 MG/1 ML VIAL IV SCH ×2 (06:01→17:37)
[2016-08-18 06:53] LABS: Calcium 7.4 MG/DL (8.5-10.1); Osmolality,Calculated 308.1 MOS/KG (273-304); Potassium 4.2 MMOL/L (3.5-5.1)
[2016-08-18 07:13] LABS: Basophils % 0.1 % (0.0-0.8); Eosinophils % 0.1 % (0.00-10.9); Hematocrit 21.8 VOL% (42.0-52.0); Immature Granulocytes % 1.2 %; Immature Granulocytes Absolute 0.16 #; Lymphocytes # 0.7 10*3/uL (1.4-4.0); Lymphocytes % 4.8 % (21.2-54.2); Mean Corpuscular HGB Conc 32.1 GM/DL (32-36); Mean Corpuscular Hemoglobin 31 PG (27-34); Mean Corpuscular Volume 96.5 FL (87-102); Mean Platelet Volume 11.6 FL (9.6-12.0); Monocytes # 0.9 10*3/uL (0.11-0.8); NRBC # 0.02 10*3/uL; Neutrophils # 11.7 10*3/uL (1.4-7.4); Neutrophils % 86.8 % (38.7-73.9); Platelet Count 235 T/CUMM (130-400); Red Blood Count 2.26 MC/CUMM (3.8-5.5); White Blood Count 13.4 T/CUMM (4-12)
[2016-08-18 07:35] LABS: Band Neutrophils 1 % (0-10); Hypochromasia 1+; Lymphocytes 2 % (20-55); Segmented Neutrophils 92 % (50-85); Total Cells Counted 100
[2016-08-18] MEDS: POLYETHYLENE GLYCOL POWDER 17 GM PACK PO SCH (08:21)
[2016-08-18] MEDS: LACTULOSE 20 GM/30 ML UDCUP PO SCH (08:21)
[2016-08-18] MEDS: AMIODARONE 200 MG TABLET PER TUBE SCH ×3 (08:23→21:12)
[2016-08-18] MEDS: PANTOPRAZOLE 40 MG VIAL IV SCH ×2 (08:23→21:12)
[2016-08-18] MEDS: DESITIN 4OZ/NYSTATIN 15 GRAM MIXTURE PASTE TOP SCH ×2 (08:23→21:13)
[2016-08-18] MEDS: CLOPIDOGREL 75 MG TABLET PER TUBE SCH (08:23)
[2016-08-18] MEDS: DILTIAZEM 30 MG TABLET PO SCH ×3 (08:23→21:11)
[2016-08-18] MEDS: METOPROLOL TARTRATE 50 MG TABLET PER TUBE SCH ×2 (08:23→21:11)
[2016-08-18] MEDS: DABIGATRAN 75 MG CAPSULE PO SCH ×2 (08:23→21:11)
[2016-08-18] MEDS: ASPIRIN EC 81 MG TABLET PO SCH (08:23)
[2016-08-18] MEDS: VANCOMYCIN INJ 1,000 MG in SODIUM CHLORIDE 0.9% 250 ML IV SCH ×2 (08:24→22:15)
[2016-08-18] MEDS ORDERED: SODIUM CHLORIDE 0.9% 250 ML IV PRN (09:23)
[2016-08-18] MEDS: BUTALBITAL/ACETAMIN/CAFFEINE 50-325-40 MG TABLET PER TUBE SCH ×2 (12:02→22:15)
--- NOTE | 2016-08-18 12:51 | Hospitalist Progress Note ---
Assessment and Plan (1) COPD (chronic obstructive pulmonary disease) Status: Acute Assessment and plan: Pulmonary assisting Current Visit: No (2) Pneumonia Status: Acute Assessment and plan: Pulmonary managing. On vancomycin and merrem Current Visit: Yes Qualifiers: Pneumonia type: due to Pneumococcus Laterality: left Lung location: upper lobe of lung Qualified Code(s): J13 - Pneumonia due to Streptococcus pneumoniae (3) Acute renal insufficiency Status: Acute Current Visit: Yes (4) Acute respiratory failure with hypoxemia Status: Acute Current Visit: Yes (5) Atrial fibrillation with RVR Status: Acute Current Visit: Yes (6) Anemia Status: Acute Assessment and plan: Will continue to monitor. Might require a transfusion tomorrow. Current Visit: Yes Qualifiers: Anemia type: unspecified type Qualified Code(s): D64.9 - Anemia, unspecified Hospitalist: Subjective Interval history: Patient's reports that patient had a rough night, complaining of throat pain and not feeling better. Today patient still reports throat pain, not relieved with chloraseptic spray. Patient is frustrated with his slow progress, although he did pass he swallow test yesterday and now is able to eat and the NGT is out. H/H continues to drop, will transfuse 2 units prbcs today. Will give stomatits with lidocaine. Patient is still on vancomycin and merrem. Exam - Constitutional Vitals: Period Temp Pulse Resp BP Sys/Chen Pulse Ox Last 24 Hr 97 F-98.1 F 70-91 16-20 109-140/53-75 90-99 General appearance: over weight - Head Head exam: Present: normocephalic, atraumatic - Eye Eye exam: Present: EOMI Pupils: Present: NEVILLE - ENT ENT exam: Present: normal exam - Neck Neck exam: Present: normal inspection - Respiratory Respiratory exam: Present: clear to auscultation bilaterally. Absent: rhonchi, wheezes - Cardiovascular Cardiovascular exam: Present: regular rate and rhythm - GI/Abdominal GI/Abdominal exam: Present: normal bowel sounds, soft. Absent: tenderness, rebound - Extremities Exam Extremities exam: Present: normal inspection - Back Exam Back exam: Present: normal inspection - Neurological Exam Neurological exam: Present: alert, oriented X3 - Psychiatric Psychiatric exam: Present: normal affect, normal mood - Skin Skin exam: Present: warm, intact Results - Labs CBC & BMP: 08/18/16 05:30 08/18/16 05:30 Specialty Discharge - Follow Up or Referrals
[2016-08-18] MEDS: MYLANTA/LIDO VISC/DIPH 300 ML BOTTLE SWISH/SWAL PRN ×2 (13:31→17:03)
--- NOTE | 2016-08-18 16:12 | Pulmonology Progress Note ---
Pulmonary - PN: Subj Interval history: Patient is an 81-year-old that has coronary artery disease and COPD. He came in with left-sided chest pleurisy and shortness of breath and has a left upper lobe pneumonia. His cultures have grown pneumococcal pneumonia. Over the weekend he had more respiratory distress and had to be intubated. He did develop more right upper lobe pneumonia also. His lung compliance is stable. He has been doing better each day on the ventilator. He did do some CPAP trials yesterday. His oxygenation is much improved and his chest x-ray is much better. He was extubated Wednesday and has done well. Over the weekend his breathing has been doing well. The patient feels better today now that he has his NG tube out. He still has a sore throat but is swallowing a little better. His breathing is doing much better. He is extremely weak and will get physical therapy. He is also getting transfused today. Exam (Progress Note) - Constitutional Vitals: Period Temp Pulse Resp BP Sys/Chen Pulse Ox Last 24 Hr 97 F-98.1 F 74-91 16-20 115-140/53-75 90-99 Exam: General appearance: no distress (The patient is more alert and looks more comfortable.0 - Head Head exam: Present: normal inspection, normocephalic - Eye Eye exam: Present: EOMI. Absent: scleral icterus Pupils: Present: NEVILLE - ENT ENT exam: Present: normal exam, he does have a bruised and inflamed throat. - Neck Neck exam: Present: normal inspection. Absent: lymphadenopathy, thyromegaly - Respiratory Respiratory exam: Present: Patient has good breath sounds bilaterally and his lungs are clearer and he is moving air well now. - Cardiovascular Cardiovascular exam: Present: regular rate and rhythm, he is back in a sinus rhythm.. Absent: gallop, systolic murmur - GI/Abdominal GI/Abdominal exam: Present: normal bowel sounds, soft. Absent: organomegaly, tenderness - Extremities Exam Extremities exam: Absent: calf tenderness, edema - Neurological Exam Neurological exam: Present: He is moving everything fairly well. - Psychiatric Psychiatric exam: Present: He is somewhat depressed now. - Skin Skin exam: Present: warm, dry Results - Labs CBC & BMP: 08/18/16 05:30 08/18/16 05:30 Assessment and Plan (1) Pneumonia Status: Acute Assessment and plan: The patient comes in short of breath and has left-sided pleurisy. He has developed a left upper lobe pneumonia. Blood cultures positive for pneumococcus. He developed worsening respiratory failure and required ventilatory support. His pneumonia is much better now and is breathing comfortably now. His chest x-ray is much better. Current Visit: Yes Qualifiers: Pneumonia type: due to Pneumococcus Laterality: left Lung location: upper lobe of lung Qualified Code(s): J13 - Pneumonia due to Streptococcus pneumoniae (2) COPD exacerbation Status: Acute Assessment and plan: The patient has a component of COPD and will continue with treatment. He will continue with bronchodilator therapy. His breathing is much improved now Current Visit: Yes (3) Renal insufficiency Status: Resolved Assessment and plan: Patient's creatinine is 0.9 and stable. Current Visit: No (4) Coronary artery disease Status: Acute Assessment and plan: Patient has known coronary artery disease with previous stents. His chest pain sounds like pleurisy however. He is not in heart failure and he is hemodynamically stable Current Visit: No (5) Acute respiratory failure with hypoxemia Status: Acute Assessment and plan: The patient had respiratory failure from pneumonia but is much better now. His breathing is much better. He is still extremely weak but is doing much better. He will continue with physical therapy. Current Visit: Yes Specialty Discharge - Follow Up or Referrals
[2016-08-18] MEDS: PHENOL 1.4% THROAT SPRAY 177 ML BOTTLE PO PRN (17:14)
[2016-08-19] MEDS: INSULIN REGULAR 100 UNIT/ML SUBCUT SCH ×4 (01:29→17:50)
[2016-08-19] MEDS: ALBUTEROL/IPRATROPIUM 3 ML NEB RESP TX SCH ×6 (02:53→19:57)
[2016-08-19] MEDS: MEROPENEM 1,000 MG in SODIUM CHLORIDE 0.9% 100 ML IV SCH ×3 (06:01→20:03)
[2016-08-19] MEDS: methylPREDNISolone SOD SUC 40 MG/1 ML VIAL IV SCH ×2 (06:01→18:10)
[2016-08-19] MEDS: PHENOL 1.4% THROAT SPRAY 177 ML BOTTLE PO PRN (06:31)
[2016-08-19 06:58] LABS: Basophils % 0.1 % (0.0-0.8); Hematocrit 29.1 VOL% (42.0-52.0); Immature Granulocytes % 1.1 %; Immature Granulocytes Absolute 0.15 #; Lymphocytes # 0.7 10*3/uL (1.4-4.0); Mean Corpuscular HGB Conc 32.6 GM/DL (32-36); Mean Corpuscular Hemoglobin 30 PG (27-34); Mean Corpuscular Volume 92.4 FL (87-102); Mean Platelet Volume 11.3 FL (9.6-12.0); Monocytes # 0.8 10*3/uL (0.11-0.8); Monocytes % 6.3 % (1.7-12.7); Neutrophils # 11.5 10*3/uL (1.4-7.4); Neutrophils % 87.5 % (38.7-73.9); Platelet Count 211 T/CUMM (130-400); Red Cell Distribution Width 14.7 % (9.3-17.3); White Blood Count 13.1 T/CUMM (4-12)
[2016-08-19 07:09] LABS: Hemoglobin 9.5 GM/DL (14.0-18.0); Red Blood Count 3.15 MC/CUMM (3.8-5.5)
[2016-08-19 07:26] LABS: Band Neutrophils 1 % (0-10); Hypochromasia 1+; Lymphocytes 4 % (20-55); Ovalocytes Slight; Platelet Estimate Normal; Segmented Neutrophils 89 % (50-85); Total Cells Counted 100
[2016-08-19 07:27] LABS: Microcytosis Slight
[2016-08-19 07:28] LABS: Calcium 7.3 MG/DL (8.5-10.1); Magnesium 2.1 MG/DL (1.8-2.4); Osmolality,Calculated 301.3 MOS/KG (273-304); Potassium 4.1 MMOL/L (3.5-5.1)
[2016-08-19] MEDS: DABIGATRAN 75 MG CAPSULE PO SCH ×2 (09:51→20:03)
[2016-08-19] MEDS: AMIODARONE 200 MG TABLET PER TUBE SCH ×3 (09:51→20:03)
[2016-08-19] MEDS: LACTULOSE 20 GM/30 ML UDCUP PO SCH (09:51)
[2016-08-19] MEDS: ASPIRIN EC 81 MG TABLET PO SCH (09:51)
[2016-08-19] MEDS: VANCOMYCIN INJ 1,000 MG in SODIUM CHLORIDE 0.9% 250 ML IV SCH ×2 (09:51→21:56)
[2016-08-19] MEDS: METOPROLOL TARTRATE 50 MG TABLET PER TUBE SCH ×2 (09:52→20:03)
[2016-08-19] MEDS: DILTIAZEM 30 MG TABLET PO SCH ×3 (09:52→20:03)
[2016-08-19] MEDS: DESITIN 4OZ/NYSTATIN 15 GRAM MIXTURE PASTE TOP SCH ×2 (09:52→22:03)
[2016-08-19] MEDS: CLOPIDOGREL 75 MG TABLET PER TUBE SCH (09:52)
[2016-08-19] MEDS: PANTOPRAZOLE 40 MG VIAL IV SCH ×2 (09:52→21:57)
[2016-08-19] MEDS: BUTALBITAL/ACETAMIN/CAFFEINE 50-325-40 MG TABLET PER TUBE SCH ×2 (09:52→20:16)
[2016-08-19] MEDS: POLYETHYLENE GLYCOL POWDER 17 GM PACK PO SCH (09:52)
--- NOTE | 2016-08-19 13:22 | Pulmonology Progress Note ---
Pulmonary - PN: Subj Interval history: Patient is an 81-year-old that has coronary artery disease and COPD. He came in with left-sided chest pleurisy and shortness of breath and has a left upper lobe pneumonia. His cultures have grown pneumococcal pneumonia. Over the weekend he had more respiratory distress and had to be intubated. He did develop more right upper lobe pneumonia also. His lung compliance is stable. He has been doing better each day on the ventilator. He did do some CPAP trials yesterday. His oxygenation is much improved and his chest x-ray is much better. He was extubated Wednesday and has done well. Over the weekend his breathing has been doing well. The patient is still complaining of a sore throat although he is taking in some liquids. He said he did not rest very well last night. His shortness of breath is better. He is doing a little physical therapy Exam (Progress Note) - Constitutional Vitals: Period Temp Pulse Resp BP Sys/Chen Pulse Ox Last 24 Hr 97.4 F-98.8 F 67-87 18-22 115-159/54-71 90-100 Exam: General appearance: no distress (The patient is more alert but he says he still does not feel well.) - Head Head exam: Present: normal inspection, normocephalic - Eye Eye exam: Present: EOMI. Absent: scleral icterus Pupils: Present: NEVILLE - ENT ENT exam: Present: normal exam, he does have a bruised and inflamed throat. - Neck Neck exam: Present: normal inspection. Absent: lymphadenopathy, thyromegaly - Respiratory Respiratory exam: Present: Patient has good breath sounds bilaterally and his lungs are clearer and he is moving air well now. He has some slight rhonchi in the left upper lung. - Cardiovascular Cardiovascular exam: Present: regular rate and rhythm, he is back in a sinus rhythm.. Absent: gallop, systolic murmur - GI/Abdominal GI/Abdominal exam: Present: normal bowel sounds, soft. Absent: organomegaly, tenderness - Extremities Exam Extremities exam: Absent: calf tenderness, edema - Neurological Exam Neurological exam: Present: He is moving everything fairly well. - Psychiatric Psychiatric exam: Present: He is somewhat depressed now. - Skin Skin exam: Present: warm, dry Results - Labs CBC & BMP: 08/19/16 06:18 08/19/16 06:18 Assessment and Plan (1) Pneumonia Status: Acute Assessment and plan: The patient comes in short of breath and has left-sided pleurisy. He has developed a left upper lobe pneumonia. Blood cultures positive for pneumococcus. He developed worsening respiratory failure and required ventilatory support. His pneumonia is much better now and is breathing comfortably now. His chest x-ray is much better. Overall his breathing is better but he still very weak. Current Visit: Yes Qualifiers: Pneumonia type: due to Pneumococcus Laterality: left Lung location: upper lobe of lung Qualified Code(s): J13 - Pneumonia due to Streptococcus pneumoniae (2) COPD exacerbation Status: Acute Assessment and plan: The patient has a component of COPD and will continue with treatment. He will continue with bronchodilator therapy. His breathing is much improved now. Current Visit: Yes (3) Coronary artery disease Status: Acute Assessment and plan: Patient has known coronary artery disease with previous stents. His chest pain sounds like pleurisy however. He is not in heart failure and he is hemodynamically stable Current Visit: No (4) Acute respiratory failure with hypoxemia Status: Acute Assessment and plan: The patient had respiratory failure from pneumonia but is much better now. His breathing is much better. He is still extremely weak but is doing much better. He will continue with physical therapy. Current Visit: Yes Specialty Discharge - Follow Up or Referrals
--- NOTE | 2016-08-19 16:51 | Hospitalist Progress Note ---
Assessment and Plan (1) COPD (chronic obstructive pulmonary disease) Status: Acute Assessment and plan: Pulmonary assisting Current Visit: No (2) Pneumonia Status: Acute Assessment and plan: Pulmonary managing. On vancomycin and merrem Current Visit: Yes Qualifiers: Pneumonia type: due to Pneumococcus Laterality: left Lung location: upper lobe of lung Qualified Code(s): J13 - Pneumonia due to Streptococcus pneumoniae (3) Acute renal insufficiency Status: Acute Current Visit: Yes (4) Acute respiratory failure with hypoxemia Status: Acute Current Visit: Yes (5) Atrial fibrillation with RVR Status: Acute Current Visit: Yes (6) Anemia Status: Acute Assessment and plan: Will continue to monitor. Might require a transfusion tomorrow. Current Visit: Yes Qualifiers: Anemia type: unspecified type Qualified Code(s): D64.9 - Anemia, unspecified Hospitalist: Subjective Interval history: No acute events overnight. Still with throat pain. Also complaining of being unable to sleep at night. Working with physical therapy. Respiratory status is much improved. Exam - Constitutional Vitals: Period Temp Pulse Resp BP Sys/Chen Pulse Ox Last 24 Hr 97.4 F-99.5 F 67-87 18-22 130-159/61-71 90-100 General appearance: over weight - Head Head exam: Present: normocephalic, atraumatic - Eye Eye exam: Present: EOMI Pupils: Present: NEVILLE - ENT ENT exam: Present: normal exam - Neck Neck exam: Present: normal inspection - Respiratory Respiratory exam: Present: clear to auscultation bilaterally. Absent: rhonchi, wheezes - Cardiovascular Cardiovascular exam: Present: regular rate and rhythm - GI/Abdominal GI/Abdominal exam: Present: normal bowel sounds, soft. Absent: tenderness, rebound - Extremities Exam Extremities exam: Present: normal inspection - Back Exam Back exam: Present: normal inspection - Neurological Exam Neurological exam: Present: alert, oriented X3 - Psychiatric Psychiatric exam: Present: normal affect, normal mood - Skin Skin exam: Present: warm, intact Results - Labs CBC & BMP: 08/19/16 06:18 08/19/16 06:18 Specialty Discharge - Follow Up or Referrals
[2016-08-19] MEDS ORDERED: traZODone 50 MG TABLET PO PRN (16:52)
[2016-08-19] MEDS: ACETAMINOPHEN 325 MG/10.15 ML UDCUP PO PRN (19:53)
[2016-08-20] MEDS: INSULIN REGULAR 100 UNIT/ML SUBCUT SCH ×5 (00:28→23:16)
[2016-08-20] MEDS: ALBUTEROL/IPRATROPIUM 3 ML NEB RESP TX SCH ×5 (00:35→19:28)
[2016-08-20] MEDS: MEROPENEM 1,000 MG in SODIUM CHLORIDE 0.9% 100 ML IV SCH (05:36)
[2016-08-20] MEDS: methylPREDNISolone SOD SUC 40 MG/1 ML VIAL IV SCH (06:49)
[2016-08-20 08:28] LABS: Basophils % 0.1 % (0.0-0.8); Eosinophils % 0.2 % (0.00-10.9); Hematocrit 28.4 VOL% (42.0-52.0); Hemoglobin 9.6 GM/DL (14.0-18.0); Immature Granulocytes % 0.9 %; Immature Granulocytes Absolute 0.11 #; Lymphocytes # 0.7 10*3/uL (1.4-4.0); Lymphocytes % 5.1 % (21.2-54.2); Mean Corpuscular HGB Conc 33.8 GM/DL (32-36); Mean Corpuscular Hemoglobin 31 PG (27-34); Mean Corpuscular Volume 91.6 FL (87-102); Mean Platelet Volume 10.8 FL (9.6-12.0); Monocytes # 0.6 10*3/uL (0.11-0.8); Monocytes % 4.8 % (1.7-12.7); Neutrophils # 11.3 10*3/uL (1.4-7.4); Neutrophils % 88.9 % (38.7-73.9); Platelet Count 229 T/CUMM (130-400); Red Cell Distribution Width 14.4 % (9.3-17.3); White Blood Count 12.8 T/CUMM (4-12)
[2016-08-20] MEDS: VANCOMYCIN INJ 1,000 MG in SODIUM CHLORIDE 0.9% 250 ML IV SCH (08:53)
[2016-08-20] MEDS: MYLANTA/LIDO VISC/DIPH 300 ML BOTTLE SWISH/SWAL PRN (08:54)
[2016-08-20 08:59] LABS: Calcium 7.2 MG/DL (8.5-10.1); Magnesium 2.1 MG/DL (1.8-2.4); Potassium 3.7 MMOL/L (3.5-5.1)
--- NOTE | 2016-08-20 09:54 | Pulmonology Progress Note ---
Pulmonary - PN: Subj Interval history: Patient is an 81-year-old that has coronary artery disease and COPD. He came in with left-sided chest pleurisy and shortness of breath and has a left upper lobe pneumonia. His cultures have grown pneumococcal pneumonia. He was ventilated for a while but is done well with his breathing. He is completed over 10 days of antibiotics. He does have a very sore throat after having an ET tube and NG tube. This is his major complaint now. He has not been able to eat very well. He is still very weak. His breathing is stable. Exam (Progress Note) - Constitutional Vitals: Period Temp Pulse Resp BP Sys/Chen Pulse Ox Last 24 Hr 97.3 F-99.5 F 67-87 18-22 133-160/66-79 95-100 Exam: General appearance: no distress (The patient is more alert but he says he still does not feel well. He is still complaining about a sore throat.) - Head Head exam: Present: normal inspection, normocephalic - Eye Eye exam: Present: EOMI. Absent: scleral icterus Pupils: Present: NEVILLE - ENT ENT exam: Present: normal exam, he does have a bruised and inflamed throat. - Neck Neck exam: Present: normal inspection. Absent: lymphadenopathy, thyromegaly - Respiratory Respiratory exam: Present: Patient has good breath sounds bilaterally and his lungs are clearer and he is moving air well now. He has some slight rhonchi in the left upper lung. - Cardiovascular Cardiovascular exam: Present: regular rate and rhythm, he is back in a sinus rhythm.. Absent: gallop, systolic murmur - GI/Abdominal GI/Abdominal exam: Present: normal bowel sounds, soft. Absent: organomegaly, tenderness - Extremities Exam Extremities exam: Absent: calf tenderness, edema - Neurological Exam Neurological exam: Present: He is moving everything fairly well. - Psychiatric Psychiatric exam: Present: He is somewhat depressed now. - Skin Skin exam: Present: warm, dry Results - Labs CBC & BMP: 08/20/16 07:50 08/20/16 07:50 Assessment and Plan (1) Pneumonia Status: Acute Assessment and plan: The patient has been treated for pneumococcal pneumonia and clinically he is doing much better. Current Visit: Yes Qualifiers: Pneumonia type: due to Pneumococcus Laterality: left Lung location: upper lobe of lung Qualified Code(s): J13 - Pneumonia due to Streptococcus pneumoniae (2) COPD exacerbation Status: Acute Assessment and plan: The patient has a component of COPD and will continue with treatment. He will continue with bronchodilator therapy. His breathing is much improved now. He does not seem to be having any respiratory problems now. Current Visit: Yes (3) Coronary artery disease Status: Acute Assessment and plan: Patient has known coronary artery disease with previous stents. His chest pain sounds like pleurisy however. He is not in heart failure and he is hemodynamically stable Current Visit: No (4) Acute respiratory failure with hypoxemia Status: Resolved Assessment and plan: The patient had respiratory failure from pneumonia but is much better now. His breathing is much better. He is still extremely weak but is doing much better. He will continue with physical therapy. Current Visit: Yes Specialty Discharge - Follow Up or Referrals
[2016-08-20] MEDS: BUTALBITAL/ACETAMIN/CAFFEINE 50-325-40 MG TABLET PER TUBE SCH ×2 (10:44→21:30)
[2016-08-20] MEDS: METOPROLOL TARTRATE 50 MG TABLET PER TUBE SCH ×2 (10:44→21:30)
[2016-08-20] MEDS: ASPIRIN EC 81 MG TABLET PO SCH (10:44)
[2016-08-20] MEDS: CLOPIDOGREL 75 MG TABLET PER TUBE SCH (10:44)
[2016-08-20] MEDS: AMIODARONE 200 MG TABLET PER TUBE SCH ×3 (10:44→21:29)
[2016-08-20] MEDS: DABIGATRAN 75 MG CAPSULE PO SCH ×2 (10:44→21:31)
[2016-08-20] MEDS: LACTULOSE 20 GM/30 ML UDCUP PO SCH (10:44)
[2016-08-20] MEDS: DILTIAZEM 30 MG TABLET PO SCH ×3 (10:44→21:29)
[2016-08-20] MEDS: POLYETHYLENE GLYCOL POWDER 17 GM PACK PO SCH (10:44)
[2016-08-20] MEDS: PANTOPRAZOLE 40 MG VIAL IV SCH ×2 (10:45→21:17)
[2016-08-20] MEDS: DESITIN 4OZ/NYSTATIN 15 GRAM MIXTURE PASTE TOP SCH ×2 (10:45→21:31)
--- NOTE | 2016-08-20 10:54 | Hospitalist Progress Note ---
Assessment and Plan (1) COPD (chronic obstructive pulmonary disease) Status: Acute Assessment and plan: Pulmonary assisting Current Visit: No (2) Pneumonia Status: Acute Assessment and plan: Pulmonary managing. Antibiotics discontinued today. Current Visit: Yes Qualifiers: Pneumonia type: due to Pneumococcus Laterality: left Lung location: upper lobe of lung Qualified Code(s): J13 - Pneumonia due to Streptococcus pneumoniae (3) Acute renal insufficiency Status: Acute Current Visit: Yes (4) Acute respiratory failure with hypoxemia Status: Resolved Current Visit: Yes (5) Atrial fibrillation with RVR Status: Acute Current Visit: Yes (6) Anemia Status: Acute Assessment and plan: Transfused 2 units 08/18/16. Stable since Current Visit: Yes Qualifiers: Anemia type: unspecified type Qualified Code(s): D64.9 - Anemia, unspecified Hospitalist: Subjective Interval history: Patient still reports being unable to sleep overnight even with receiving trazodone. Will increase tonight. Antibiotics discontinued today. Patient still complaining of throat pain, possibly due to intubation earlier in admission. Will get ENT to evaluate to make sure that there is nothing else going on. Stomatits being scheduled with meals. Continue PT/OT. Working on swing bed placement. Exam - Constitutional Vitals: Period Temp Pulse Resp BP Sys/Chen Pulse Ox Last 24 Hr 97.3 F-99.5 F 67-87 18-22 133-160/63-79 95-100 General appearance: normal weight - Head Head exam: Present: normocephalic, atraumatic - Eye Eye exam: Present: EOMI Pupils: Present: NEVILLE - ENT ENT exam: Present: normal exam - Neck Neck exam: Present: normal inspection. Absent: tenderness - Respiratory Respiratory exam: Present: clear to auscultation bilaterally. Absent: rhonchi, wheezes - Cardiovascular Cardiovascular exam: Present: regular rate and rhythm - GI/Abdominal GI/Abdominal exam: Present: normal bowel sounds, soft. Absent: tenderness, rebound - Extremities Exam Extremities exam: Present: normal inspection - Back Exam Back exam: Present: normal inspection - Neurological Exam Neurological exam: Present: alert - Psychiatric Psychiatric exam: Present: normal affect, normal mood - Skin Skin exam: Present: warm, intact Results - Labs CBC & BMP: 08/20/16 07:50 08/20/16 07:50 Specialty Discharge - Follow Up or Referrals
[2016-08-20] MEDS: MYLANTA/LIDO VISC/DIPH 300 ML BOTTLE SWISH/SWAL SCH ×4 (12:24→21:31)
--- NOTE | 2016-08-20 13:04 | Consultation ---
Assessment and Plan - Time spent with patient Time spent with patient: Less than 30 minutes (1) Mucositis Status: Acute Assessment and plan: Evaluation at bedside with speech therapy reveals pharyngitis secondary to mucositis and this causing enough pain where it is difficult to swallow causing his dysphagia. Overall I think we should address his pain. We will start some liquid Hycet which made help dull the pain so that hopefully in the near future he will be doing better with swallowing. We may need to consider TPN if he is not willing to eat. I do recommend a CT with contrast of the neck to make sure there is no underlying cause for some of this though clinical exam does not really demonstrate anything that would make me think that there would be. If this continues we may consider different routes to get a laryngoscopy obtained were only able to do nasal endoscopy which revealed cesar rhinitis and mucositis consistent with just a dry irritated airway. He would also benefit from just humidified air to help moisturize his nasal and oral airway. Thank you very much for this consult I will continue to follow this patient Current Visit: Yes (2) Pharyngitis Status: Acute Current Visit: Yes (3) Dysphasia Status: Acute Current Visit: Yes History of Present Illness - Data of Consult Patient: new to practice Consult date: 08/20/16 Requesting Physician: Mehul Thorne - Consult Narrative Reason for consult: Dysphasia, pharyngitis History of present illness: Mr. Boo is a 81 year old male status post extubation and nasogastric tube removal and ICU stay for several days he was initially cleared and swallowing well and has recently started to have more more dysphasia secondary to pharyngitis and pain and his swallowing has worsened. ENT is consulted for evaluation and treatment. CC: Chito Anderson MD - Home Medications and Allergies Home Medications: Home Medications Medication Instructions Recorded Confirmed Type Polyethylene Glycol Powder 17 gm PO DAILY 07/18/14 08/05/16 History [Miralax] amLODIPine [Norvasc] 10 mg PO DAILY 07/18/14 08/05/16 History Aspirin EC Tab 1 tablet PO DAILY 02/06/15 08/05/16 History Albuterol Neb [Proventil Neb] 2.5 mg RESP TX Q4H PRN 03/12/15 08/05/16 History Clopidogrel [Plavix] 75 mg PO DAILY 08/24/15 08/05/16 History Butalbital/Acet/Caff 50-325-40 1 tablet PO BID 08/04/16 08/05/16 History [Fioricet 50-325-40 mg Tablet] Dabigatran [Pradaxa] 75 mg PO BID 08/04/16 08/05/16 History Ondansetron [Ondansetron Odt] 4 mg PO Q4H PRN #10 tab.rapdis 08/04/16 08/05/16 Rx Valsartan 160 mg PO DAILY 08/04/16 08/05/16 History Budesonide/Formoterol 160-4.5 2 puff INH BID 08/05/16 08/05/16 History [Symbicort 160-4.5] Allergies/Adverse Reactions: Allergies Allergy/AdvReac Type Severity Reaction Status Date / Time latex Allergy Unknown/Unable Verified 08/05/16 13:40 to obtain sulfacetamide Allergy Unknown/Unable Verified 08/05/16 13:40 to obtain sumatriptan Allergy Unknown/Unable Verified 08/05/16 13:40 to obtain 12 point system: reviewed and no additional remarkable complaints except as stated Medical,Surgical,& Family Hx - Medical History Cardio: History of: Cerebrovascular Disease, Congenital Heart Disease (PFO), CAD , Hypertension, PVD (Right leg) Psychological: History of: Anxiety Disorders Neurology: History of: Cerebrovascular Accident, TIA No history of: Seizures HEENT: History of: Eye Problem (macular degeneration) Endocrine: History of: Dyslipidemia Respiratory: History of: Bronchitis, COPD, Pneumonia Genitourinary: History of: Bladder Problem (bladder ca), Prostate Problems ( radiation, ca 2007) Gastrointestinal: History of: GERD, Hemorrhoids, Polyps Musculoskeletal: History of: Back/Neck Problems, Musculoskeletal Problems ( arthritis) Hematology: No history of: Blood Transfusion Reaction Other: History of: Cancer (prostate & bladder), Eczema, Skin Problems (Rosechia) No history of: Anesthesia Reactions - Surgical History Cardiac Surgeries: Sugical HX of: Femoral-Popliteal Bypass Graft, Cardiac Catheterization (stent), Cardiac Surgery (CABG 2001) HEENT Surgeries: Surgical HX of: Eye Surgery (bilateral cataracts.) Abdominal Surgeries: Surgical HX of: Colonoscopy, EGD Reproductive Surgeries: Surgical HX of;: Prostate Surgery (TURP) - Family History Family History: Reports;: Family Cancer (brother had lung cancer, son had lung) , Family Hypertension (mother, two sisters), Family Stroke (mother, son) - Social History Smoking Status: Former smoker Frequency of Alcohol Use: None Type of Drug Use: None Exam - Constitutional Vitals: Period Temp Pulse Resp BP Sys/Chen Pulse Ox Last 24 Hr 97.3 F-99.5 F 69-95 18-22 137-160/63-79 95-100 General appearance: normal weight, no acute distress - Head Head exam: Present: normal inspection, normocephalic - ENT ENT exam: Present: other (Overall dry mucosa because of the oral and nasal airway with a diffuse oropharyngeal mucositis consistent with long-term endotracheal and nasogastric intubation bedside swallow with speech therapy revealed a good swallow with surprisingly good high laryngeal elevation but marked amount of pain with this causing a decreased desire to want to swallow. He did not tolerate bedside laryngoscopy though we may do this in the future either under conscious sedation were with more time spent with topical anesthesia.) - Neck Neck exam: Present: normal inspection - Respiratory Respiratory exam: Present: other (No shortness of breath or difficulty breathing ) - GI/Abdominal GI/Abdominal exam: Present: soft - Extremities Exam Extremities exam: Present: normal inspection - Neurological Exam Neurological exam: Present: alert, oriented X3, CN II-XII intact - Psychiatric Psychiatric exam: Present: normal affect, normal mood - Skin Skin exam: Present: normal color, warm Results - Labs CBC & BMP: 08/20/16 07:50 08/20/16 07:50 Lab Results: I have reviewed the past 24 hour labs Specialty Discharge - Follow Up or Referrals
[2016-08-20] MEDS ORDERED: SODIUM CHLORIDE 0.65% NASAL SPRAY 45 ML BOTTLE BOTH NARES PRN (13:10)
[2016-08-20] MEDS: HYDROcod/ACETAMIN 7.5-325 MG/15 ML UDCUP PO PRN ×2 (15:16→23:06)
--- NOTE | 2016-08-20 16:21 | CT Report ---
Indication: Throat pain The total DLP is 273 mGy*cm. Comparison: None available Technique: Serial tomographic axial images of the neck were obtained without administration of intravenous contrast.. Coronal and sagittal reformatted images were available for review. Dose reduction: This CT exam was performed using one or more of the following dose reduction techniques: Automated exposure control, automated adjustment of the mA and/or KV according to patient size, or use of iterative reconstruction technique. Findings: Please note study is somewhat limited given lack of intravenous contrast Imaged portions of the intracranial structures demonstrate no acute abnormality. Minimal opacification is noted within the right maxillary sinus. The thyroid is midline and appears within normal limits. The trachea is patent with no intraluminal lesions demonstrated. There is no evidence for abnormal mass or significant lymphadenopathy. The vocal cords are normal in appearance. The parotid and submandibular glands are normal in appearance. Atherosclerotic calcifications are noted within both carotid vessels. The major vasculature of the neck demonstrates no significant flow-limiting lesion. The visualized osseous structures, including the skullbase and cervical spine, demonstrate no acute abnormality. There are interstitial thickening changes within the upper lungs bilaterally. Centrilobular emphysematous changes are also noted. Minimal ground glass opacities are also noted within the left upper lobe, but are only partially included in the [id number]. There is no pneumothorax. IMPRESSION: Study somewhat limited given lack of intravenous contrast. No obvious mass, asymmetry or other focal lesion is identified within the neck. Chronic interstitial scarring and centrilobular emphysematous changes with patchy ground glass opacities in the left upper lobe are most compatible with developing infectious/inflammatory infiltrates. Minimal right maxillary sinus opacification. PROCEDURE INTERPRETED AT [facility] DEPARTMENT OF RADIOLOGY Final Report Signed by: Jw Reynolds
[2016-08-20] MEDS ORDERED: FUROSEMIDE 40 MG TABLET PO ONE ×2 (16:43→21:00)
[2016-08-20] MEDS ORDERED: traZODone 50 MG TABLET PO SCH (21:00)
[2016-08-21] MEDS: ALBUTEROL/IPRATROPIUM 3 ML NEB RESP TX SCH ×4 (00:23→19:40)
[2016-08-21] MEDS: INSULIN REGULAR 100 UNIT/ML SUBCUT SCH ×3 (05:15→17:32)
[2016-08-21] MEDS: DABIGATRAN 75 MG CAPSULE PO SCH ×2 (08:37→20:23)
[2016-08-21] MEDS: AMIODARONE 200 MG TABLET PER TUBE SCH ×3 (08:37→20:23)
[2016-08-21] MEDS: ASPIRIN EC 81 MG TABLET PO SCH (08:37)
[2016-08-21] MEDS: PANTOPRAZOLE 40 MG VIAL IV SCH ×2 (08:37→20:23)
[2016-08-21] MEDS: CLOPIDOGREL 75 MG TABLET PER TUBE SCH (08:37)
[2016-08-21] MEDS: METOPROLOL TARTRATE 50 MG TABLET PER TUBE SCH ×2 (08:37→20:23)
[2016-08-21] MEDS: DILTIAZEM 30 MG TABLET PO SCH ×3 (08:37→20:23)
[2016-08-21] MEDS: DESITIN 4OZ/NYSTATIN 15 GRAM MIXTURE PASTE TOP SCH ×2 (08:38→22:09)
[2016-08-21] MEDS: predniSONE 10 MG TABLET PO SCH (08:38)
[2016-08-21] MEDS: POLYETHYLENE GLYCOL POWDER 17 GM PACK PO SCH (08:38)
[2016-08-21] MEDS: BUTALBITAL/ACETAMIN/CAFFEINE 50-325-40 MG TABLET PER TUBE SCH ×2 (08:38→22:09)
[2016-08-21] MEDS: MYLANTA/LIDO VISC/DIPH 300 ML BOTTLE SWISH/SWAL SCH ×4 (08:38→22:09)
[2016-08-21] MEDS: LACTULOSE 20 GM/30 ML UDCUP PO SCH (08:38)
[2016-08-21] MEDS: HYDROcod/ACETAMIN 7.5-325 MG/15 ML UDCUP PO PRN ×3 (08:42→20:22)
--- NOTE | 2016-08-21 11:06 | Progress Note ---
Assessment and Plan - Time spent with patient Time spent with patient: Less than 30 minutes (1) Mucositis Status: Acute Assessment and plan: Evaluation at bedside with speech therapy reveals pharyngitis secondary to mucositis and this causing enough pain where it is difficult to swallow causing his dysphagia. Overall I think we should address his pain. We will start some liquid Hycet which made help dull the pain so that hopefully in the near future he will be doing better with swallowing. We may need to consider TPN if he is not willing to eat. I do recommend a CT with contrast of the neck to make sure there is no underlying cause for some of this though clinical exam does not really demonstrate anything that would make me think that there would be. If this continues we may consider different routes to get a laryngoscopy obtained were only able to do nasal endoscopy which revealed cesar rhinitis and mucositis consistent with just a dry irritated airway. He would also benefit from just humidified air to help moisturize his nasal and oral airway. Thank you very much for this consult I will continue to follow this patient 08/21/2016 I recommend continued treatment of pain and will see if the mucositis and pharyngitis resolves improving his swallow if there is no improvement throughout the weekend next week we will consider being a little more aggressive with evaluation with possible sedated laryngoscopy in the OR but will give him plenty of time to improve prior to proceeding of this. Thank you very much for this consult I will follow this patient intermittently throughout his stay please notify me if his condition worsens or changes Current Visit: Yes (2) Pharyngitis Status: Acute Current Visit: Yes (3) Dysphasia Status: Acute Current Visit: Yes Family Medicine PN Sub Interval history: No vast improvement with liquid pain medicine but no worsening of condition I recommend we continue course and see if this improves itself. Exam (Progress Note) - Constitutional Vitals: Period Temp Pulse Resp BP Sys/Chen Pulse Ox Last 24 Hr 97.4 F-99.9 F 74-107 16-20 137-158/70-77 96-100 General appearance: normal weight, no acute distress - Head Head exam: Present: normal inspection, normocephalic - ENT ENT exam: Present: normal exam, normal external ear exam, other (Oral mucositis and pharyngitis consistent with post intubation and NG tube placement overall still difficulty swallowing secondary to pain I recommend continued observation ) - Respiratory Respiratory exam: Present: other (No difficulty breathing or shortness of breath ) - GI/Abdominal GI/Abdominal exam: Present: soft - Extremities Exam Extremities exam: Present: normal inspection, normal capillary refill - Neurological Exam Neurological exam: Present: alert, oriented X3, CN II-XII intact - Psychiatric Psychiatric exam: Present: normal affect, normal mood - Skin Skin exam: Present: normal color, warm Results - Labs CBC & BMP: 08/20/16 07:50 08/20/16 07:50 Lab Results: I have reviewed the past 24 hour labs - Diagnostic Findings Procedure: CT: pending, image reviewed by me, report reviewed by me (I agree with radiology's interpretation no gross process causing the pharyngitis) Specialty Discharge - Follow Up or Referrals
[2016-08-21] MEDS: ACETAMINOPHEN 325 MG/10.15 ML UDCUP PO PRN (11:11)
--- NOTE | 2016-08-21 12:49 | Pulmonology Progress Note ---
Pulmonary - PN: Subj Interval history: Patient is an 81-year-old that has coronary artery disease and COPD. He came in with left-sided chest pleurisy and shortness of breath and has a left upper lobe pneumonia. His cultures have grown pneumococcal pneumonia. He was ventilated for a while but is done well with his breathing. He is completed over 10 days of antibiotics. He does have a very sore throat after having an ET tube and NG tube. This is his major complaint now. He says he is feeling a little better now and the viscous lidocaine is helping. He is eating a little bit. He does have some mild congestion. He want to try to sit up more. Exam (Progress Note) - Constitutional Vitals: Period Temp Pulse Resp BP Sys/Chen Pulse Ox Last 24 Hr 97.4 F-99.9 F 67-107 16-20 142-158/68-77 95-100 Exam: General appearance: no distress (The patient is more alert and looks like he is a little more comfortable.) - Head Head exam: Present: normal inspection, normocephalic - Eye Eye exam: Present: EOMI. Absent: scleral icterus Pupils: Present: NEVILLE - ENT ENT exam: Present: normal exam, he does have a bruised and inflamed throat. - Neck Neck exam: Present: normal inspection. Absent: lymphadenopathy, thyromegaly - Respiratory Respiratory exam: Present: Patient has good breath sounds bilaterally and does have some rhonchi in the upper lung price. - Cardiovascular Cardiovascular exam: Present: regular rate and rhythm, he is back in a sinus rhythm.. Absent: gallop, systolic murmur - GI/Abdominal GI/Abdominal exam: Present: normal bowel sounds, soft. Absent: organomegaly, tenderness - Extremities Exam Extremities exam: Absent: calf tenderness, edema - Neurological Exam Neurological exam: Present: He is moving everything fairly well. - Psychiatric Psychiatric exam: Present: He is somewhat depressed now. - Skin Skin exam: Present: warm, dry Results - Labs CBC & BMP: 08/20/16 07:50 08/20/16 07:50 Assessment and Plan (1) Pneumonia Status: Acute Assessment and plan: The patient has been treated for pneumococcal pneumonia and clinically he is doing much better. He completed a couple weeks of antibiotics and will see how he does without the antibiotics. Will check a chest x-ray tomorrow. Current Visit: Yes Qualifiers: Pneumonia type: due to Pneumococcus Laterality: left Lung location: upper lobe of lung Qualified Code(s): J13 - Pneumonia due to Streptococcus pneumoniae (2) COPD exacerbation Status: Acute Assessment and plan: The patient has a component of COPD and will continue with treatment. He will continue with bronchodilator therapy. His breathing is much improved now. He still has a little bit of coughing congestion but needs to move around more. Current Visit: Yes (3) Coronary artery disease Status: Acute Assessment and plan: Patient has known coronary artery disease with previous stents. His chest pain sounds like pleurisy however. He is not in heart failure and he is hemodynamically stable Current Visit: No (4) Acute respiratory failure with hypoxemia Status: Resolved Assessment and plan: The patient had respiratory failure from pneumonia but is much better now. His breathing is much better. He is still extremely weak but is doing much better. He will continue with physical therapy. Hopefully we can increase his activity. Current Visit: Yes Specialty Discharge - Follow Up or Referrals
--- NOTE | 2016-08-21 13:40 | Hospitalist Progress Note ---
Assessment and Plan (1) COPD (chronic obstructive pulmonary disease) Status: Acute Assessment and plan: Pulmonary assisting Current Visit: No (2) Pneumonia Status: Acute Assessment and plan: Pulmonary managing. Antibiotics discontinued today. Current Visit: Yes Qualifiers: Pneumonia type: due to Pneumococcus Laterality: left Lung location: upper lobe of lung Qualified Code(s): J13 - Pneumonia due to Streptococcus pneumoniae (3) Acute renal insufficiency Status: Acute Current Visit: Yes (4) Acute respiratory failure with hypoxemia Status: Resolved Current Visit: Yes (5) Atrial fibrillation with RVR Status: Acute Current Visit: Yes (6) Anemia Status: Acute Assessment and plan: Transfused 2 units 08/18/16. Stable since Current Visit: Yes Qualifiers: Anemia type: unspecified type Qualified Code(s): D64.9 - Anemia, unspecified Hospitalist: Subjective Interval history: No acute events overnight. Patient feels a little better today. Able to eat some eggs for breakfast. ENT is assisting with patient's continuous throat pain , which seems to be a little better today. Yesterday evening patient seemed quite depressed, this is a little better today. Working with physical therapy. Working on swing bed placement following discharge. Exam - Constitutional Vitals: Period Temp Pulse Resp BP Sys/Chen Pulse Ox Last 24 Hr 97.4 F-99.9 F 67-107 16-20 142-158/68-77 95-100 General appearance: normal weight - Head Head exam: Present: normocephalic, atraumatic - Eye Eye exam: Present: EOMI Pupils: Present: NEVILLE - ENT ENT exam: Present: normal exam - Neck Neck exam: Present: normal inspection - Respiratory Respiratory exam: Present: clear to auscultation bilaterally. Absent: rhonchi, wheezes - Cardiovascular Cardiovascular exam: Present: regular rate and rhythm - GI/Abdominal GI/Abdominal exam: Present: normal bowel sounds, soft. Absent: tenderness, rebound - Extremities Exam Extremities exam: Present: normal inspection - Back Exam Back exam: Present: normal inspection - Neurological Exam Neurological exam: Present: alert - Psychiatric Psychiatric exam: Present: normal affect, normal mood - Skin Skin exam: Present: warm, intact Results - Labs CBC & BMP: 08/20/16 07:50 08/20/16 07:50 Specialty Discharge - Follow Up or Referrals
[2016-08-21] MEDS: MIRTAZAPINE 15 MG TABLET PO SCH (20:23)
[2016-08-21] MEDS: MYLANTA/LIDO VISC/DIPH 300 ML BOTTLE SWISH/SWAL PRN (20:24)
[2016-08-22] MEDS: INSULIN REGULAR 100 UNIT/ML SUBCUT SCH ×5 (00:38→23:35)
[2016-08-22] MEDS: ALBUTEROL/IPRATROPIUM 3 ML NEB RESP TX SCH ×4 (01:05→19:15)
[2016-08-22 05:46] LABS: Eosinophils # 0.1 10*3/uL (0.0-0.87); Eosinophils % 0.7 % (0.00-10.9); Hematocrit 26.7 VOL% (42.0-52.0); Hemoglobin 8.6 GM/DL (14.0-18.0); Immature Granulocytes % 0.4 %; Immature Granulocytes Absolute 0.04 #; Lymphocytes # 0.6 10*3/uL (1.4-4.0); Lymphocytes % 6.3 % (21.2-54.2); Mean Corpuscular HGB Conc 32.2 GM/DL (32-36); Mean Corpuscular Hemoglobin 30 PG (27-34); Mean Corpuscular Volume 94.3 FL (87-102); Mean Platelet Volume 10.1 FL (9.6-12.0); Monocytes # 0.4 10*3/uL (0.11-0.8); Monocytes % 4.8 % (1.7-12.7); Neutrophils # 7.8 10*3/uL (1.4-7.4); Neutrophils % 87.8 % (38.7-73.9); Platelet Count 232 T/CUMM (130-400); Red Blood Count 2.83 MC/CUMM (3.8-5.5); Red Cell Distribution Width 14.1 % (9.3-17.3); White Blood Count 8.9 T/CUMM (4-12)
[2016-08-22 06:11] LABS: Calcium 7.2 MG/DL (8.5-10.1); Magnesium 2.3 MG/DL (1.8-2.4); Osmolality,Calculated 293.7 MOS/KG (273-304); Potassium 3.6 MMOL/L (3.5-5.1)
[2016-08-22] MEDS: HYDROcod/ACETAMIN 7.5-325 MG/15 ML UDCUP PO PRN ×3 (07:34→20:03)
[2016-08-22] MEDS: MYLANTA/LIDO VISC/DIPH 300 ML BOTTLE SWISH/SWAL SCH ×4 (08:53→20:02)
[2016-08-22] MEDS: DABIGATRAN 75 MG CAPSULE PO SCH ×2 (08:55→20:01)
[2016-08-22] MEDS: METOPROLOL TARTRATE 50 MG TABLET PER TUBE SCH ×2 (08:55→20:02)
[2016-08-22] MEDS: AMIODARONE 200 MG TABLET PER TUBE SCH ×3 (08:55→20:02)
[2016-08-22] MEDS: ASPIRIN EC 81 MG TABLET PO SCH (08:56)
[2016-08-22] MEDS: predniSONE 10 MG TABLET PO SCH (08:56)
[2016-08-22] MEDS: DILTIAZEM 30 MG TABLET PO SCH ×3 (08:56→20:02)
[2016-08-22] MEDS: CLOPIDOGREL 75 MG TABLET PER TUBE SCH (08:56)
[2016-08-22] MEDS: BUTALBITAL/ACETAMIN/CAFFEINE 50-325-40 MG TABLET PER TUBE SCH ×2 (08:56→20:02)
[2016-08-22] MEDS: LACTULOSE 20 GM/30 ML UDCUP PO SCH (08:56)
[2016-08-22] MEDS: POLYETHYLENE GLYCOL POWDER 17 GM PACK PO SCH (08:56)
[2016-08-22] MEDS: PANTOPRAZOLE 40 MG VIAL IV SCH ×2 (08:57→20:02)
[2016-08-22] MEDS: DESITIN 4OZ/NYSTATIN 15 GRAM MIXTURE PASTE TOP SCH ×2 (09:01→20:02)
--- NOTE | 2016-08-22 09:17 | Hospitalist Progress Note ---
<Beth Kim - Last Filed: 08/22/16 09:18> Assessment and Plan (1) Acute renal insufficiency Status: Acute Assessment and plan: BUN/Creatinine at 31/0.60 today greatly improved; continue to monitor. Hydrate as indicated. Current Visit: Yes (2) Anemia Status: Acute Assessment and plan: H/H-8.6/26.7 today; transfused 2 units on 08/18. Will continue to monitor. Current Visit: Yes Qualifiers: Anemia type: unspecified type Qualified Code(s): D64.9 - Anemia, unspecified (3) COPD exacerbation Status: Resolved Current Visit: Yes Hospitalist: Subjective Interval history: Patient seen and examined; no significant overnight events. Awaiting swing bed placement. Exam - Constitutional Vitals: Period Temp Pulse Resp BP Sys/Chen Pulse Ox Last 24 Hr 96.5 F-98.7 F 67-95 16-24 134-147/55-68 76-100 General appearance: normal weight, no acute distress - Head Head exam: Present: normal inspection, normocephalic - Eye Eye exam: Present: EOMI, conjunctival injection Pupils: Present: NEVILLE, normal accommodation - ENT ENT exam: Present: normal exam, normal external ear exam, normal oropharynx - Neck Neck exam: Present: normal inspection. Absent: lymphadenopathy, meningismus, tenderness, thyromegaly - Respiratory Respiratory exam: Present: clear to auscultation bilaterally, accessory muscle use, chest wall tenderness, decreased breath sounds. Absent: rales, rhonchi, stridor, wheezes - Cardiovascular Cardiovascular exam: Present: regular rate and rhythm. Absent: carotid bruit, diastolic murmur, gallop, JVD, rubs, systolic murmur - GI/Abdominal GI/Abdominal exam: Present: normal bowel sounds, soft - Extremities Exam Extremities exam: Present: normal inspection, normal capillary refill, full ROM - Back Exam Back exam: Present: normal inspection - Neurological Exam Neurological exam: Present: alert, oriented X3, CN II-XII intact - Psychiatric Psychiatric exam: Present: normal affect, normal mood - Skin Skin exam: Present: normal color, warm, dry Results - Labs CBC & BMP: 08/22/16 05:33 08/22/16 05:33 Lab Results: I have reviewed the past 24 hour labs Specialty Discharge - Follow Up or Referrals <Justin,Lanee - Last Filed: 08/22/16 12:12> Assessment and Plan (1) COPD (chronic obstructive pulmonary disease) Status: Acute Current Visit: No (2) Pneumonia Status: Acute Current Visit: Yes Qualifiers: Pneumonia type: due to Pneumococcus Laterality: left Lung location: upper lobe of lung Qualified Code(s): J13 - Pneumonia due to Streptococcus pneumoniae (3) Acute renal insufficiency Status: Acute Current Visit: Yes (4) Acute respiratory failure with hypoxemia Status: Resolved Current Visit: Yes (5) Atrial fibrillation with RVR Status: Acute Current Visit: Yes (6) Anemia Status: Acute Current Visit: Yes Qualifiers: Anemia type: unspecified type Qualified Code(s): D64.9 - Anemia, unspecified Hospitalist: Subjective Interval history: Patient seen and examined independently of ROSE Kim, agree with assessment and plan as documented. Still with some throat pain, but seems a little better. Leukocytosis is resolved. He did have a slight drop in his H/H, will recheck in am. Exam - Constitutional Vitals: Period Temp Pulse Resp BP Sys/Chen Pulse Ox Last 24 Hr 96.5 F-98.7 F 69-95 16-24 134-147/55-67 76-100 Results - Labs CBC & BMP: 08/22/16 05:33 08/22/16 05:33
--- NOTE | 2016-08-22 09:26 | XRay Report ---
Referring Physician: Eugene Poole MD Exam: XR chest 1V portable Date: August 22, 2016 at 6:04 AM Reason: Pneumonia Comparison: Chest one view portable August 14, 2016 Findings: The cardiac silhouette is upper normal in size, and the patient is status post sternotomy. There are hazy scattered opacities within the left lung and possibly within the right lung. This is concerning for pneumonia, but other considerations include pulmonary edema. No pneumothorax or pleural fluid is identified. The osseous structures appear stable. Impression: There has been no significant change. PROCEDURE INTERPRETED AT [facility] DEPARTMENT OF RADIOLOGY Final Report Signed by: Dr. Seven Osei
--- NOTE | 2016-08-22 09:36 | Pulmonology Progress Note ---
Pulmonary - PN: Subj Interval history: Patient is an 81-year-old that has coronary artery disease and COPD. He came in with left-sided chest pleurisy and shortness of breath and has a left upper lobe pneumonia. His cultures have grown pneumococcal pneumonia. He was ventilated for a while but is done well with his breathing. He is completed over 10 days of antibiotics. He does have a very sore throat after having an ET tube and NG tube. He still has some cough and congestion but his chest x- ray is looking okay. He still complains of sore throat although he is eating a little more. Overall he is a little better and needs to get out of bed. Exam (Progress Note) - Constitutional Vitals: Period Temp Pulse Resp BP Sys/Chen Pulse Ox Last 24 Hr 96.5 F-98.7 F 67-95 16-24 134-147/55-68 76-100 Exam: General appearance: no distress (The patient is more alert and looks like he is a little more comfortable.) - Head Head exam: Present: normal inspection, normocephalic - Eye Eye exam: Present: EOMI. Absent: scleral icterus Pupils: Present: NEVILLE - ENT ENT exam: Present: normal exam, he does have a bruised and inflamed throat. - Neck Neck exam: Present: normal inspection. Absent: lymphadenopathy, thyromegaly - Respiratory Respiratory exam: Present: Patient has good breath sounds bilaterally but he does have some rhonchi and is coughing some. - Cardiovascular Cardiovascular exam: Present: regular rate and rhythm, he is back in a sinus rhythm.. Absent: gallop, systolic murmur - GI/Abdominal GI/Abdominal exam: Present: normal bowel sounds, soft. Absent: organomegaly, tenderness - Extremities Exam Extremities exam: Absent: calf tenderness, edema - Neurological Exam Neurological exam: Present: He is moving everything fairly well. - Psychiatric Psychiatric exam: Present: He is somewhat depressed now. - Skin Skin exam: Present: warm, dry Results - Labs CBC & BMP: 08/22/16 05:33 08/22/16 05:33 - Diagnostic Findings Procedure: Chest x-ray: image reviewed by me, report reviewed by me (Chest x- ray is improved and he just has minimal left upper lobe infiltrate.) Assessment and Plan (1) Pneumonia Status: Acute Assessment and plan: The patient has been treated for pneumococcal pneumonia and clinically he is doing much better. He completed a couple weeks of antibiotics and will see how he does without the antibiotics. His chest x-ray is much better. Current Visit: Yes Qualifiers: Pneumonia type: due to Pneumococcus Laterality: left Lung location: upper lobe of lung Qualified Code(s): J13 - Pneumonia due to Streptococcus pneumoniae (2) COPD exacerbation Status: Resolved Assessment and plan: The patient has a component of COPD and will continue with treatment. He will continue with bronchodilator therapy. He still has some productive cough but needs to move around more. Current Visit: Yes (3) Coronary artery disease Status: Acute Assessment and plan: Patient has known coronary artery disease with previous stents. His chest pain sounds like pleurisy however. He is not in heart failure and he is hemodynamically stable Current Visit: No (4) Acute respiratory failure with hypoxemia Status: Resolved Assessment and plan: The patient had respiratory failure from pneumonia but is much better now. His breathing is much better. He is still extremely weak but is doing much better. He will continue with physical therapy. Hopefully he can get up and move around a little more. Current Visit: Yes Specialty Discharge - Follow Up or Referrals
[2016-08-22] MEDS: MIRTAZAPINE 15 MG TABLET PO SCH (20:01)
[2016-08-23] MEDS: ALBUTEROL/IPRATROPIUM 3 ML NEB RESP TX SCH ×4 (01:01→19:06)
[2016-08-23] MEDS: HYDROcod/ACETAMIN 7.5-325 MG/15 ML UDCUP PO PRN ×4 (04:38→21:34)
[2016-08-23] MEDS: INSULIN REGULAR 100 UNIT/ML SUBCUT SCH ×3 (05:03→18:04)
[2016-08-23 06:56] LABS: Eosinophils # 0.1 10*3/uL (0.0-0.87); Eosinophils % 0.7 % (0.00-10.9); Hematocrit 25.7 VOL% (42.0-52.0); Hemoglobin 8.5 GM/DL (14.0-18.0); Immature Granulocytes % 0.6 %; Immature Granulocytes Absolute 0.04 #; Lymphocytes # 0.5 10*3/uL (1.4-4.0); Lymphocytes % 7.5 % (21.2-54.2); Mean Corpuscular HGB Conc 33.1 GM/DL (32-36); Mean Corpuscular Hemoglobin 30 PG (27-34); Mean Corpuscular Volume 91.8 FL (87-102); Mean Platelet Volume 10.3 FL (9.6-12.0); Monocytes # 0.4 10*3/uL (0.11-0.8); Monocytes % 5.7 % (1.7-12.7); Neutrophils # 5.8 10*3/uL (1.4-7.4); Neutrophils % 85.5 % (38.7-73.9); Platelet Count 226 T/CUMM (130-400); Red Cell Distribution Width 13.7 % (9.3-17.3); White Blood Count 6.8 T/CUMM (4-12)
[2016-08-23 07:36] LABS: Albumin 1.3 G/DL (3.4-5.0); Bilirubin,Total 0.6 MG/DL (0.2-1.0); Magnesium 2.2 MG/DL (1.8-2.4); Osmolality,Calculated 287.1 MOS/KG (273-304); Phosphorous 1.8 MG/DL (2.5-4.9); Potassium 3.7 MMOL/L (3.5-5.1); Total Protein 4.4 G/DL (6.4-8.3)
[2016-08-23] MEDS: DILTIAZEM 30 MG TABLET PO SCH ×4 (08:50→21:28)
[2016-08-23] MEDS: AMIODARONE 200 MG TABLET PER TUBE SCH ×4 (08:50→21:29)
[2016-08-23] MEDS: METOPROLOL TARTRATE 50 MG TABLET PER TUBE SCH ×2 (08:50→21:29)
[2016-08-23] MEDS: LACTULOSE 20 GM/30 ML UDCUP PO SCH (08:50)
[2016-08-23] MEDS: ASPIRIN EC 81 MG TABLET PO SCH (08:50)
[2016-08-23] MEDS: MYLANTA/LIDO VISC/DIPH 300 ML BOTTLE SWISH/SWAL SCH ×4 (08:50→21:36)
[2016-08-23] MEDS: BUTALBITAL/ACETAMIN/CAFFEINE 50-325-40 MG TABLET PER TUBE SCH ×2 (08:50→21:28)
[2016-08-23] MEDS: CLOPIDOGREL 75 MG TABLET PER TUBE SCH (08:51)
[2016-08-23] MEDS: DABIGATRAN 75 MG CAPSULE PO SCH ×2 (08:51→21:29)
[2016-08-23] MEDS: DESITIN 4OZ/NYSTATIN 15 GRAM MIXTURE PASTE TOP SCH ×2 (08:51→21:36)
[2016-08-23] MEDS: predniSONE 10 MG TABLET PO SCH (08:51)
[2016-08-23] MEDS: PANTOPRAZOLE 40 MG VIAL IV SCH ×2 (08:51→21:36)
[2016-08-23] MEDS: POLYETHYLENE GLYCOL POWDER 17 GM PACK PO SCH (08:51)
--- NOTE | 2016-08-23 09:29 | Pulmonology Progress Note ---
Pulmonary - PN: Subj Interval history: Patient is an 81-year-old that has coronary artery disease and COPD. He came in with left-sided chest pleurisy and shortness of breath and has a left upper lobe pneumonia. His cultures have grown pneumococcal pneumonia. He was ventilated for a while but is done well with his breathing. He is completed over 10 days of antibiotics. He does have a very sore throat after having an ET tube and NG tube. He still has some cough and congestion but his chest x- ray is looking okay. He says he did not sleep that well but feels better today. He ate better today. He is still coughing up some secretions but still seems to be breathing better. He still is very weak. Exam (Progress Note) - Constitutional Vitals: Period Temp Pulse Resp BP Sys/Chen Pulse Ox Last 24 Hr 97.7 F-98.8 F 63-81 18-20 127-163/55-73 95-100 Exam: General appearance: no distress (The patient is more alert and looks like he is a little more comfortable.) - Head Head exam: Present: normal inspection, normocephalic - Eye Eye exam: Present: EOMI. Absent: scleral icterus Pupils: Present: NEVILLE - ENT ENT exam: Present: normal exam, he does have a bruised and inflamed throat. - Neck Neck exam: Present: normal inspection. Absent: lymphadenopathy, thyromegaly - Respiratory Respiratory exam: Present: Patient has good breath sounds bilaterally and seems to be moving air fairly well. He does have some rhonchi present. - Cardiovascular Cardiovascular exam: Present: regular rate and rhythm, he is back in a sinus rhythm.. Absent: gallop, systolic murmur - GI/Abdominal GI/Abdominal exam: Present: normal bowel sounds, soft. Absent: organomegaly, tenderness - Extremities Exam Extremities exam: Absent: calf tenderness, edema - Neurological Exam Neurological exam: Present: He is moving everything fairly well. - Psychiatric Psychiatric exam: Present: He is somewhat depressed now. - Skin Skin exam: Present: warm, dry Results - Labs CBC & BMP: 08/23/16 06:00 08/23/16 06:00 - Diagnostic Findings Procedure: Chest x-ray: image reviewed by me, report reviewed by me (Chest x- ray shows some slight haziness in the left lung but is otherwise clear. He does have COPD changes.) Assessment and Plan (1) Pneumonia Status: Acute Assessment and plan: The patient has been treated for pneumococcal pneumonia and clinically he is doing much better. He completed a couple weeks of antibiotics and will see how he does without the antibiotics. His chest x-ray is much better. His white count is down although he still has some cough. Current Visit: Yes Qualifiers: Pneumonia type: due to Pneumococcus Laterality: left Lung location: upper lobe of lung Qualified Code(s): J13 - Pneumonia due to Streptococcus pneumoniae (2) COPD exacerbation Status: Resolved Assessment and plan: The patient has a component of COPD and will continue with treatment. He will continue with bronchodilator therapy. He still has some productive cough but needs to move around more. Current Visit: Yes (3) Coronary artery disease Status: Acute Assessment and plan: Patient has known coronary artery disease with previous stents. His chest pain sounds like pleurisy however. He is not in heart failure and he is hemodynamically stable Current Visit: No (4) Acute respiratory failure with hypoxemia Status: Resolved Assessment and plan: The patient had respiratory failure from pneumonia but is much better now. His breathing is much better. He is still extremely weak but is doing much better. He will continue with physical therapy. He will continue with bronchodilator therapy. Current Visit: Yes Specialty Discharge - Follow Up or Referrals
--- NOTE | 2016-08-23 10:09 | Hospitalist Progress Note ---
<Beth Kim - Last Filed: 08/23/16 10:07> Assessment and Plan (1) Acute renal insufficiency Status: Acute Assessment and plan: BUN/Creatinine at 31/0.60 today greatly improved; continue to monitor. Hydrate as indicated. 08/23-BUN/Creatinine at 26/0.60 today down from 30/0.60 on yesterday. Will recheck in AM. Current Visit: Yes (2) Anemia Status: Acute Assessment and plan: H/H-8.6/26.7 today; transfused 2 units on 08/18. Will continue to monitor. Current Visit: Yes Qualifiers: Anemia type: unspecified type Qualified Code(s): D64.9 - Anemia, unspecified (3) COPD exacerbation Status: Resolved Current Visit: Yes Hospitalist: Subjective Interval history: Patient seen and examined; no significant overnight events. Phosphorus noted at 1.8 today; will correct per pharmacy recommendation. Awaiting swing bed placement. Exam - Constitutional Vitals: Period Temp Pulse Resp BP Sys/Chen Pulse Ox Last 24 Hr 97.7 F-98.8 F 63-81 18-20 127-163/55-73 95-100 General appearance: normal weight, no acute distress - Head Head exam: Present: normal inspection, normocephalic, atraumatic - Eye Eye exam: Present: EOMI. Absent: conjunctival injection, nystagmus Pupils: Present: NEVILLE, normal accommodation - ENT ENT exam: Present: normal exam, normal external ear exam, normal oropharynx - Neck Neck exam: Present: normal inspection. Absent: lymphadenopathy, meningismus, tenderness, thyromegaly - Respiratory Respiratory exam: Present: decreased breath sounds. Absent: rales, rhonchi, stridor, wheezes - Cardiovascular Cardiovascular exam: Present: regular rate and rhythm. Absent: carotid bruit, diastolic murmur, gallop, JVD, rubs, systolic murmur - GI/Abdominal GI/Abdominal exam: Present: normal bowel sounds, soft - Extremities Exam Extremities exam: Present: edema (+ 2 edema noted to bilateral lower extremeties ) - Back Exam Back exam: Present: normal inspection - Neurological Exam Neurological exam: Present: alert, oriented X3 - Psychiatric Psychiatric exam: Present: normal affect, normal mood - Skin Skin exam: Present: normal color, warm, dry Results - Labs CBC & BMP: 08/23/16 06:00 08/23/16 06:00 Lab Results: I have reviewed the past 24 hour labs Specialty Discharge - Follow Up or Referrals <Chito Anderson - Last Filed: 08/23/16 12:04> Assessment and Plan (1) COPD (chronic obstructive pulmonary disease) Status: Acute Current Visit: No (2) Pneumonia Status: Acute Current Visit: Yes Qualifiers: Pneumonia type: due to Pneumococcus Laterality: left Lung location: upper lobe of lung Qualified Code(s): J13 - Pneumonia due to Streptococcus pneumoniae (3) Acute renal insufficiency Status: Acute Current Visit: Yes (4) Acute respiratory failure with hypoxemia Status: Resolved Current Visit: Yes (5) Atrial fibrillation with RVR Status: Acute Current Visit: Yes (6) Anemia Status: Acute Current Visit: Yes Qualifiers: Anemia type: unspecified type Qualified Code(s): D64.9 - Anemia, unspecified Hospitalist: Subjective Interval history: Patient seen and examined independently of VITICULTURIST Julio, agree with assessment and plan as documented. Very weak, working with PT. Waiting on swing bed placement. Exam - Constitutional Vitals: Period Temp Pulse Resp BP Sys/Chen Pulse Ox Last 24 Hr 97.7 F-98.8 F 63-81 18-20 146-163/62-73 95-100 Results - Labs CBC & BMP: 08/23/16 06:00 08/23/16 06:00
--- NOTE | 2016-08-23 10:16 | XRay Report ---
Referring Physician: BOO Kim Exam: XR chest 1V portable Date: August 23, 2016 5:49 AM Reason: COPD Comparison: Chest one view portable August 22, 2016 Findings: The cardiac silhouette is upper normal in size, and the patient is status post sternotomy. There are hazy scattered opacities within the left lung and possibly within the right lung. This is concerning for pneumonia, but other considerations include pulmonary edema. Superimposed scarring is not excluded. No pneumothorax or pleural effusion is identified. The osseous structures appear stable. Impression: There has been no significant change. PROCEDURE INTERPRETED AT [facility] DEPARTMENT OF RADIOLOGY Final Report Signed by: Dr. Seven Osei
[2016-08-23] MEDS ORDERED: SODIUM PHOSPHATE INJ 15 MMOL in SODIUM CHLORIDE 0.9% 250 ML IV ONE (10:30)
[2016-08-23] MEDS: POTASSIUM PHOS/SOD PHOS POWDER 250 MG PACK PO SCH ×2 (15:25→21:33)
[2016-08-23] MEDS: MIRTAZAPINE 15 MG TABLET PO SCH (21:28)
[2016-08-24] MEDS: ALBUTEROL/IPRATROPIUM 3 ML NEB RESP TX SCH ×4 (00:17→18:53)
[2016-08-24] MEDS: INSULIN REGULAR 100 UNIT/ML SUBCUT SCH ×4 (02:56→17:17)
[2016-08-24] MEDS: HYDROcod/ACETAMIN 7.5-325 MG/15 ML UDCUP PO PRN ×4 (04:40→21:59)
[2016-08-24 07:44] LABS: Eosinophils # 0.1 10*3/uL (0.0-0.87); Eosinophils % 1.8 % (0.00-10.9); Hemoglobin 8.2 GM/DL (14.0-18.0); Immature Granulocytes % 0.5 %; Immature Granulocytes Absolute 0.03 #; Lymphocytes # 0.6 10*3/uL (1.4-4.0); Lymphocytes % 9.7 % (21.2-54.2); Mean Corpuscular HGB Conc 32.8 GM/DL (32-36); Mean Corpuscular Hemoglobin 30 PG (27-34); Mean Corpuscular Volume 91.2 FL (87-102); Mean Platelet Volume 10.1 FL (9.6-12.0); Monocytes # 0.4 10*3/uL (0.11-0.8); Monocytes % 5.9 % (1.7-12.7); Neutrophils # 5.1 10*3/uL (1.4-7.4); Neutrophils % 82.1 % (38.7-73.9); Platelet Count 237 T/CUMM (130-400); Red Blood Count 2.74 MC/CUMM (3.8-5.5); Red Cell Distribution Width 13.4 % (9.3-17.3); White Blood Count 6.3 T/CUMM (4-12)
[2016-08-24] MEDS: DILTIAZEM 30 MG TABLET PO SCH (08:04)
[2016-08-24] MEDS: BUTALBITAL/ACETAMIN/CAFFEINE 50-325-40 MG TABLET PER TUBE SCH ×2 (08:05→22:08)
[2016-08-24] MEDS: predniSONE 10 MG TABLET PO SCH (08:05)
[2016-08-24] MEDS: ASPIRIN EC 81 MG TABLET PO SCH (08:05)
[2016-08-24] MEDS: AMIODARONE 200 MG TABLET PER TUBE SCH (08:05)
[2016-08-24] MEDS: CLOPIDOGREL 75 MG TABLET PER TUBE SCH (08:05)
[2016-08-24] MEDS: DABIGATRAN 75 MG CAPSULE PO SCH ×2 (08:05→21:58)
[2016-08-24] MEDS: POTASSIUM PHOS/SOD PHOS POWDER 250 MG PACK PO SCH ×3 (08:05→22:08)
[2016-08-24] MEDS: LACTULOSE 20 GM/30 ML UDCUP PO SCH (08:05)
[2016-08-24] MEDS: METOPROLOL TARTRATE 50 MG TABLET PER TUBE SCH (08:05)
[2016-08-24] MEDS: PANTOPRAZOLE 40 MG VIAL IV SCH ×2 (08:06→21:57)
[2016-08-24] MEDS: DESITIN 4OZ/NYSTATIN 15 GRAM MIXTURE PASTE TOP SCH ×2 (08:06→22:00)
[2016-08-24] MEDS: POLYETHYLENE GLYCOL POWDER 17 GM PACK PO SCH (08:06)
[2016-08-24] MEDS: MYLANTA/LIDO VISC/DIPH 300 ML BOTTLE SWISH/SWAL SCH ×4 (08:06→21:58)
--- NOTE | 2016-08-24 08:10 | Case Mgmt Physician Query Form ---
TB Signs and Symptoms Screening ([place]) INSTRUCTIONS: To be completed annually on residents/staff with a significant Tuberculin Skin Test (TST) upon admission/hire or a prior significant TST. To be completed on all staff at hire. Please respond to each listed symptom with an (X) in either the "YES" or "NO" box. Do you currently have any of the following symptoms: YES NO ( ) (x ) A cough If yes, is it: ( ) Productive ( ) Non- productive ( ) (x ) Hemoptysis (spitting up blood) ( ) (x ) Chest pains ( ) (x ) Weight Loss ( ) (x ) Fever ( ) (x ) Night Sweats ( ) ( ) Weakness ( ) (x ) Loss of Appetite ( ) (x ) Difficulty Breathing If you answered YES" to any of the above questions, how long have symptoms been present? Weakness due to hospitalization Comments: If you have any questions, please contact me . Thank you, Charisma MONZONW Email: [email or web address] [facility]
[2016-08-24 08:12] LABS: Calcium 6.9 MG/DL (8.5-10.1); Magnesium 2.1 MG/DL (1.8-2.4); Osmolality,Calculated 281.4 MOS/KG (273-304); Potassium 3.7 MMOL/L (3.5-5.1)
[2016-08-24] MEDS: amLODIPine 2.5 MG TABLET PO SCH (09:18)
--- NOTE | 2016-08-24 09:19 | Cardiology Progress Note ---
Assessment and Plan (1) Pleuritic chest pain Status: Acute Assessment and plan: 1. 81 year-old WM well known to me with remote history of strokes, significant CAD with CABG in 2001 (grafts closed) status post left main stent in 2008, and subsequent restenting distal left main and LAD August 2015 with good result and resolution of symptoms. He now presented with fever, increasing dyspnea with significant wheezing, left-sided infiltrate suggesting pneumonia (leukocytosis on admission) 2. Acute renal failure, possibly related to diuresis? Holding ARB and diuretics for now. 3. Previously normal LV systolic function; will check echocardiogram 4. Trivial troponin elevation is likely due to his illness (0.1), and not ACS 5. Elevated BNP noted August 07 update: 1. Clinically diagonals improve modestly although he developed new atrial fibrillation with RVR yesterday afternoon (started CPAP last year but is been less compliant in recent weeks; this may be a contributor) 2. Left-sided pneumonia 3. Normal LV systolic function and an echocardiogram 4. Add low-dose amiodarone and Toprol to control rate (improved from the 140s to the 120 range today) 5. Creatinine is improved to 1.6 from 2.2 August 08 uptake: 1. Clinically Thomas seems to be slowly improving, but still has some wheezing bilaterally that persists 2. Continue to have atrial fibrillation with intermittent mild RVR; continue amiodarone, with low-dose Toprol 3. Creatinine is now normalized 4. Normal ejection fraction 5. Restart ARB 6. Cardioversion could be considered as he is on anticoagulation chronically, however at this point, I prefer not to sedate him to avoid complications from that. August 09 update: 1. Bilateral pneumonia with increasing respiratory embarrassment; 100% Nonrebreather and Is Being Considered for Intubation Later This Morning 2. Atrial Fibrillation Persisted, but Rate Is Controlled; If He Stays Rhythm, Cardioversion Could Be Considered a Later Time 3. Normal LV systolic function noted this hospitalization with EF 55% 4. No new recommendations August 24 update: 1. Status post 81-year-old well known to me with remote strokes, significant CAD with CABG in 2001, and left main stenting 2008 which required restenting August 2015, admitted with pneumonia and prolonged illness requiring intubation, now extubated with improving dyspnea and continued hoarseness 2. He had paroxysmal atrial fibrillation which converted to normal sinus rhythm over week ago. She is probably still in sinus rhythm, will check EKG. 3. Change amiodarone to 200 mg twice daily, with plans to reducing it to once a day in the near future, if he maintains normal sinus rhythm per. 4. Change metoprolol to long-acting Toprol 50 mg twice daily 5. Change diltiazem to amlodipine 2.5 g daily for blood pressure control 6. Given his anemia with hematocrit just over 25%, would discontinue aspirin and continue Plavix and low-dose Pradaxa 75 g twice daily 7. Will follow with you. Current Visit: Yes (2) Pneumonia Status: Acute Current Visit: Yes Qualifiers: Pneumonia type: due to Pneumococcus Laterality: left Lung location: upper lobe of lung Qualified Code(s): J13 - Pneumonia due to Streptococcus pneumoniae (3) Renal insufficiency Status: Resolved Current Visit: No (4) Dyslipidemia Status: Chronic Current Visit: No Cardiology - PN: Subj Interval history: Aissatou reports he is feeling better but still a bit discouraged with his slow progress. He reports his breathing is a lot better and he is still hoarse after his intubation but has been off the vent for quite some time now. He is not having chest discomfort. He is not having dizziness or palpitations. He does not describe any overt bleeding. Exam (Progress Note) - Constitutional Vitals: Period Temp Pulse Resp BP Sys/Chen Pulse Ox Last 24 Hr 98 F-99 F 65-96 18-21 139-174/59-84 92-139 General appearance: normal weight, mild distress - Head Head exam: Present: normal inspection, normocephalic, atraumatic - Respiratory Respiratory exam: Present: rhonchi. Absent: wheezes - Cardiovascular Cardiovascular exam: Present: regular rate and rhythm. Absent: diastolic murmur , rubs - GI/Abdominal GI/Abdominal exam: Absent: tenderness, soft - Extremities Exam Extremities exam: Absent: edema Result/EKG - Labs CBC & BMP: 08/24/16 05:39 08/24/16 05:39 Labs: Laboratory Results - last 24 hr 08/23/16 08/23/16 08/24/16 11:59 17:48 00:49 WBC RBC Hgb Hct MCV MCH MCHC RDW Plt Count MPV Neut % (Auto) Lymph % (Auto) [place] % (Auto) Eos % (Auto) Baso % (Auto) Neut # (Auto) Lymph # (Auto) [place] # (Auto) Eos # (Auto) Baso # (Auto) Immature Gran % Nucleated RBC % Immature Gran # Nucleated RBCs # Sodium Potassium Chloride Carbon Dioxide Anion Gap BUN Creatinine GFR Calculation BUN/Creatinine Ratio Glucose POC Glucose 134 H 156 H 103 Calculated Osmolality Calcium Magnesium 08/24/16 08/24/16 05:39 05:39 WBC 6.3 RBC 2.74 L Hgb 8.2 L Hct 25.0 L MCV 91.2 MCH 30 MCHC 32.8 RDW 13.4 Plt Count 237 MPV 10.1 Neut % (Auto) 82.1 H Lymph % (Auto) 9.7 L [place] % (Auto) 5.9 Eos % (Auto) 1.8 Baso % (Auto) 0.0 Neut # (Auto) 5.1 Lymph # (Auto) 0.6 L [place] # (Auto) 0.4 Eos # (Auto) 0.1 Baso # (Auto) 0.0 Immature Gran % 0.5 Nucleated RBC % 0.0 Immature Gran # 0.03 Nucleated RBCs # 0.00 Sodium 140 Potassium 3.7 Chloride 106 Carbon Dioxide 25 Anion Gap 12.7 BUN 21 H Creatinine 0.70 GFR Calculation 103 BUN/Creatinine Ratio 30.00 H Glucose 92 POC Glucose Calculated Osmolality 281.4 Calcium 6.9 L Magnesium 2.1 Specialty Discharge - Follow Up or Referrals
--- NOTE | 2016-08-24 09:23 | EKG Report ---
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
[2016-08-24] MEDS ORDERED: TUBERCULIN SKIN TEST 0.1 ML SYRINGE INTRADERM ONE (09:39)
--- NOTE | 2016-08-24 09:51 | Case Mgmt Physician Query Form ---
LONG STAY PHYSICIAN RECERTIFICATION *This form is to be completed for all Medicare patients before they reach day 20 of their hospitalization. Please complete each section as appropriate.* I certify that hospitalization, and continued hospitalization, for this patient is medically necessary as follows: 1) Reasons of either continued hospitalization of the patient for medical treatment or medically required diagnostic study or special or unusual services for cost outlier cases are as follows: Swing bed placement, patient unable to walk 2) Estimated time patient will need to remain in hospital: Undetermined 3) Plan for Post Hospital Care: ( ) Home with Primary Care Follow up ( ) Home with Home Health Follow up ( x) LTACH/ Acute Care Rehab/ SNF/Half-Way ( ) Other: If you have any questions, please contact me. Thank you, Linda Martinez RN Case Management W [phone] F [phone] C [phone] [email or web address] If you have any questions, please contact me . Thank you, Charisma FORBES Email: [email or web address]
--- NOTE | 2016-08-24 12:22 | Pulmonology Progress Note ---
Pulmonary - PN: Subj Interval history: Patient is an 81-year-old that has coronary artery disease and COPD. He came in with left-sided chest pleurisy and shortness of breath and has a left upper lobe pneumonia. His cultures have grown pneumococcal pneumonia. He was ventilated for a while but is done well with his breathing. He has completed over 10 days of antibiotics. He does have a very sore throat after having an ET tube and NG tube. He still has some cough and congestion but his chest x- ray is looking okay. He is feeling a little better today and starting to eat a little more. He still coughs up some phlegm but his breathing is better. He wants to try to do more activity. He can probably go to a swing bed soon Exam (Progress Note) - Constitutional Vitals: Period Temp Pulse Resp BP Sys/Chen Pulse Ox Last 24 Hr 98 F-99 F 65-96 18-21 134-174/59-84 92-139 Exam: General appearance: no distress (The patient is more alert and looks like he is a little more comfortable. He is breathing comfortably and eating better.) - Head Head exam: Present: normal inspection, normocephalic - Eye Eye exam: Present: EOMI. Absent: scleral icterus Pupils: Present: NEVILLE - ENT ENT exam: Present: normal exam, he does have a bruised and inflamed throat. His swallowing is better. - Neck Neck exam: Present: normal inspection. Absent: lymphadenopathy, thyromegaly - Respiratory Respiratory exam: Present: Patient has good breath sounds bilaterally and seems to be moving air fairly well. He does have some rhonchi present. - Cardiovascular Cardiovascular exam: Present: regular rate and rhythm, he is back in a sinus rhythm.. Absent: gallop, systolic murmur - GI/Abdominal GI/Abdominal exam: Present: normal bowel sounds, soft. Absent: organomegaly, tenderness - Extremities Exam Extremities exam: Absent: calf tenderness, edema - Neurological Exam Neurological exam: Present: He is moving everything fairly well. He does look a little more active - Psychiatric Psychiatric exam: Present: He is somewhat depressed now. - Skin Skin exam: Present: warm, dry Results - Labs CBC & BMP: 08/24/16 05:39 08/24/16 05:39 Assessment and Plan (1) Pneumonia Status: Acute Assessment and plan: The patient has been treated for pneumococcal pneumonia and clinically he is doing much better. He completed a couple weeks of antibiotics and will see how he does without the antibiotics. His chest x-ray is much better. His white count is down although he still has some cough. His breathing continues to improve Current Visit: Yes Qualifiers: Pneumonia type: due to Pneumococcus Laterality: left Lung location: upper lobe of lung Qualified Code(s): J13 - Pneumonia due to Streptococcus pneumoniae (2) COPD exacerbation Status: Resolved Assessment and plan: The patient has a component of COPD and will continue with treatment. He will continue with bronchodilator therapy. He still has some productive cough but needs to move around more. Hopefully he can increase his physical therapy. Current Visit: Yes (3) Coronary artery disease Status: Acute Assessment and plan: Patient has known coronary artery disease with previous stents. His chest pain sounds like pleurisy however. He is not in heart failure and he is hemodynamically stable Current Visit: No (4) Acute respiratory failure with hypoxemia Status: Resolved Assessment and plan: The patient had respiratory failure from pneumonia but is much better now. His breathing is much better. He is still extremely weak but is doing much better. He will continue with physical therapy. He will continue with bronchodilator therapy. He can probably go to a swing bed soon. Current Visit: Yes Specialty Discharge - Follow Up or Referrals
--- NOTE | 2016-08-24 16:39 | Hospitalist Progress Note ---
Assessment and Plan (1) COPD (chronic obstructive pulmonary disease) Status: Acute Assessment and plan: Pulmonary assisting Current Visit: No (2) Pneumonia Status: Acute Assessment and plan: Pulmonary managing. Resolved Current Visit: Yes Qualifiers: Pneumonia type: due to Pneumococcus Laterality: left Lung location: upper lobe of lung Qualified Code(s): J13 - Pneumonia due to Streptococcus pneumoniae (3) Acute renal insufficiency Status: Resolved Current Visit: Yes (4) Acute respiratory failure with hypoxemia Status: Resolved Current Visit: Yes (5) Atrial fibrillation with RVR Status: Chronic Assessment and plan: Cardiology managing Current Visit: Yes (6) Anemia Status: Acute Assessment and plan: Transfused 2 units 08/18/16. Stable since Current Visit: Yes Qualifiers: Anemia type: unspecified type Qualified Code(s): D64.9 - Anemia, unspecified Hospitalist: Subjective Interval history: No acute events overnight. Patient reports that he is doing better. Appetite is improved. Sleeping better with mirtazepine. Has been accepted to [facility] for tomorrow. Exam - Constitutional Vitals: Period Temp Pulse Resp BP Sys/Chen Pulse Ox Last 24 Hr 96 F-99 F 64-96 17-21 133-153/59-84 95-139 General appearance: normal weight - Head Head exam: Present: normocephalic, atraumatic - Eye Eye exam: Present: EOMI Pupils: Present: NEVILLE - ENT ENT exam: Present: normal exam - Neck Neck exam: Present: normal inspection - Respiratory Respiratory exam: Present: clear to auscultation bilaterally. Absent: rhonchi, wheezes - Cardiovascular Cardiovascular exam: Present: regular rate and rhythm - GI/Abdominal GI/Abdominal exam: Present: normal bowel sounds, soft. Absent: tenderness, rebound - Extremities Exam Extremities exam: Present: normal inspection - Back Exam Back exam: Present: normal inspection - Neurological Exam Neurological exam: Present: alert, oriented X3 - Psychiatric Psychiatric exam: Present: normal affect, normal mood - Skin Skin exam: Present: warm, intact Results - Labs CBC & BMP: 08/24/16 05:39 08/24/16 05:39 Specialty Discharge - Follow Up or Referrals
[2016-08-24] MEDS: MIRTAZAPINE 15 MG TABLET PO SCH (21:57)
[2016-08-24] MEDS: AMIODARONE 200 MG TABLET PO SCH (21:58)
[2016-08-24] MEDS: METOPROLOL SUCCINATE XL 50 MG TABLET PO SCH (22:08)
[2016-08-25] MEDS: INSULIN REGULAR 100 UNIT/ML SUBCUT SCH ×3 (01:00→12:34)
[2016-08-25] MEDS: ALBUTEROL/IPRATROPIUM 3 ML NEB RESP TX SCH ×2 (01:30→07:23)
--- NOTE | 2016-08-25 08:45 | Pulmonology Progress Note ---
Pulmonary - PN: Subj Interval history: Patient is an 81-year-old that has coronary artery disease and COPD. He came in with left-sided chest pleurisy and shortness of breath and has a left upper lobe pneumonia. His cultures have grown pneumococcal pneumonia. He was ventilated for a while but is done well with his breathing. He has completed over 10 days of antibiotics. He does have a very sore throat after having an ET tube and NG tube. Over the last few days his swallowing has improved and he is eating better. He is doing a little bit of physical therapy and looks stronger. He says his breathing is doing okay. He feels much better and is going to a swing bed today. Exam (Progress Note) - Constitutional Vitals: Period Temp Pulse Resp BP Sys/Chen Pulse Ox Last 24 Hr 96 F-99 F 64-82 17-20 133-181/60-72 95-100 Exam: General appearance: no distress (The patient is more alert and looks like he is a little more comfortable. He seems to be a little stronger now.) - Head Head exam: Present: normal inspection, normocephalic - Eye Eye exam: Present: EOMI. Absent: scleral icterus Pupils: Present: NEVILLE - ENT ENT exam: Present: normal exam, he does have a bruised and inflamed throat. His swallowing is better. - Neck Neck exam: Present: normal inspection. Absent: lymphadenopathy, thyromegaly - Respiratory Respiratory exam: Present: Patient has good breath sounds bilaterally and seems to be moving air fairly well. He still has some rhonchi but is coughing a little better. He seems to be comfortable. - Cardiovascular Cardiovascular exam: Present: regular rate and rhythm, he is back in a sinus rhythm.. Absent: gallop, systolic murmur - GI/Abdominal GI/Abdominal exam: Present: normal bowel sounds, soft. Absent: organomegaly, tenderness - Extremities Exam Extremities exam: Absent: calf tenderness, edema - Neurological Exam Neurological exam: Present: He is moving everything fairly well. He does look a little more active. He is a little more alert. - Psychiatric Psychiatric exam: Present: He looks like he has a better attitude now and doing more activity. - Skin Skin exam: Present: warm, dry Results - Labs CBC & BMP: 08/24/16 05:39 08/24/16 05:39 Assessment and Plan (1) Pneumonia Status: Acute Assessment and plan: The patient has been treated for pneumococcal pneumonia and clinically he is doing much better. He completed a couple weeks of antibiotics and will see how he does without the antibiotics. His chest x-ray is much better. His white count is down although he still has some cough. Overall his breathing is better and he is doing well. Current Visit: Yes Qualifiers: Pneumonia type: due to Pneumococcus Laterality: left Lung location: upper lobe of lung Qualified Code(s): J13 - Pneumonia due to Streptococcus pneumoniae (2) COPD exacerbation Status: Resolved Assessment and plan: The patient has a component of COPD and will continue with treatment. He will continue with bronchodilator therapy. He is breathing much better and feels better. He will go to a swing bed today. Current Visit: Yes (3) Coronary artery disease Status: Acute Assessment and plan: Patient has known coronary artery disease with previous stents. His chest pain sounds like pleurisy however. He is not in heart failure and he is hemodynamically stable Current Visit: No (4) Acute respiratory failure with hypoxemia Status: Resolved Assessment and plan: The patient had respiratory failure from pneumonia but is much better now. His breathing is much better. He is doing physical therapy better and moving around more. Overall he is better off going to a swing bed today. Current Visit: Yes Specialty Discharge - Follow Up or Referrals
[2016-08-25] MEDS: LACTULOSE 20 GM/30 ML UDCUP PO SCH (09:05)
[2016-08-25] MEDS: ACETAMINOPHEN 325 MG/10.15 ML UDCUP PO PRN (09:05)
[2016-08-25] MEDS: CLOPIDOGREL 75 MG TABLET PER TUBE SCH (09:06)
[2016-08-25] MEDS: amLODIPine 2.5 MG TABLET PO SCH (09:06)
[2016-08-25] MEDS: METOPROLOL SUCCINATE XL 50 MG TABLET PO SCH (09:06)
[2016-08-25] MEDS: AMIODARONE 200 MG TABLET PO SCH (09:06)
[2016-08-25] MEDS: predniSONE 10 MG TABLET PO SCH (09:06)
[2016-08-25] MEDS: DABIGATRAN 75 MG CAPSULE PO SCH (09:06)
[2016-08-25] MEDS: POLYETHYLENE GLYCOL POWDER 17 GM PACK PO SCH (09:07)
[2016-08-25] MEDS: POTASSIUM PHOS/SOD PHOS POWDER 250 MG PACK PO SCH (09:11)
[2016-08-25] MEDS: PANTOPRAZOLE 40 MG VIAL IV SCH (09:20)
[2016-08-25] MEDS: DESITIN 4OZ/NYSTATIN 15 GRAM MIXTURE PASTE TOP SCH (09:21)
[2016-08-25] MEDS: MYLANTA/LIDO VISC/DIPH 300 ML BOTTLE SWISH/SWAL SCH ×2 (09:22→12:34)
[2016-08-25] MEDS: BUTALBITAL/ACETAMIN/CAFFEINE 50-325-40 MG TABLET PER TUBE SCH (09:22)
--- NOTE | 2016-08-25 09:43 | Discharge Summary ---
<Kulwant Whitemaikjonna - Last Filed: 08/25/16 10:13> Hospital Course - Hospital Course Hospital Course: Mr. Boo is a 81 yr old male patient that was admitted on 08/05 for progressively worsening shortness of breath, cough, and congestion. The pt has a history of hypertension, copd, cad, cab, and cva. CXR revealed left upper lobe pneumonia and left sided pleurisy. The patient was admitted to the hospitalist program for further eval and treatment of pneumonia, copd exacerbation, and acute renal insufficiency. The patient had a relatively long hospital course. Pulmonary and cardiology was consulted to assist in the care of patient. Pt. was treated with broad spectrum antibiotics (Levaquin and Rocephin). Pt was also given IV steroid and inhaled beta agonist nebulized breathing treatments. Cardiology saw patient for new onset of afib. ENT was consulted to evaluate severe throat pain. Evaluation at bedside with speech therapy reveals pharyngitis secondary to mucositis and this causing enough pain where it is difficult to swallow causing his dysphagia. Recommendation for treatment of pain to improve swallowing. Pt. is stable today and his breathing has improved. He will be discharged to [facility] for rehab. Specialty Discharge - Follow Up or Referrals Discharge Plan - Discharge Data Disposition: Disch/Xfer to Snf - Discharge Medications New HYDROcod/ACETAM 7.5-325MG/15ML 15 ml PO Q4H PRN #20 PRN Reason: Pain Moderate (4-7) Lactulose Liquid [Chronulac] 20 gm PO DAILY Magnesium Hydroxide Susp [Milk of Magnesia] 30 ml PO BID PRN #0 PRN Reason: Constipation Metoprolol Succinate Xl [Toprol Xl] 50 mg PO BID tablet Mirtazapine [Remeron] 15 mg PO BEDTIME tablet Phenol 1.4% Throat [place] [Chloraseptic [place]] 5 spray PO Q2H PRN #0 bottle PRN Reason: Sore Throat amLODIPine [Norvasc] 5 mg PO DAILY #30 tablet guaiFENesin ER TAB [Mucinex] 600 mg PO BID tablet predniSONE TAB [PredniSONE] 10 mg PO DAILY tablet Amiodarone Tab [Cordarone Tab] 200 mg PO BID tablet Sodium Chloride 0.65% Nasal Sp [Senath Nasal [place]] 3 spray BOTH NARES QID PRN #0 bottle PRN Reason: Dry Nose Continue Polyethylene Glycol Powder [Miralax] 17 gm PO DAILY Albuterol Neb [Proventil Neb] 2.5 mg RESP TX Q4H PRN PRN Reason: Shortness Of Breath/Wheezing Clopidogrel [Plavix] 75 mg PO DAILY Dabigatran [Pradaxa] 75 mg PO BID Budesonide/Formoterol 160-4.5 [Symbicort 160-4.5] 2 puff INH BID Butalbital/Acet/Caff 50-325-40 [Fioricet 50-325-40 mg Tablet] 1 tablet PO BID Ondansetron [Ondansetron Odt] 4 mg PO Q4H PRN #10 tab.rapdis PRN Reason: Nausea Discontinued amLODIPine [Norvasc] 10 mg PO DAILY Aspirin EC Tab 1 tablet PO DAILY Valsartan 160 mg PO DAILY - Follow Up or Referral - Forms/Instructions Instructions: Chronic Obstructive Pulmonary Disease (GEN) Exam - Constitutional Vitals: Period Temp Pulse Resp BP Sys/Chen Pulse Ox Last 24 Hr 96 F-99.0 F 64-82 17-20 133-181/60-72 95-100 Discharge Results Labs on day of discharge: Labs from last 24 hours 08/25/16 08/25/16 08/25/16 07:16 06:06 00:47 POC Glucose 96 91 98 08/24/16 08/24/16 17:51 11:34 POC Glucose 110 H 120 H DS: Provider Date of admission: 08/05/16 15:33 Primary care physician: Danish Real DO Attending physician on admission: Mehul Thorne MD Consults: 08/05/16 16:50 Consult to Cardiac Rehabilitation [CONS] Routine Reason for Cardiac Rehabilitation: Risk Factor Modification Consult to Physician [CONS] Routine Comment: Consulting Provider: Eugene Poole When should Consulting Provider be notified: Now Person Notified: MD alvarez Consult to Physician [CONS] Routine Comment: Consulting Provider: Phil Moy When should Consulting Provider be notified: Now Consult to Specialist Group: Cardiology Person Notified: MD alvarez 08/05/16 16:57 Consult to Pharmacy [CONS] Routine Reason for Pharmacy Consult: Adjust Meds Renal Funct 08/10/16 15:48 Consult to Dietitian [CONS] Routine Reason for Dietitian: TF-Initiate/Manage 08/15/16 12:32 Consult to Occupational Therapy [CONS] Routine Reason for Occupational Therapy: Evaluate and Treat Consult to Physical Therapy [CONS] Routine Reason for Physical Therapy: Evaluate and Treat 08/20/16 09:05 Consult to Physician [CONS] Routine Comment: Consulting Provider: Goldy Cerrato Person Notified: Danish Date Notified: 08/20/16 Time Notified: 09:23 Discharging clinician: Denis White NP <Venus Azar - Last Filed: 08/25/16 11:41> Hospital Course - Hospital Course Hospital Course: Patient seen this am, his vitals are stable. - Time spent with patient Time with patient DS: Greater than 30 minutes (Time spent:35mins) - Cause of Cause of : Time spent:36mins Diagnosis - Discharge Diagnosis (1) Pneumonia Status: Acute (2) Acute respiratory failure with hypoxemia Status: Resolved (3) Atrial fibrillation with RVR Status: Chronic (4) History of coronary artery stent placement Status: Chronic (5) History of CVA (cerebrovascular accident) Status: Chronic (6) Anemia Status: Acute (7) Mucositis Status: Acute Discharge Plan - Discharge Data Condition at Discharge: Stable Discharge Diet: heart healthy Activity: resume usual activities as tolerated Exam - Constitutional General appearance: no acute distress - Head Head exam: Present: normal inspection - Respiratory Respiratory exam: Present: clear to auscultation bilaterally - Cardiovascular Cardiovascular exam: Present: other (s1 and s2) - GI/Abdominal GI/Abdominal exam: Present: normal bowel sounds - Extremities Exam Extremities exam: Present: normal inspection
[2016-08-25 11:20] VITALS: BP 163/67
[2016-08-25] MEDS ORDERED: amLODIPine 5 MG TABLET PO SCH (12:00)
== END 2016-08-25 13:30 | DRG 207 ==
LOC: N.ED 13:19 → SUATTDRO 15:33 → N.EDINP 15:33 → N.TELEN 16:35 → N.ICU 08-08 20:28 → N.5E 08-15 12:27
PROVIDERS: ADMIT Internal Medicine; ATTEND Internal Medicine